=== PATIENT | male | born 1940 | race Caucasian/White ===

== ENCOUNTER 2023-06-08 16:50 | Inpatient (IN) | payer MEDICARE, BC, SELFPAY ==
[2023-06-08] VITALS (9 sets, daily range): BP systolic 134–164; BP diastolic 54–77; BMI 27.4; BMI 28.0
[2023-06-08 13:52] LABS: % Basophils 0.3 % (0-2); % Eosinophils 0.1 % (0-6); % Immature Granulocytes 0.4 % (0-0.5); % Lymphocytes 13.1 % (20.5-51.1); % Monocytes 10.7 % (1.7-9.3); % Neutrophils 75.4 % (42.2-75.2); Absolute Basophils 0.1 10^3/uL (0-0.2); Absolute Immature Granulocytes 0.1 10^3/uL (0-0.05); Absolute Lymphocytes 2.1 10^3/uL (1.2-3.4); Absolute Monocytes 1.7 10^3/uL (0.1-0.6); Absolute Neutrophils 11.8 10^3/uL (1.4-6.5); Hematocrit 35.1 % (39.0-52.0); Hemoglobin 12.1 g/dL (13.0-18.0); Mean Corp Hgb Conc. 34.5 g/dL (33.0-37.0); Mean Corpuscular Hgb 29.4 pg (27.0-31.0); Mean Corpuscular Volume 85.2 fL (80.0-94.0); Mean Platelet Volume 11.5 fL (7.4-10.4); Nucleated Red Blood Cells % 0 % (-); Platelet Count 219 10^3/uL (130-400); Red Blood Cell Count 4.12 10^6/uL (4.70-6.10); Red Cell Dist. Width 13.6 % (11.5-14.5); White Blood Cell Count 15.7 10^3/uL (4.8-10.8)
[2023-06-08 14:07] LABS: Blood Urea Nitrogen 30 mg/dl (9-20); Calcium 9.2 mg/dl (8.4-10.2); Carbon Dioxide 20 mmol/L (22-30); Chloride 102 mmol/L (98-107); Estimated Creatinine Clearance 55 ml/min; Glucose 110 mg/dl (70-99); Sodium 131 mmol/L (135-145); eGFR > 60.00
--- NOTE | 2023-06-08 14:11 | ED.GENMED ---
History of Present Illness
General
Chief Complaint: Change in Mental Status
Source: patient and ambulance crew
Exam Limitations: altered mental status
Time Seen by Provider: 06/08/23 13:56
Nursing documentation reviewed up to this point in time: agreed with
Travel History
Have you had any contact with someone who has COVID-19?: Unable to Answer
Do you have any symptoms of coronavirus? Fever > 100 degrees, chills, cough, shortness of breath, sore throat, loss of taste or smell, muscle aches, or headache?: Unable to Answer
History of Present Illness
History of Present Illness:
Patient presents to emergency department for evaluation secondary to confusion noted by family members today. Upon arrival, patient is alert and awake, but confused. Patient is unable to verbalize why he is in the hospital. However, denies any
pain. Per paramedics, it is unknown when patient was last seen normal at his baseline.
Past History
Past History
ED Past Medical History: CAD, GERD, HTN and Valvular disease
ED Past Surgical History: Cardiac (Valve repair. Cardiac bypass) and Other (Hiatal hernia)
Social History
Tobacco: Non-smoker
Employment: Retired
Review of Systems
Review of Systems
Allergies reviewed?: Yes
Unable to obtain full review of systems at this time due to: other (Mental status change)
All Other Systems: Not applicable
Phy Exam
Physical Exam
Physical Exam:
Physical Exam
General: no apparent distress, not acutely ill. afebrile
Head: nc/at. eomi
Neck: supple. no meningeal signs.
Heart: s1/s2 regular rate and rhythm, no murmur. equal radial pulses.
Lungs: no acute respiratory distress. clear bilaterally
Abdomen: normal bowel sounds. not tender.
Neuro: alert and oriented x 2. no focal neurological deficits. slowed speech noted. lack of comprehension noted intermittently.
Skin: no rash
Psychiatric: well kept. interactive and cooperative
Extremities: LE edema, nonpitting. no calf tenderness.
Course
Orders/Labs/Results
Orders:
Orders
06/08/23 13:25
Electrocardiogram (*1) Urgent
Reason for Study: Bradycardia / Tachycardia
EKG- Treatment ONCE
06/08/23 13:33
Basic Metabolic Panel Urgent
COVID-19 Antigen Urgent
Source: Nasal Swab
Complete Blood Count/With Diff Urgent
TSH Reflex To Free T4 Urgent
Comment: ADD ON
06/08/23 14:09
Add On- LAB Urgent
Tests Added?: magnesium, cpk, tsh to reflex free T4
06/08/23 14:10
CT Head W/o Iv Contrast Urgent
Comment:
Reason For Exam: mental status change
06/08/23 15:22
Comprehensive Metabolic Panel Urgent
Creatine Phosphokinase Urgent
Magnesium Urgent
Urinalysis Reflex To Culture Urgent
Date Specimen was Collected: 06/08/23
Time Specimen was Collected: 15:09
Urine Microscopic Reflex Cult Urgent
06/08/23 15:35
Aspirin 325 mg PO NOW STA
06/08/23 16:07
Admit/Transfer Patient As Directed
Co-Sign Provider:
Level of Care: Inpatient admission
Assign to:: Telemetry
Physician / Group: Dr Hull
Diagnosis: CVA
Reason for Telemetry: CVA/TIA
Date to Stop Telemetry: 06/11/23
Time to Stop Telemetry: 11:00
Reason for Hospitalization: pte p/w ams and weakness
Expected length of stay greater than two midnights?: Yes
ELOS- Estimated Length of Stay in days: 2
I certify the patient meets the requirements for IP care: Yes
06/08/23 16:08
Code Status As Directed
Resuscitation Status: Full Code
06/08/23 16:24
Code Status As Directed
Resuscitation Status: Do not resuscitate
Reached after discussion with pt or family/Healthcare POA: Yes
DNR Bracelet Application ONCE
06/08/23 16:31
NEUROLOGY CONSULT Routine
Consulting Provider: Faith Caceres
Was physician already notified: Yes
Reason for consult: cva
06/09/23 06:00
Echo 2D MMode Color/Doppler Routine
Reason for Study: stroke
Cardiology Consult: Michael Dinh
Comment: 151/64
06/11/23 11:00
DC Protocol for Telemetry ONCE
Abnormal Lab Results
06/08/23 06/08/23
13:33 15:22
WBC 15.7 H 10^3/uL
(4.8-10.8)
RBC 4.12 L 10^6/uL
(4.70-6.10)
Hgb 12.1 L g/dL
(13.0-18.0)
Hct 35.1 L %
(39.0-52.0)
MPV 11.5 H fL
(7.4-10.4)
Abs Immat Gran (auto) 0.1 H 10^3/uL
(0-0.05)
Absolute Neuts (auto) 11.8 H 10^3/uL
(1.4-6.5)
Absolute Monos (auto) 1.7 H 10^3/uL
(0.1-0.6)
Neutrophils % 75.4 H %
(42.2-75.2)
Lymphocytes % 13.1 L %
(20.5-51.1)
Monocytes % 10.7 H %
(1.7-9.3)
Sodium 131 L mmol/L 133 L mmol/L
(135-145) (135-145)
Carbon Dioxide 20 L mmol/L
(22-30)
BUN 30 H mg/dl 32 H mg/dl
(9-20) (9-20)
Glucose 110 H mg/dl 113 H mg/dl
(70-99) (70-99)
Total Bilirubin 1.5 H mg/dl
(0.2-1.3)
Creatine Kinase 845 H U/L
(55-170)
Urine Ketones 1+ A
(Negative)
Urine Bilirubin 1+ A
(Negative)
Leukocyte Esterase Rfl Trace A
(Negative)
06/08/23 13:33
06/08/23 15:22
Vital Signs
Initial and Last Documented VS:
Initial Vital Signs
Pulse Resp Pulse Ox
56 13 97
06/08/23 13:16 06/08/23 13:16 06/08/23 13:16
Last Documented Vital Signs
Temp Pulse Resp BP Pulse Ox
97.8 F 57 17 147/60 94
06/08/23 13:17 06/08/23 20:00 06/08/23 20:00 06/08/23 20:00 06/08/23 20:00
MDM/Problems Addressed
MDM/Problems Addressed:
CT head report reviewed and discussed with neurology (). Recommends aspirin only for now. Pt will be admitted for further evaluation and treatment.
Patient is not a candidate for tenecteplase, due to unknown time of onset of symptoms.
*EKG
Interpreted by ED Provider?: Yes
EKG Intrepretation Date: 06/08/23
Heart Rate: 61
Rate: normal
Rhythm: a-fib
[place]: normal axis
Ischemia: T-wave inversion
*Critical Care Note
Total Time (30-74mins, 75-104mins- exclusive of procedures): Not Applicable
ED Attending Note
-
Portions of this chart may have been created with voice recognition software.� Occasional wrong word or��sound alike� substitutions may have occurred due to the inherent limitations of voice recognition software.
Discharge Plan
Departure
Patient Disposition: Admit
Date of Disposition: 06/08/23
Time of Disposition: 15:44
Admit to: Telemetry
Presentation/result/management discussed w/ accepting MD/DO: Hospitalist
Discharge Problem:
Acute CVA (cerebrovascular accident)
Interventions
Interventions:
*Risk Screen - Suicide Last Done: 06/08/23 13:17
*General Assessment Last Done: 06/08/23 13:17
*Neglect/Abuse Screening Last Done: 06/08/23 13:17
ED- Fall Risk Assessment Last Done: 06/08/23 13:24
*ED COVID-19 Vaccine History Last Done: 06/08/23 13:17
*Nursing Disposition Last Done: 06/08/23 20:24
ED- Pulmonary Assessment Last Done: 06/08/23 13:24
ED- Neurological Assessment Last Done: 06/08/23 13:24
ED- Cardiac Assessment Last Done: 06/08/23 13:24
ED Swallowing Screen Last Done: 06/08/23 15:37
Discharge Date and Time
Discharge Date/Time: 06/08/23 20:24
[2023-06-08 14:13] LABS: COVID-19 Antigen Negative (Negative)
--- NOTE | 2023-06-08 14:35 | PHANOTE ---
06/08/2023, med rec tech, used pharmacy fill data and [facility] records from 05/04/2023 to obtain pt.'s med. history; pt. obtunded at time of interview and family do not know pt.'s meds.
[2023-06-08 15:11] LABS: TSH Reflex To Free T4 2.32 uIU/ml (0.47-4.68)
--- NOTE | 2023-06-08 15:38 | CON.NEURO ---
Consultation
Order
Date of Consultation: 06/08/23
Reason for Consult: Stroke
CC: none
HPI: This is an 83-year-old woman who presented to [facility] on June 08, 2023 with encephalopathy. According to patient's nephew Mr. Porter was found confused when his family picked him up for family today. Last time seen
normal�unknown. Reportedly his nephew could not find Eliquis among his medications
ER VS: 155/54, 56, afebrile
Labs: WBC�15.7, hemoglobin�12.1,
CT head�subacute left MCA territory infarct.
EKG:A-Fib.
PMH: A-Fib, CAD, HTN, CHF, DLP, GERD, BPH, polio?
PSH:CABG, MVR, bilateral cataract surgery
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
FH: Unknown
All: Cephalosporins, penicillins,
ROS: Limited due to aphasia
General: Well developed. In no acute distress.
Cardio: irregular rate and rhythm. Extremities are without cyanosis or edema.
Neuro:
Mental Status: Alert, oriented to name, age. Moderate to severe expressive and receptive aphasia. Follows simple requests intermittently. Perseverates.
Cranial Nerves: Pupils are equally round, surgical. Horizontal EOMs full. BTT L>R No ptosis. No nystagmus. Face symmetric. Normal hearing AU. No dysarthria.
Motor: No pronator or leg drift
Reflexes: Negative grasp and clonus bilateral
Sensory: Unable due to poor attention
Coordination: No tremors myoclonic movements
Gait: deferred
Assessment and Plan:
I. Acute L MCA territory stroke. Likely etiology-embolic. Not a candidate to IV thrombolysis due to the timing of symptoms onset.
II. A-fib
III. Vascular encephalopathy
-Continue Telemetry monitoring.
-Seizure precaution
-TTE with bubble studies, if unremarkable-please proceed with MIKE.
-Start ASA 81 mg QD
-With deferred systemic anticoagulation due to size of the stroke
-Lipitor 40 mg QHS.
-Please check HbA1C, LDL.
-Speech therapy
-Brain MRI without andrei
-PT.
-SW consult
-DVT prophylaxis.
I personally reviewed all radiology and labs along with past medical records pertinent to current medical problems. Total time spent in patient care is 60 minutes.
Thank you for allowing us to participate in the care of this patient. We will continue to follow. Please do not hesitate to contact us with any questions or concerns.
Subjective/Objective
Subjective Data
Date of Service: June 08, 2023
Objective Data
Vital Signs
Temp Pulse Resp BP Pulse Ox
36.6 C 63 17 154/77 94
06/08/23 13:17 06/08/23 15:30 06/08/23 15:30 06/08/23 15:03 06/08/23 15:04
Lab Results
06/08/23 13:33
Sodium 131 mmol/L (135-145) L 06/08/23 13:33
Potassium mmol/L (3.5-5.1) 06/08/23 13:33
BUN 30 mg/dl (9-20) H 06/08/23 13:33
Glucose 110 mg/dl (70-99) H 06/08/23 13:33
Calcium 9.2 mg/dl (8.4-10.2) 06/08/23 13:33
Patient Allergies
cefaclor Allergy (Verified 07/21/22 11:15)
Unknown
Cephalosporins Allergy (Verified 07/21/22 11:15)
Unknown
Penicillins Allergy (Verified 07/21/22 11:15)
Unknown
Medications
-
Home Medications
Medication Instructions Recorded
apixaban 5 mg tablet (Eliquis) 5 mg PO BID #60 tabs 07/21/22
furosemide 20 mg tablet (Lasix) 20 mg PO DAILY #30 tabs 07/21/22
atorvastatin 40 mg tablet 40 mg PO DAILY 06/08/23
finasteride 5 mg tablet 5 mg PO DAILY 06/08/23
lisinopril 20 mg tablet 20 mg PO DAILY 06/08/23
metoprolol succinate 100 mg 100 mg PO DAILY 06/08/23
tablet,extended release 24 hr
omeprazole 20 mg capsule,delayed 20 mg PO DAILY 06/08/23
release
Vital Signs and Labs
-
Vital Signs and Labs:
Vital Signs
Temp Pulse Resp BP Pulse Ox
36.6 C 63 17 154/77 94
06/08/23 13:17 06/08/23 15:30 06/08/23 15:30 06/08/23 15:03 06/08/23 15:04
Lab Results
06/08/23 13:33
06/08/23 15:22
Sodium 133 mmol/L (135-145) L 06/08/23 15:22
Potassium 4.1 mmol/L (3.5-5.1) 06/08/23 15:22
BUN 32 mg/dl (9-20) H 06/08/23 15:22
Glucose 113 mg/dl (70-99) H 06/08/23 15:22
Calcium 9.5 mg/dl (8.4-10.2) 06/08/23 15:22
Home Medications
-
Home Medications
apixaban 5 mg tablet (Eliquis) 5 mg PO BID #60 tabs 07/21/22
furosemide 20 mg tablet (Lasix) 20 mg PO DAILY #30 tabs 07/21/22
atorvastatin 40 mg tablet 40 mg PO DAILY 06/08/23
finasteride 5 mg tablet 5 mg PO DAILY 06/08/23
lisinopril 20 mg tablet 20 mg PO DAILY 06/08/23
metoprolol succinate 100 mg tablet,extended release 24 hr 100 mg PO DAILY 06/08/23
omeprazole 20 mg capsule,delayed release 20 mg PO DAILY 06/08/23
[2023-06-08] MEDS: ASPIRIN 325 MG PO (15:42)
[2023-06-08 15:52] LABS: Urine Albumin Trace (Neg - Trace); Urine Bilirubin 1+ (Negative); Urine Character Clear (Clear); Urine Color Yellow; Urine Glucose Negative (Negative); Urine Ketone 1+ (Negative); Urine Leukocyte Trace (Negative); Urine Nitrite Negative (Negative); Urine Occult Blood Negative (Negative); Urine Urobilinogen Negative (Neg - 1+)
--- NOTE | 2023-06-08 15:52 | HPS.HSE ---
Family Physician
-
Family Physician: NO INTERVIEW UNKNOWN
Chief Complaint
-
altered mental status
History of Present Illness
Patient 83 years old male with medical history of CAD, CHF, hypertension, hyperlipidemia, A-fib, presented to the hospital with mental status changes. Patient unable to provide meaningful information due to aphasia and mental status changes in the
ED and most information gathered from medical records and family at bedside. His nephew tells me he does not remember the last time he was seen well but today he was noticed to be confused when he was can be picked up for a family and he
was unable to express the ideas that he wanted to verbally. Family tells me last time they probably saw him last back in [facility] and they relate that he lives by himself independently. He denies chest pain or shortness of breath. He tells me
that he took Eliquis pills but he does not remember when and cannot elaborate further. Nephew could not find Eliquis among his medications when visited. No fevers or chills. In the ER, CT of the head with a large evolving left MCA territory
infarct. He was referred to hospitalist for further evaluation.
Medical History
Past Medical History
Past Medical History: Reports Other (Hypertension, hyperlipidemia, CAD, history of mitral valve repair, CHF, A-fib, GERD, BPH, polio.)
Past Surgical History: Reports Other (mitral valve repair, cardiac bypass surgery, bilateral cataract surgery.)
Social History
Tobacco: Non-smoker
Alcohol: None
Drug: None
Family History
Family History: Not pertinent
Allergies / Home Medications
Allergies reflects when Allergies were last updated in [facility].
Home Medications with original date entered in [facility]
Allergy/Medication List:
Allergies
Allergy/AdvReac Type Severity Reaction Status Date / Time
cefaclor Allergy Unknown Verified 07/21/22 11:15
Cephalosporins Allergy Unknown Verified 07/21/22 11:15
Penicillins Allergy Unknown Verified 07/21/22 11:15
Home Medications
apixaban 5 mg tablet (Eliquis) 5 mg PO BID #60 tabs 07/21/22
furosemide 20 mg tablet (Lasix) 20 mg PO DAILY #30 tabs 07/21/22
atorvastatin 40 mg tablet 40 mg PO DAILY 06/08/23
finasteride 5 mg tablet 5 mg PO DAILY 06/08/23
lisinopril 20 mg tablet 20 mg PO DAILY 06/08/23
metoprolol succinate 100 mg tablet,extended release 24 hr 100 mg PO DAILY 06/08/23
omeprazole 20 mg capsule,delayed release 20 mg PO DAILY 06/08/23
Review of Systems
-
Unable to obtain full review of systems at this time due to: Other (Altered mental status and aphasia.)
Physical Exam
Vital Signs
Vital Signs
Temp Pulse Resp BP Pulse Ox
97.8 F 63 17 154/77 94
06/08/23 13:17 06/08/23 15:30 06/08/23 15:30 06/08/23 15:03 06/08/23 15:04
Physical exam:
General: Acutely ill
HEENT: Normocephalic, Atraumatic and Moist Mucous Membranes
Respiratory: Clear to Auscultation; Negative Wheezes, Rales or Rhonchi
Cardiac: Irregular rate and rhythm and S1/S2
GI: Soft, Nontender and Nondistended
Musculoskeletal: No Clubbing, No Cyanosis and No Edema
Neuro: Awake, Alert and Disoriented, significant expressive and receptive aphasia, mild weakness on the right side. He perseverates in conversation.
Psych: Calm, limited judgment and insight.
Physical Exam
General: Other
Laboratory Results
-
06/08/23 13:33
Laboratory Results
Total Bilirubin Cancelled 06/08/23 13:33
AST Cancelled 06/08/23 13:33
ALT Cancelled 06/08/23 13:33
Alkaline Phosphatase Cancelled 06/08/23 13:33
Impression/Plan
-
IMPRESSION:
Patient 83 years old male with multiple comorbidities presented to the hospital with mental status changes and found to have acute CVA. Patient has a large evolving nonhemorrhagic infarct in the mid to posterior left MCA territory.
Impression:
Acute CVA
Toxic metabolic encephalopathy likely due to vascular injury
Leukocytosis, reactive versus infectious-likely reactive
Hypertension
A-fib
Anemia
Hyponatremia
Mild rhabdomyolysis
Mild hyperbilirubinemia
Conditions prior to presentation:
Hypertension
Hyperlipidemia
Atrial fibrillation
CAD
PLAN:
Not a candidate to thrombolysis due to due to out of time window from symptoms onset and unknown timeframe use of anticoagulants.
Continue aspirin, will do 81 mg p.o. daily
Hold off Eliquis until neurology clears him to restart in the setting of large stroke
Gentle hydration
Continue statin, will do atorvastatin 40 mg p.o. nightly
Check lipid profile a.m.
Plan for MRI of the brain
Plan for ultrasound of carotids
Plan for transthoracic echocardiogram
Permissive hypertension -->IV hydralazine only as needed for extreme levels of blood pressure
Check hemoglobin A1c in a.m.
UA unremarkable for infection
Obtain a chest x-ray
Follow-up WBC and temperature curve
Maintain euglycemia, normothermia
Follow-up NIH score
Neurology consult
PT OT eval
Speech therapy eval
SCDs and if stable Lovenox 40 mg SQ from tomorrow on
CODE STATUS DNR (reviewed living will with family at bedside today)
Total time spent on today's encounter was 75 minutes which included time spent in counseling the patient/family regarding diagnosis and treatment plan as listed above, goals of care, and symptom management. Case was discussed with nursing staff,
specialists. All labs and imaging personally reviewed by me. Remainder the time spent in detailed review of previous records, lab data, imaging, and other medical provider documentation.
[2023-06-08 16:15] LABS: Urine Red Blood Cell 0-2 /HPF (0-2)
[2023-06-08 16:17] LABS: ALT (SGPT) 24 U/L (0-50); AST (SGOT) 50 U/L (17-59); Albumin 4.2 g/dl (3.5-5.0); Alkaline Phosphatase 73 U/L (38-126); Blood Urea Nitrogen 32 mg/dl (9-20); Calcium 9.5 mg/dl (8.4-10.2); Carbon Dioxide 24 mmol/L (22-30); Chloride 98 mmol/L (98-107); Estimated Creatinine Clearance 61 ml/min; Glucose 113 mg/dl (70-99); Magnesium 1.9 mg/dl (1.6-2.3); Potassium 4.1 mmol/L (3.5-5.1); Sodium 133 mmol/L (135-145); Total Bilirubin 1.5 mg/dl (0.2-1.3); Total Protein 6.8 g/dl (6.3-8.2); eGFR > 60.00
[2023-06-08 16:23] LABS: Creatine Phosphokinase 845 U/L (55-170)
--- NOTE | 2023-06-08 20:30 | PTCARENOTE ---
Rn [employer] park worker supervisor-Call to family who confirmed that they spoke with the patient on Tuesday to arrange for the family to pick patient up today for a . Patient's niece -in-law confirmed that patient lives alone at [facility] and
confirmed primary care doctor.
[2023-06-08] MEDS: NSS 1000 IV (21:33)
[2023-06-08] MEDS: LIPITOR 40 MG PO (21:34)
[2023-06-09 03:27] VITALS: BP 131/63
--- NOTE | 2023-06-09 03:32 | PTCARENOTE ---
Pt afib on monitor, alarming several times with HR in 30s with pauses. Pt sleeping. ASSEMBLER BODY notified, cardiology consulted.
--- NOTE | 2023-06-09 03:45 | W.PN.UPDATE ---
Update Note
Progress Note Update
ER nurse notified this [employer] of patient's HR down to 30's and unable to capture in EKG. EKG shows Afib HR in 50's. Patient in no apparent distress. Patient is on 4th floor and still continuing to drop HR down to 30's and sustaining in 50's, BP
160's/60's, No hx of sleep apnea. Hx of Afib, unsure if patient took Metoprolol at home. Eliquis is on hold in the setting of large stroke. Cardiology consult in place.
[2023-06-09 04:10] VITALS: BMI 28.0
[2023-06-09 07:43] VITALS: BP 152/96
--- NOTE | 2023-06-09 08:11 | W.PN.HOSP.TC ---
Today's Communication/Plan
-
MRI of the brain, echocardiogram, ultrasound carotids. Cardiology neurology and rehab consults.
Assessment / Plan
Assessment / Plan
Physical exam:
General: Acutely ill
HEENT: Normocephalic, Atraumatic and Moist Mucous Membranes
Respiratory: Clear to Auscultation; Negative Wheezes, Rales or Rhonchi
Cardiac: Irregular rate and rhythm and S1/S2
GI: Soft, Nontender and Nondistended
Musculoskeletal: No Clubbing, No Cyanosis and No Edema
Neuro: Awake, Alert and Disoriented, significant expressive and receptive aphasia, mild weakness on the right side.� He perseverates in conversation.
Psych: Calm, limited judgment and insight.
A/P:
Impression:
Acute CVA
Toxic metabolic encephalopathy likely due to vascular injury
Bradycardia
Leukocytosis, reactive versus infectious-likely reactive
Hypertension
A-fib
Anemia
Hyponatremia
Mild rhabdomyolysis
Mild hyperbilirubinemia
Conditions prior to presentation:
Hypertension
Hyperlipidemia
Atrial fibrillation
CAD
PLAN:
Cardiology consulted
Not a candidate to thrombolysis due to due to out of time window from symptoms onset and unknown timeframe use of anticoagulants.
Continue aspirin, will do 81 mg p.o. daily
Hold off Eliquis until neurology clears him to restart in the setting of large stroke
Gentle hydration
Continue statin, will do atorvastatin 40 mg p.o. nightly
Check lipid profile and LDL 33
Plan for MRI of the brain-->
Plan for ultrasound of carotids-->
Rehab consult
Plan for transthoracic echocardiogram--> EF 54%, mitral valve repair with mean gradient 12 mmHg, mild aortic and mild to moderate tricuspid regurgitation, trace mitral regurgitation, and pulmonary artery pressure of 60 mmHg.
Permissive hypertension -->IV hydralazine only as needed for extreme levels of blood pressure
Check hemoglobin A1c in a.m.--> 5.8
UA unremarkable for infection
Obtain a chest x-ray and no signs of infection either
Obtain blood cultures
Follow-up WBC and temperature curve
Maintain euglycemia, normothermia
Follow-up NIH score
Neurology consult appreciated
PT OT eval
Speech therapy eval
SCDs and if stable Lovenox 40 mg SQ from today on
CODE STATUS DNR�
Anticipated Discharge: 24 - 48 hours
Subjective/Interval History
-
Date of Service: June 09, 2023
Patient seen and examined. Remains aphasic.
Objective Data
-
Vital Signs:
Vital Signs
Temp Pulse Resp BP Pulse Ox
98.4 F 61 22 131/63 93
06/09/23 03:27 06/09/23 03:27 06/09/23 03:27 06/09/23 03:27 06/09/23 03:27
I&O
06/08/23 06/09/23 06/10/23
06:59 06:59 06:59
Intake Total 825 / 825
Output Total 500 / 500
Balance 325 / 325
[2023-06-09 08:40] VITALS: BMI 28.0
[2023-06-09] MEDS: LOW STRENGTH ASPIRIN 81 MG PO (08:41)
[2023-06-09] MEDS: NSS 1000 IV (08:41)
[2023-06-09 09:37] LABS: Creatine Phosphokinase 440 U/L (55-170); HDL Cholesterol 28 mg/dl; LDL Cholesterol, Calculated 33 mg/dl; Total Cholesterol 86 mg/dl (50-199); Triglyceride 128 mg/dl (10-149); Very Low Density Lipoprotein 25 mg/dl (0-30)
--- NOTE | 2023-06-09 10:33 | CON.CAR ---
Addendum entered and electronically signed by Gino Sands MD 06/09/23 14:36:
I saw and examined the patient.
The Orthopedic Physical Therapist's note was reviewed and I agree with the note.
Comment:
GEN: No distress, awake
HEENT: supple, anicteric, mmm
LUNGS: CTA, no wheezes/rales
CV: irreg, S1/S2, 1/6 syst LSB, no gallop
ABD: soft, BS+, NT/ND
EXT: No edema
NEURO: Expressive aphasia
SKIN: No rash
plan:
83-year-old male with past medical history of chronic heart failure with preserved ejection fraction, CABG/mitral valve repair 2002, permanent atrial fibrillation presents with acute left MCA CVA and marked expressive aphasia. He was unclear
whether he was taking his Eliquis. We are asked to see him regarding bradycardia and pauses on telemetry.
We will review his records.
Check echocardiogram to reevaluate his valve and LVEF.
His A-fib is rate controlled off metoprolol for now. I suspect we will need to restart his dose but at likely 25 or 50 mg. We will follow him on telemetry for the next 24 hours.
Continue aspirin for now but resume Eliquis when okay with neurology.
Continue atorvastatin.
Would allow some permissive hypertension per neurology protocol.
Original Note:
Consultation
Consultation Request
Date/Time Consultation Performed: 06/09/23
Requesting Provider: Dr. Hull
Performing Provider: Jocelyn Pérez PA-C for Dr. Sands
Reason for Consultation: afib, angela, CVA
Medical History
-
Chief Complaint: change in mental status
History of Present Illness:
Patient is an 83 yo M with PMH of chronic HFpEF, prior CABG x1 and MV repair in 2002 at [facility], persistent atrial fibrillation on eliquis who presented to due to change in mental status. Family came to pick patient up for a family and
noted that he was confused. In ER, underwent head CT which showed large L MCA territory infarct. He was not considered candidate for TPA due to unknown last normal. He lives alone, independently. His nephew could not find eliquis among his home
medications when he looked. He is noted to have some bradycardia and pauses on tele resulting in cardiology consult. He is currently eating breakfast, but unable to use his fork and spoon, having coordination issues. Answers questions, but not
always appropriate responses. Most recent NIH 8 per nrusing.
PMH:
Persistent atrial fibrillation
Chronic eliquis OAC
Chronic HFpEF
History of mitral valve repair and CABGx1 WALKER to 2002 at [facility]
HTN
HLD
Past Medical History
Past Medical History: Other (in HPI)
Social History
Tobacco: Non-Smoker
Alcohol: Occasional
Living: Alone
Employment: Retired
Family History
Family History: Reviewed & Not Pertinent
Allergies / Home Medications
Allergy/AdvReac Type Severity Reaction Status Date / Time
cefaclor Allergy Unknown Verified 07/21/22 11:15
Cephalosporins Allergy Unknown Verified 07/21/22 11:15
Penicillins Allergy Unknown Verified 07/21/22 11:15
Medication Instructions Recorded Confirmed Type
apixaban 5 mg tablet (Eliquis) 5 mg PO BID #60 tabs 07/21/22 06/08/23 Rx
furosemide 20 mg tablet (Lasix) 20 mg PO DAILY #30 tabs 07/21/22 06/08/23 Rx
atorvastatin 40 mg tablet 40 mg PO DAILY 06/08/23 06/08/23 History
finasteride 5 mg tablet 5 mg PO DAILY 06/08/23 06/08/23 History
lisinopril 20 mg tablet 20 mg PO DAILY 06/08/23 06/08/23 History
metoprolol succinate 100 mg 100 mg PO DAILY 06/08/23 06/08/23 History
tablet,extended release 24 hr
omeprazole 20 mg capsule,delayed 20 mg PO DAILY 06/08/23 06/08/23 History
release
Review of Systems
-
History Source: Patient and Other (nursing)
All other systems: Negative unless noted
Physical Exam
Vital Signs
Temp Pulse Resp BP Pulse Ox
98.4 F 61 22 131/63 93
06/09/23 03:27 06/09/23 03:27 06/09/23 03:27 06/09/23 03:27 06/09/23 03:27
Lab Results
06/08/23 13:33
06/08/23 15:22
Physical Exam
General: No Apparent Distress and Comfortable
HEENT: Normocephalic, Anicteric and Moist Mucous Membranes
Respiratory: Clear and Non Labored Respirations
Cardiac: S1/S2 and Irregular Rhythm
GI: Soft, Non Tender, Non Distended and Normal Bowel Sounds
Musculoskeletal: No Clubbing, No Cyanosis and No Edema
Skin: Warm and Dry
Neuro: Awake, Alert and Oriented (to self. able to tell me he is not at home. cannot answer all questions appropriately. having trouble eating breakfast without help)
Impression / Plan
-
Primary Job Coach/Job Developer:Dr. Dinh
Assessment:
Presentation with change in mental status
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
Persistent atrial fibrillation, now with slow vent response, pauses <2.5 seconds
Chronic eliquis OAC, concern for recent noncompliance
Chronic HFpEF
History of mitral valve repair and CABGx1 WALKER to LAD 2002 at [facility]
HTN
HLD
ECHO 09/2022: EF 54%, mild cLVH, RV dilated, mod dilated LA, s/p MV repair with mean gradient 12mmHg, trace MR, mild AR, mild to mod TR, PAP 60mmHg
Plan:
-Patient presents with change in mental status and confusion. found to have large L CVA by head CT. suspected eliquis noncompliance as nephew unable to find eliquis at home
-brain MRI pending
-cardiology consulted due to afib with slow vent response as well as occasional pauses all <2.5 seconds. patient asymptomatic. OP toprol on hold at present
-check echo
-TSH WNL
-PT/OT/ST evals
-plan to restart eliquis when ok from neurology standpoint. currently on asa
-check CVE. continue statin
-DNR code status
Data Reviewed
-
EKG: Tracing Personally Visualized and interpreted
CT Scan: Report Reviewed by me
Medical Tests (Nuc Med, Echo etc): Report Reviewed by me
Labs: Labs Reviewed by me
Old Records: Reviewed
--- NOTE | 2023-06-09 11:19 | PTOTSP ---
ST Acute Care Evaluation
Pt presents with mild oral and esophageal dysphagia characterized by impulsivity in bite/sip size and intake rate as well as persistent belching s/p ingestion which could be related to fast intake rate vs esophageal dysfunction.
Pt presents with MODERATE receptive and expressive aphasia characterized by impaired automatic sequences, impaired repetition, anomia, slow processing, difficulty with complex tasks, impaired comprehension (very agreeable/inclined to say 'yes' more
than appropriate), impaired social domains, semantic paraphasias, phonemic paraphasias, and disfluencies with repetition and novel verbal output. Pt has some intact functional, automatic phrases for communication.
Recommendations:
- Continue with regular solids, thin liquids, and meds as tolerated.
- 1:1 assistance/supervision with ALL PO INTAKE to monitor rate of intake and bite/sip size.
- Continue with HARDBOARD SUPERVISOR services for dysphagia and cognitive linguistic tx.
- Acute rehab upon d/c for intensive, daily HARDBOARD SUPERVISOR services to target cognitive function, verbal communication, and dysphagia.
[2023-06-09 11:30] VITALS: BP 136/68; PULSE 78; O2SAT 96
[2023-06-09 11:30] LABS: Glycohemoglobin (HgbA1c) 5.8 % (4.0-5.6)
[2023-06-09 11:40] VITALS: BP 136/68; PULSE 78; O2SAT 96
--- NOTE | 2023-06-09 11:48 | W.PN.NEURO.1 ---
Today's Communication / Plan
-
.
Subjective/Objective
Subjective Data
Date of Service: June 09, 2023
Mr. Porter continues to have moderate to severe expressive and receptive aphasia. No reports of abnormal movements.
Brain MRI, TTE are pending
Hemoglobin A1c�5.8,
PMH: A-Fib, CAD, HTN, CHF, DLP, GERD, BPH, polio?
PSH:CABG, MVR, bilateral cataract surgery
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
FH: Unknown
All: Cephalosporins, penicillins,
ROS: Limited due to aphasia
�
�
General: Well developed. In no acute distress.
Cardio: irregular rate and rhythm. Extremities are without cyanosis or edema.
Neuro:
Mental Status: Alert, oriented to name, age.� Moderate to severe expressive and receptive aphasia.� Follows simple requests intermittently.� Perseverates.�
Cranial Nerves: Pupils are equally round, surgical.� Horizontal EOMs full.� BTT L>R� No ptosis.� No nystagmus. Face symmetric.� Normal hearing AU. � No dysarthria.
Motor:� � � No pronator or leg drift
Reflexes:� � � � � � Negative grasp and clonus bilateral
Sensory: � � Unable due to poor attention
Coordination: No tremors myoclonic movements
Gait: � � � � � deferred
Assessment and Plan:
�
I. Acute L MCA territory stroke. Likely etiology-embolic. Not a candidate to IV thrombolysis due to the timing of symptoms onset.
II.� A-fib
III.� Vascular encephalopathy, stable
-Continue Telemetry monitoring.
-Seizure precaution
-TTE
-ASA 81 mg QD
-Lipitor 40 mg QHS.
-Please check LDL.
-Speech therapy
-Brain MRI without andrei
-PT.
-SW consult
-DVT prophylaxis.
�
I personally reviewed all radiology and labs along with past medical records pertinent to current medical problems. Total time spent in patient care is 35 minutes.
�
Thank you for allowing us to participate in the care of this patient. We will continue to follow. Please do not hesitate to contact us with any questions or concern
Objective Data
Vital Signs
Temp Pulse Resp BP Pulse Ox
36.9 C 61 22 131/63 93
06/09/23 03:27 06/09/23 03:27 06/09/23 03:27 06/09/23 03:27 06/09/23 03:27
Lab Results
06/08/23 13:33
06/08/23 15:22
Sodium 133 mmol/L (135-145) L 06/08/23 15:22
Potassium 4.1 mmol/L (3.5-5.1) 06/08/23 15:22
BUN 32 mg/dl (9-20) H 06/08/23 15:22
Glucose 113 mg/dl (70-99) H 06/08/23 15:22
Calcium 9.5 mg/dl (8.4-10.2) 06/08/23 15:22
LDL Cholesterol, Calc 33 mg/dl 06/09/23 06:34
Patient Allergies
cefaclor Allergy (Verified 07/21/22 11:15)
Unknown
Cephalosporins Allergy (Verified 07/21/22 11:15)
Unknown
Penicillins Allergy (Verified 07/21/22 11:15)
Unknown
--- NOTE | 2023-06-09 13:49 | PTCARENOTE ---
06/08- Patient attempted to get out of bed by himself asking for his nephew. He is agitated, confused but redirectable. AAOX2, WITT but catches breath at rest. POX=97% on RA; SI=834 but resolved to Sinus Rhythm upon rest. He is strong and steady
on feet but impulsive and poor at following commands. Bed Alarm intact.
[2023-06-09] MEDS: LOVENOX 40 MG SC (16:05)
[2023-06-09] MEDS: LIPITOR 40 MG PO (16:05)
--- NOTE | 2023-06-09 16:57 | CM ---
digital marketing manager reviewed patient's chart and met with patient and patient lives alone in a one story home, with one step to enter, patient is independent with adl's and ambulation, no dme, patient drives, physical therapy are recommending acute rehab
placement and options reviewed with patient and patient has selected [facility], referral sent to [facility].
Pharmacy: [facility]
Plan; Acute rehab, referral sent to [facility] at [facility].
[2023-06-09 19:53] VITALS: BP 147/68
[2023-06-09 23:36] VITALS: BP 155/68
[2023-06-10] VITALS (8 sets, daily range): BP systolic 132–180; BP diastolic 60–88
[2023-06-10] MEDS: NSS IV (05:53)
[2023-06-10] MEDS: LOW STRENGTH ASPIRIN PO (08:16)
--- NOTE | 2023-06-10 08:29 | W.PN.NEURO.1 ---
Documented by User: Luz Gomez NP 06/10/23 12:26
Today's Communication / Plan
-
.
Neuro Assessment/Plan
Assessment
This is an 83-year-old woman who presented to on June 08, 2023 with encephalopathy.� According to patient's nephew Mr. Porter was found confused when his family picked him up for family today.� Last time seen normal�unknown. Reportedly
his nephew could not find Eliquis among his medications. He was not a candidate for TNK/IAT due to unknown LNW time, on Eliquis with unknown last dose, and initial CT head already demonstrating a large infarct.
-CT head 06/08/23: Findings most likely representing a large evolving nonhemorrhagic infarct in the mid to posterior left MCA territory.
-MRI brain 06/08/23: LARGE ACUTE TRANSCORTICAL INFARCT in the LEFT PARIETAL and TEMPORAL LOBES containing acute petechial hemorrhage. SMALL ACUTE TRANSCORTICAL INFARCT in the lateral LEFT FRONTAL LOBE containing a small amount of hemorrhage. 5 mm
chronic lacunar infarct in the left putamen. Mild white matter leukoaraiosis in both cerebral hemispheres. Mild to moderate diffuse cerebral and cerebellar volume loss. 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
-Carotid ultrasound 06/09/23: Negative for flow-limiting carotid stenosis. By velocity criteria, any internal carotid artery stenosis present is in the range of 0-49%.
-TTE 06/09/23: Normal left ventricular chamber size. Hyperdynamic left ventricular systolic function. Mild concentric left ventricular hypertrophy. Left ventricular ejection fraction is 65-70% by volumetric assessment. Mildly enlarged right
ventricular size. Normal right ventricular systolic function. Indexed LA volume is severely abnormal (> 48 mL/m2).�Moderately dilated right atrium.
I. Acute L MCA territory stroke. Likely etiology-embolic.
II.� A-fib
III.� Vascular encephalopathy
Plan
-Hold Eliquis for at least 7 days from symptom onset due to large size of stroke. Continue aspirin 81mg daily for now, once Eliquis is resumed discontinue aspirin.
-MRA COW noncontrast ordered/pending to complete stroke workup.
-Goal normotension.
-Continue Telemetry monitoring.
-Seizure precautions.
-LDL goal <70. LDL is at goal at 33. Continue home atorvastatin 40mg daily.
-Goal normoglycemia, hbA1c is 5.8.
-PT/OT/ST evaluations.
-SW consult as patient lives alone and is going to need daily assistance now.
-DVT prophylaxis.
-Please contact our Neurology service with any questions/concerns. Patient needs to follow-up with Neurology as an outpatient, may see the TIMBER POISONER or one of the physicians.
Subjective/Objective
Subjective Data
Date of Service: June 10, 2023
No acute events overnight. ROS somewhat limited due to aphasia but patient denies any headache, vision changes, swallowing difficulty, numbness, weakness, chest pain, palpitations, and shortness of breath.
Objective Data
Vital Signs
Temp Pulse Resp BP Pulse Ox
99.7 F 63 16 145/61 97
06/10/23 07:45 06/10/23 07:45 06/10/23 07:45 06/10/23 07:45 06/10/23 07:45
Sodium 133 mmol/L (135-145) L 06/08/23 15:22
Potassium 4.1 mmol/L (3.5-5.1) 06/08/23 15:22
BUN 32 mg/dl (9-20) H 06/08/23 15:22
Glucose 113 mg/dl (70-99) H 06/08/23 15:22
Calcium 9.5 mg/dl (8.4-10.2) 06/08/23 15:22
LDL Cholesterol, Calc 33 mg/dl 06/09/23 06:34
Patient Allergies
cefaclor Allergy (Verified 07/21/22 11:15)
Unknown
Cephalosporins Allergy (Verified 07/21/22 11:15)
Unknown
Penicillins Allergy (Verified 07/21/22 11:15)
Unknown
LDL Level: <70, continue statin
Review of Systems
-
Unable to obtain full review of systems at this time due to: Aphasia
History Source: Patient
EENT: Negative Decreased Vision or Swallowing Difficulty
Respiratory: Negative Trouble Breathing
Cardiac: Negative Chest Pain or Palpitations
Neuro: Speech Problem; Negative Headache, Weakness or Numbness
Physical Exam
-
General: No Apparent Distress
Eyes: No Ptosis; Negative PERRLA (R pupil 3 BR, L pupil 2 BR)
HEENT: Normocephalic
Neck: Full Range of Motion
Respiratory: No Dyspnea
GI: Non-distended
Extremities: No Clubbing, No Cyanosis and No Edema
Extended Neurological Exam
Mood & Affect: Mood Unremarkable and Affect Unremarkable
Attention Span & Concentration: Awake, Alert and Interactive
Memory: Reduced (Oriented to self, place and situation, forgetful to time.)
Tremor: Hand Tremor Absent and Head Tremor Absent
Involuntary Movement: None
Speech: Expressive Aphasia, Receptive Aphasia and Moderately Reduced Output
Cranial Nerve II: Left Eye: Pupillary Reactivity Unremarkable and Unable to Assess (appears to have reduced vision on the right but this may be neglect); Negative Pupillary Size Unremarkable (2 round)
Cranial Nerve II: Right Eye: Pupillary Reactivity Unremarkable and Unable to Assess (appears to have reduced vision the right but this may be due to neglect); Negative Pupillary Size Unremarkable (3 round)
Cranial Nerves III, IV, : Extraocular Movement: Extraocular Movement Full in all Directions
Cranial Nerve V: Facial Sensation: Unable to Assess
Cranial Nerve VII: Facial Symmetry: Normal Facial Symmetry
Cranial Nerve VIII: Hearing: Unremarkable Hearing to Normal Conversational Volume
Cranial Nerves IX, X: Palate Movement: Palate Elevation Symmetric
Cranial Nerve XI: Shoulder Shrug: Unable to Assess
Cranial Nerve XII: Tongue Protusion: Midline
Muscle Strength, Overall: Full Throughout (Right hemineglect, needs prompting to complete tasks on the right)
Pronator Drift: No Drift in Upper Extremities and No Drift in Lower Extremities
Deep Tendon Reflexes: Unremarkable Throughout
Cold Sensation: Unremarkable
Vibration Sensation: Unable to Assess
Touch Sensation: Unable to Assess
Coordination: Dynfpu-gunw-tyayfp Testing Unremarkable
Babinski Sign: Absent Bilaterally
Modified Aleena Score (MRS)
-
Modified [place] Scale (mRS): Moderate disability. Requires some help, able to walk unassisted.
Score: 3
Data Reviewed
-
CT Head: Report Reviewed and Image Reviewed
MRI Head: Report Reviewed and Image Reviewed
Carotid Ultrasound: Report Reviewed
Labs: Report Reviewed
Lipid Profile: Report Reviewed
HgbA1C: Report Reviewed
Reviewed with: Physician and Patient
NIH Stroke Score
Subsequent NIH Scale
Date of Subsequent NIH Scale: 06/10/23
Time of Subsequent NIH Scale: 10:00
NIH Stroke Score
Level of Consciousness: 0 - Alert
LOC Questions: 1-Answers one correctly
LOC Commands: 0-Performs both correctly
Best Horizontal Gaze: 0-Normal
Visual Love: 1=Partial hemianopia (challenging to assess, appears to have R decreased vision but this may be neglect.)
Facial Palsy: 0=Normal, symmetrical
Motor - Right Arm: 0=No drift 10 seconds
Motor - Left Arm: 0=No drift 10 seconds
Motor - Right Le-No drift 5 seconds
Motor - Left Le-No drift 5 seconds
Limb Ataxia: 0-Absent
Sensation: 0-Normal
Best Language: 2-Severe aphasia
Dysarthria: 0-Normal
Extinction and Inattention: 1-Sensory inattention
Total Score:: 5
Modified [place] (mRS) Score
Modified [place] Scale (mRS): Moderate disability. Requires some help, able to walk unassisted.
Score: 3
Medications
-
Active Medications
Generic Name Dose Route Start Last Admin
Trade Name Freq PRN Reason Stop Dose Admin
Acetaminophen 650 mg 06/08/23 20:49
Acetaminophen 650 Mg Rectal Suppository RECTAL 07/06/23 20:48
Q4HPRN PRN
CARDOSO, mild pain, or temp >100.4F
Acetaminophen 650 mg 06/08/23 20:49
Acetaminophen 325 Mg Tablet PO 07/06/23 20:48
Q4HPRN PRN
CARDOSO, mild pain, or temp >100.4F
Aspirin 81 mg 06/10/23 09:00
Aspirin 81 Mg Chewable Tablet PO 07/08/23 08:59
DAILY ALEX
Atorvastatin Calcium 40 mg 06/08/23 20:49 06/09/23 16:05
Atorvastatin (Lipitor) 40 Mg Tablet PO 07/06/23 20:48 40 mg
QPM ALEX Administration
Enoxaparin Sodium 40 mg 06/10/23 18:00
Enoxaparin Sodium 40 Mg/0.4 Ml Syringe SC 07/08/23 17:59
QPM ALEX
Hydralazine HCl 5 mg 06/08/23 20:49
Hydralazine 20 Mg/Ml Vial IV 07/06/23 20:48
Q6HPRN PRN
SBP>180 or DBP>120
Sodium Chloride 0 flush 06/08/23 21:00
Sodium Chloride 0.9% (Flush) Syringe IV 07/06/23 20:59
PER PROTOCOL ALEX
Home Medications
Medication Instructions Recorded
apixaban 5 mg tablet (Eliquis) 5 mg PO BID #60 tabs 07/21/22
furosemide 20 mg tablet (Lasix) 20 mg PO DAILY #30 tabs 07/21/22
atorvastatin 40 mg tablet 40 mg PO DAILY 06/08/23
finasteride 5 mg tablet 5 mg PO DAILY 06/08/23
lisinopril 20 mg tablet 20 mg PO DAILY 06/08/23
metoprolol succinate 100 mg 100 mg PO DAILY 06/08/23
tablet,extended release 24 hr
omeprazole 20 mg capsule,delayed 20 mg PO DAILY 06/08/23
release

Documented by User: Faith Caceres MD 06/10/23 12:41
Neuro Assessment/Plan
Assessment
This is an 83-year-old woman who presented to on June 08, 2023 with encephalopathy.� According to patient's nephew Mr. Porter was found confused when his family picked him up for family today.� Last time seen normal�unknown. Reportedly
his nephew could not find Eliquis among his medications. He was not a candidate for TNK/IAT due to unknown LNW time, on Eliquis with unknown last dose, and initial CT head already demonstrating a large infarct.
-CT head 06/08/23: Findings most likely representing a large evolving nonhemorrhagic infarct in the mid to posterior left MCA territory.
-MRI brain 06/08/23: LARGE ACUTE TRANSCORTICAL INFARCT in the LEFT PARIETAL and TEMPORAL LOBES containing acute petechial hemorrhage. SMALL ACUTE TRANSCORTICAL INFARCT in the lateral LEFT FRONTAL LOBE containing a small amount of hemorrhage. 5 mm
chronic lacunar infarct in the left putamen. Mild white matter leukoaraiosis in both cerebral hemispheres. Mild to moderate diffuse cerebral and cerebellar volume loss. 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
-Carotid ultrasound 06/09/23: No evidence of hemodynamically significant stenosis
-TTE 06/09/23: LA volume > 48 mL/m2.
I. Acute L MCA territory stroke. Likely etiology-embolic. Limited data regarding medication compliance prior the stroke at this time.
II.� A-fib
III.� Vascular encephalopathy
Plan
-Repeat CT head without contrast in 7 days prior to restarting Eliquis
-Continue aspirin 81 mg once a day
-BP goal normotension.
-Reduce Lipitor to 20mg QHS
-Continue speech therapy
-Please contact our Neurology service with any questions/concerns. Patient needs to follow-up with Neurology as an outpatient, may see the TIMBER POISONER or one of the physicians.
Modified Aleena Score (MRS)
-
Score: 3
NIH Stroke Score
NIH Stroke Score
Total Score:: 5
Modified [place] (mRS) Score
Score: 3
--- NOTE | 2023-06-10 08:51 | W.PN.HOSP.TC ---
Today's Communication/Plan
-
Aspirin and statin. Rehab evaluation.
Assessment / Plan
Assessment / Plan
Physical exam:
General: Acutely ill
HEENT: Normocephalic, Atraumatic and Moist Mucous Membranes
Respiratory: Clear to Auscultation; Negative Wheezes, Rales or Rhonchi
Cardiac: Irregular rate and rhythm and S1/S2
GI: Soft, Nontender and Nondistended
Musculoskeletal: No Clubbing, No Cyanosis and No Edema
Neuro: Awake, Alert and Disoriented, significant expressive and receptive aphasia, mild weakness on the right side.� He perseverates in conversation.
Psych: Calm, limited judgment and insight.
A/P:
Impression:
Acute CVA
Toxic metabolic encephalopathy likely due to vascular injury
Bradycardia
Leukocytosis, reactive versus infectious-likely reactive
Hypertension
A-fib
Anemia
Hyponatremia
Mild rhabdomyolysis
Mild hyperbilirubinemia
Conditions prior to presentation:
Hypertension
Hyperlipidemia
Atrial fibrillation
CAD
MRI of the brain:
IMPRESSION:
1. � LARGE ACUTE TRANSCORTICAL INFARCT in the LEFT PARIETAL and TEMPORAL LOBES containing acute petechial hemorrhage.
2. � SMALL ACUTE TRANSCORTICAL INFARCT in the lateral LEFT FRONTAL LOBE containing a small amount of hemorrhage.
3. � 5 mm chronic lacunar infarct in the left putamen.
4. � Mild white matter leukoaraiosis in both cerebral hemispheres.
5. � Mild to moderate diffuse cerebral and cerebellar volume loss.
6. 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
PLAN:
Cardiology consulted--> continue off beta-blockers and planning to restart in the next 24 to 48 hours. Will need outpatient cardiac follow-up for mitral valve.
He needs tighter blood pressure control now so we will continue to monitor and adjust medications accordingly.
Not a candidate to thrombolysis due to due to out of time window from symptoms onset and unknown timeframe use of anticoagulants.
Continue aspirin, will do 81 mg p.o. daily
Hold off Eliquis until neurology clears him to restart in the setting of large stroke--> possible restart within 7 days.
Stop IV fluids
Continue statin, atorvastatin 40 mg p.o. nightly
Check lipid profile and LDL 33
MRI of the brain--> large stroke as described above
Ultrasound of carotids--> no significant stenosis
Rehab consulted on 06/08
Transthoracic echocardiogram--> EF 54%, mitral valve repair with mean gradient 12 mmHg, mild aortic and mild to moderate tricuspid regurgitation, trace mitral regurgitation, and pulmonary artery pressure of 60 mmHg.
Permissive hypertension -->IV hydralazine only as needed for extreme levels of blood pressure
Check hemoglobin A1c in a.m.--> 5.8
UA unremarkable for infection
Obtained a chest x-ray and no signs of infection either
Obtained blood cultures and no growth
Follow-up WBC and temperature curve--> WBC trending down and afebrile
Maintain euglycemia, normothermia
Follow-up NIH score
Neurology consult appreciated
PT OT eval
Speech therapy eval
SCDs and Lovenox 40 mg SQ
CODE STATUS DNR�
Anticipated Discharge: 24 - 48 hours
Subjective/Interval History
-
Date of Service: June 10, 2023
Patient still aphasic, he tells me he was able to participate with physical therapy today and I did corroborated history with RN. No chest pain or shortness of breath.
Objective Data
-
Labs:
Laboratory Results
06/10/23
06:35
WBC Pending
Hgb Pending
Hct Pending
Plt Count Pending
Sodium Pending
Potassium Pending
Chloride Pending
Carbon Dioxide Pending
BUN Pending
Creatinine Pending
Glucose Pending
Calcium Pending
Vital Signs:
Vital Signs
Temp Pulse Resp BP Pulse Ox
99.7 F 63 16 145/61 97
06/10/23 07:45 06/10/23 07:45 06/10/23 07:45 06/10/23 07:45 06/10/23 07:45
I&O
06/09/23 06/10/23 06/11/23
06:59 06:59 06:59
Intake Total 825 / 825 1350 / 1350
Output Total 500 / 500
Balance 325 / 325 1350 / 1350
Review of Systems
-
All other systems: Reviewed and negative
[2023-06-10] MEDS: LOW STRENGTH ASPIRIN 81 MG PO (09:25)
[2023-06-10 09:42] LABS: % Basophils 0.5 % (0-2); % Eosinophils 1.1 % (0-6); % Immature Granulocytes 0.3 % (0-0.5); % Lymphocytes 11.8 % (20.5-51.1); % Monocytes 11.4 % (1.7-9.3); % Neutrophils 74.9 % (42.2-75.2); Absolute Basophils 0.1 10^3/uL (0-0.2); Absolute Eosinophils 0.1 10^3/uL (0-0.7); Absolute Lymphocytes 1.4 10^3/uL (1.2-3.4); Absolute Monocytes 1.3 10^3/uL (0.1-0.6); Absolute Neutrophils 8.8 10^3/uL (1.4-6.5); Hematocrit 32.8 % (39.0-52.0); Hemoglobin 10.9 g/dL (13.0-18.0); Mean Corp Hgb Conc. 33.2 g/dL (33.0-37.0); Mean Corpuscular Hgb 29.2 pg (27.0-31.0); Mean Corpuscular Volume 87.9 fL (80.0-94.0); Mean Platelet Volume 12.3 fL (7.4-10.4); Nucleated Red Blood Cells % 0 % (-); Platelet Count 173 10^3/uL (130-400); Red Blood Cell Count 3.73 10^6/uL (4.70-6.10); Red Cell Dist. Width 13.4 % (11.5-14.5); White Blood Cell Count 11.8 10^3/uL (4.8-10.8)
[2023-06-10 10:13] LABS: Blood Urea Nitrogen 18 mg/dl (9-20); Calcium 8.3 mg/dl (8.4-10.2); Carbon Dioxide 22 mmol/L (22-30); Chloride 101 mmol/L (98-107); Estimated Creatinine Clearance 76 ml/min; Glucose 97 mg/dl (70-99); Potassium 3.6 mmol/L (3.5-5.1); Sodium 133 mmol/L (135-145); eGFR > 60.00
--- NOTE | 2023-06-10 11:14 | W.PN.CARDCBS ---
Addendum entered and electronically signed by Ankit Pan DO 06/10/23 17:18:
I saw and examined the patient.
The Senior Specialist's note was reviewed and I agree with the note.
Comment:
Reporting improvement in speech and strength; no cp, sob, palpitations, or syncope
GEN: No distress, awake, alert, oriented to self
HEENT: supple, anicteric, mmm, eomi
LUNGS: CTA B/L, no wheezes/rales
CV: Irreg, S1/S2, 2/6 murmur
ABD: soft, BS+, NT/ND
EXT: No cyanosis, clubbing, edema
NEURO: Gross non-focal
SKIN: Warm, pink, dry. No rash
A/P as below
Monitor of metoprolol; rate controlled AF
On ASA; resume Eliquis when OK by neurology
PT/OT/ST
As mentioned, OP eval of mitral valve
Original Note:
Today's Communication / Plan
-
Heart rate trends improving. Remains off outpatient Toprol. Hopeful to resume in next 24 to 48 hours
Continue aspirin. Holding on Eliquis for now with evidence of some hemorrhagic conversion by brain MRI. Resume Eliquis when okay per neurology
Continue PT/OT/ST
Will need outpatient follow-up of mitral valve
Impression / Plan
-
Primary Mds Manager:Dr. Dinh
Assessment:
Presentation with change in mental status
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
Persistent atrial fibrillation, now with slow vent response, pauses <2.5 seconds
Chronic eliquis OAC, concern for recent noncompliance
Chronic HFpEF
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
HTN
HLD
ECHO 09/2022: EF 54%, mild cLVH, RV dilated, mod dilated LA, s/p MV repair with mean gradient 12mmHg, trace MR, mild AR, mild to mod TR, PAP 60mmHg
ECHO 06/09/2023: EF 65 to 70%, mildly enlarged RV size, moderately dilated RA, status post MV repair with peak/mean gradients 37/18 mmHg, at least moderate MS, trace MR, mild AR, moderate TR, PAP 67 mmHg
Plan:
-Patient presents with change in mental status and confusion. found to have large L CVA by head CT. suspected eliquis noncompliance as nephew unable to find eliquis at home
-Brain MRI confirms large acute left parietal and temporal lobe strokes with acute petechial hemorrhage and small acute lateral left frontal lobe infarct with small amount of hemorrhage
-Patient appears much clearer today. 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
-Resume Eliquis 5 mg twice daily when okay per neurology. For now is on aspirin
-Heart rates appear to be improving overnight. His outpatient Toprol remains on hold at present, pending heart rate trends with plan to resume perhaps at lower dose in next 24 to 48 hours
-Echo with results as above. EF remains preserved with worsened mitral stenosis compared to prior. Discussed with patient at bedside 06/09
-continue PT/OT/ST
-LDL 33. continue statin
-DNR code status
Progress Note - Mds Manager
Subjective
Date of Service: June 10, 2023
Appears much improved from mental status standpoint today. Answering questions appropriately. No chest pain, shortness of breath, palpitations
Objective
Labs:
06/10/23 06:35
06/10/23 06:35
Labs
Hgb 10.9 g/dL (13.0-18.0) L 06/10/23 06:35
Hct 32.8 % (39.0-52.0) L 06/10/23 06:35
Plt Count 173 10^3/uL (130-400) D 06/10/23 06:35
Sodium 133 mmol/L (135-145) L 06/10/23 06:35
Potassium 3.6 mmol/L (3.5-5.1) 06/10/23 06:35
BUN 18 mg/dl (9-20) 06/10/23 06:35
Creatinine 0.7 mg/dL (0.7-1.3) 06/10/23 06:35
Glucose 97 mg/dl (70-99) 06/10/23 06:35
Vital Signs and I&O:
Vital Signs
Temp Pulse Resp BP Pulse Ox
99.7 F 63 16 145/61 97
06/10/23 07:45 06/10/23 07:45 06/10/23 07:45 06/10/23 07:45 06/10/23 07:45
Vital Signs
Temp Pulse Resp BP Pulse Ox
99.7 F 63 16 145/61 97
06/10/23 07:45 06/10/23 07:45 06/10/23 07:45 06/10/23 07:45 06/10/23 07:45
Intake & Output
06/08/23 06/09/23 06/10/23 06/11/23
07:59 07:59 07:59 07:59
Intake Total 825 / 825 1350 / 1350
Output Total 500 / 500
Balance 325 / 325 1350 / 1350
Physical Exam
Physical Exam
GEN: No distress, awake, alert, oriented to self
HEENT: supple, anicteric, mmm, eomi
LUNGS: CTA B/L, no wheezes/rales
CV: Irreg, S1/S2, 2/6 murmur
ABD: soft, BS+, NT/ND
EXT: No cyanosis, clubbing, edema
NEURO: Gross non-focal
SKIN: Warm, pink, dry. No rash
--- NOTE | 2023-06-10 14:38 | CM ---
Patient has been accepted at [facility], and bed is available on Tuesday, physician is aware.
Plan; [facility] acute rehab on Tuesday.
[2023-06-10] MEDS: LIPITOR 40 MG PO (17:32)
[2023-06-10] MEDS: LOVENOX 40 MG SC (17:32)
[2023-06-11 03:57] VITALS: BP 171/77
[2023-06-11 06:00] VITALS: BMI 27.9
[2023-06-11 07:00] VITALS: BP 183/80
[2023-06-11 07:08] LABS: % Basophils 0.6 % (0-2); % Immature Granulocytes 0.4 % (0-0.5); % Lymphocytes 10.4 % (20.5-51.1); % Neutrophils 75.6 % (42.2-75.2); Absolute Basophils 0.1 10^3/uL (0-0.2); Absolute Eosinophils 0.2 10^3/uL (0-0.7); Absolute Lymphocytes 1.1 10^3/uL (1.2-3.4); Absolute Monocytes 1.2 10^3/uL (0.1-0.6); Absolute Neutrophils 8.1 10^3/uL (1.4-6.5); Hematocrit 34.1 % (39.0-52.0); Hemoglobin 11.4 g/dL (13.0-18.0); Mean Corp Hgb Conc. 33.4 g/dL (33.0-37.0); Mean Corpuscular Volume 86.8 fL (80.0-94.0); Mean Platelet Volume 12.3 fL (7.4-10.4); Nucleated Red Blood Cells % 0 % (-); Platelet Count 163 10^3/uL (130-400); Red Blood Cell Count 3.93 10^6/uL (4.70-6.10); Red Cell Dist. Width 13.2 % (11.5-14.5); White Blood Cell Count 10.7 10^3/uL (4.8-10.8)
[2023-06-11 07:28] LABS: Blood Urea Nitrogen 16 mg/dl (9-20); Calcium 8.4 mg/dl (8.4-10.2); Carbon Dioxide 24 mmol/L (22-30); Chloride 99 mmol/L (98-107); Estimated Creatinine Clearance 76 ml/min; Glucose 105 mg/dl (70-99); Potassium 3.6 mmol/L (3.5-5.1); Sodium 132 mmol/L (135-145); eGFR > 60.00
[2023-06-11] MEDS: LOW STRENGTH ASPIRIN 81 MG PO (09:00)
[2023-06-11] MEDS: APRESOLINE 5 MG IV (09:00)
--- NOTE | 2023-06-11 11:13 | W.PN.HOSP.TC ---
Today's Communication/Plan
-
Awaiting acute rehab disposition
Cardiology following and Mace restart beta-blockade based on rate as BP trending up and needs tighter control
Apixaban can be resumed on or after 14 June per neurology
Mild hyponatremia will continue to be monitored not enough to titrate
Assessment / Plan
Assessment / Plan
Physical exam:
General: Acutely ill
HEENT: Normocephalic, Atraumatic and Moist Mucous Membranes
Respiratory: Clear to Auscultation; Negative Wheezes, Rales or Rhonchi
Cardiac: Irregular rate and rhythm and S1/S2
GI: Soft, Nontender and Nondistended
Musculoskeletal: No Clubbing, No Cyanosis and No Edema
Neuro: Awake, Alert and Disoriented, significant expressive and receptive aphasia, mild weakness on the right side.� He perseverates in conversation.
Psych: Calm, limited judgment and insight.
A/P:
Impression:
Acute CVA?MCA
Toxic metabolic encephalopathy likely due to vascular injury
Bradycardia
Leukocytosis, reactive versus infectious-likely reactive
Hypertension
A-fib
Anemia
Hyponatremia
Mild rhabdomyolysis
Mild hyperbilirubinemia
Conditions prior to presentation:
Hypertension
Hyperlipidemia
Atrial fibrillation
CAD
MRI of the brain:
IMPRESSION:
1. � LARGE ACUTE TRANSCORTICAL INFARCT in the LEFT PARIETAL and TEMPORAL LOBES containing acute petechial hemorrhage.
2. � SMALL ACUTE TRANSCORTICAL INFARCT in the lateral LEFT FRONTAL LOBE containing a small amount of hemorrhage.
3. � 5 mm chronic lacunar infarct in the left putamen.
4. � Mild white matter leukoaraiosis in both cerebral hemispheres.
5. � Mild to moderate diffuse cerebral and cerebellar volume loss.
6. 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
PLAN:
Cardiology consulted--> continue off beta-blockers and planning to restart in the next 24 to 48 hours. Will need outpatient cardiac follow-up for mitral valve.
He needs tighter blood pressure control now so we will continue to monitor and adjust medications accordingly. Hopefully beta-blockade will be added in the next 24 hours but defer to cardiology based on rate
Not a candidate to thrombolysis due to due to out of time window from symptoms onset and unknown timeframe use of anticoagulants.
Continue aspirin, will do 81 mg p.o. daily
Hold off Eliquis until neurology clears him to restart in the setting of large stroke--> possible restart 7 days from June 07 onset of symptom.
Stop IV fluids
Continue statin, atorvastatin 40 mg p.o. nightly
Check lipid profile and LDL 33
MRI of the brain--> large stroke as described above
Ultrasound of carotids--> no significant stenosis
Rehab consulted on 06/08
Transthoracic echocardiogram--> EF 54%, mitral valve repair with mean gradient 12 mmHg, mild aortic and mild to moderate tricuspid regurgitation, trace mitral regurgitation, and pulmonary artery pressure of 60 mmHg.
Permissive hypertension -->IV hydralazine only as needed for extreme levels of blood pressure
Check hemoglobin A1c in a.m.--> 5.8
UA unremarkable for infection
Obtained a chest x-ray and no signs of infection either
Obtained blood cultures and no growth
Follow-up WBC and temperature curve--> WBC trending down and afebrile
Maintain euglycemia, normothermia
Follow-up NIH score
Neurology consult appreciated
PT OT eval
Speech therapy eval
SCDs and Lovenox 40 mg SQ
CODE STATUS DNR�
Anticipated Discharge: Within 24 hours
Subjective/Interval History
-
Date of Service: June 11, 2023
Underlying expressive aphasia report repeatedly saying okay to all questions
Objective Data
-
Labs:
Laboratory Results
06/11/23
06:25
WBC 10.7
Hgb 11.4 L
Hct 34.1 L
Plt Count 163
Sodium 132 L
Potassium 3.6
Chloride 99
Carbon Dioxide 24
BUN 16
Creatinine 0.7
Glucose 105 H
Calcium 8.4
Vital Signs:
Vital Signs
Temp Pulse Resp BP Pulse Ox
98.3 F 58 20 183/80 95
06/11/23 07:00 06/11/23 07:00 06/11/23 07:00 06/11/23 09:00 06/11/23 07:00
I&O
06/10/23 06/11/23 06/12/23
06:59 06:59 06:59
Intake Total 1350 / 1350 480 / 480
Output Total 200 / 200
Balance 1350 / 1350 280 / 280
Review of Systems
-
Unable to obtain full review of systems at this time due to: Patient Non-verbal (Expressive aphasia and repetitively saying okay)
History Source: Patient
Respiratory: Reports No Symptoms
Cardiac: Reports No Symptoms
Abdomen/GI: Reports No Symptoms
Neuro: Reports Weakness and Ataxia
Physical Exam
-
General: No Apparent Distress
HEENT: Normocephalic
Respiratory: Clear to Auscultation
Cardiac: Irregular Rhythm
GI: Soft
Musculoskeletal: Other (Mild weakness to right side)
Neuro: Awake and Other (Expressive aphasia and receptive); Negative Oriented
Psych: Calm
Data Reviewed
-
Total Time Spent with Patient (in minutes): 56
Labs: Labs Reviewed by me
--- NOTE | 2023-06-11 13:33 | W.PN.CARDCBS ---
Today's Communication / Plan
-
Monitor off metoprolol, remains rate controlled AF
Resume ACEi if OK with neurology for normotensive goal
Resume Eliquis when OK from neuorology stand-point
PT/OT/ST
OP eval of mitral valve
Impression / Plan
-
Primary Otr Refrigerated Cdl Truck Driver:Dr. Dinh
Assessment:
Presentation with change in mental status
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
Persistent atrial fibrillation, now with slow vent response, pauses <2.5 seconds
Chronic eliquis OAC, concern for recent noncompliance
Chronic HFpEF
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
HTN
HLD
ECHO 09/2022: EF 54%, mild cLVH, RV dilated, mod dilated LA, s/p MV repair with mean gradient 12mmHg, trace MR, mild AR, mild to mod TR, PAP 60mmHg
ECHO 06/09/2023: EF 65 to 70%, mildly enlarged RV size, moderately dilated RA, status post MV repair with peak/mean gradients 37/18 mmHg, at least moderate MS, trace MR, mild AR, moderate TR, PAP 67 mmHg
Plan:
-Patient presents with change in mental status and confusion. found to have large L CVA by head CT. suspected eliquis noncompliance as nephew unable to find eliquis at home
-Brain MRI confirms large acute left parietal and temporal lobe strokes with acute petechial hemorrhage and small acute lateral left frontal lobe infarct with small amount of hemorrhage
-Patient appears much clearer today. 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
-Resume Eliquis 5 mg twice daily when okay per neurology. For now is on aspirin
-Heart rates appear to be improving overnight. His outpatient Toprol remains on hold at present, pending heart rate trends with plan to resume perhaps at lower dose in next 24 to 48 hours; HR remains on lower side; continue to hold for now. Please
resume home ACEi for BP control
-Echo with results as above. EF remains preserved with worsened mitral stenosis compared to prior. Discussed with patient at bedside 06/09
-continue PT/OT/ST
-LDL 33. continue statin
-DNR code status
Progress Note - Otr Refrigerated Cdl Truck Driver
Subjective
Date of Service: June 11, 2023
Patient seen and examined this morning. No acute events overnight. Patient resting comfortably in chair no complaints. AOx3. No cp, sob, palpitations, or weakness. Expressive aphasia continued; unchanged.
Objective
Labs:
06/11/23 06:25
06/11/23 06:25
Labs
Hgb 11.4 g/dL (13.0-18.0) L 06/11/23 06:25
Hct 34.1 % (39.0-52.0) L 06/11/23 06:25
Plt Count 163 10^3/uL (130-400) 06/11/23 06:25
Sodium 132 mmol/L (135-145) L 06/11/23 06:25
Potassium 3.6 mmol/L (3.5-5.1) 06/11/23 06:25
BUN 16 mg/dl (9-20) 06/11/23 06:25
Creatinine 0.7 mg/dL (0.7-1.3) 06/11/23 06:25
Glucose 105 mg/dl (70-99) H 06/11/23 06:25
Vital Signs and I&O:
Vital Signs
Temp Pulse Resp BP Pulse Ox
98.3 F 58 20 183/80 95
06/11/23 07:00 06/11/23 07:00 06/11/23 07:00 06/11/23 09:00 06/11/23 07:00
Vital Signs
Temp Pulse Resp BP Pulse Ox
98.3 F 58 20 183/80 95
06/11/23 07:00 06/11/23 07:00 06/11/23 07:00 06/11/23 09:00 06/11/23 07:00
Intake & Output
06/09/23 06/10/23 06/11/23 06/12/23
06:59 06:59 06:59 06:59
Intake Total 825 / 825 1350 / 1350 480 / 480
Output Total 500 / 500 200 / 200
Balance 325 / 325 1350 / 1350 280 / 280
Physical Exam
Physical Exam
GEN: No distress, awake, alert, oriented to self
HEENT: supple, anicteric, mmm, eomi
LUNGS: CTA B/L, no wheezes/rales
CV: Irreg, S1/S2, 2/6 murmur
ABD: soft, BS+, NT/ND
EXT: No cyanosis, clubbing, edema
NEURO: Gross non-focal
SKIN: Warm, pink, dry. No rash
[2023-06-11 15:00] VITALS: BP 182/71
[2023-06-11 15:24] VITALS: BP 184/79; BP 189/83
[2023-06-11] MEDS: LOVENOX 40 MG SC (17:37)
[2023-06-11] MEDS: LIPITOR 40 MG PO (17:37)
[2023-06-11 19:45] VITALS: BP 170/73
[2023-06-11 22:47] VITALS: BP 160/62
[2023-06-12] VITALS (7 sets, daily range): BP systolic 144–166; BP diastolic 62–83; PULSE 79; BMI 27.6
[2023-06-12 08:40] LABS: Blood Urea Nitrogen 14 mg/dl (9-20); Calcium 8.3 mg/dl (8.4-10.2); Carbon Dioxide 23 mmol/L (22-30); Chloride 101 mmol/L (98-107); Estimated Creatinine Clearance 76 ml/min; Glucose 100 mg/dl (70-99); Potassium 3.6 mmol/L (3.5-5.1); Sodium 131 mmol/L (135-145); eGFR > 60.00
[2023-06-12] MEDS: LOW STRENGTH ASPIRIN 81 MG PO (08:40)
--- NOTE | 2023-06-12 09:34 | W.PN.HOSP.TC ---
Today's Communication/Plan
-
Will add dose of lisinopril 10 mg had been on 20 mg prior
Addition of beta blockade as per cardiology
To resume Eliquis on 14 June per neurology
Assessment / Plan
Assessment / Plan
Physical exam:
General:
HEENT: Normocephalic, Atraumatic and Moist Mucous Membranes
Respiratory: Clear to Auscultation; Negative Wheezes, Rales or Rhonchi
Cardiac: Irregular rate and rhythm and S1/S2
GI: Soft, Nontender and Nondistended
Musculoskeletal: No Clubbing, No Cyanosis and No Edema
Neuro: Awake, Alert and Disoriented, significant expressive and receptive aphasia, mild weakness on the right side.� He perseverates in conversation.
Psych: Calm, limited judgment and insight.
A/P:
Impression:
Acute CVA?MCA
Toxic metabolic encephalopathy likely due to vascular injury
Bradycardia
Leukocytosis, reactive versus infectious-likely reactive
Hypertension
A-fib
Anemia
Hyponatremia
Mild rhabdomyolysis
Mild hyperbilirubinemia
Conditions prior to presentation:
Hypertension
Hyperlipidemia
Atrial fibrillation
CAD
MRI of the brain:
IMPRESSION:
1. � LARGE ACUTE TRANSCORTICAL INFARCT in the LEFT PARIETAL and TEMPORAL LOBES containing acute petechial hemorrhage.
2. � SMALL ACUTE TRANSCORTICAL INFARCT in the lateral LEFT FRONTAL LOBE containing a small amount of hemorrhage.
3. � 5 mm chronic lacunar infarct in the left putamen.
4. � Mild white matter leukoaraiosis in both cerebral hemispheres.
5. � Mild to moderate diffuse cerebral and cerebellar volume loss.
6. 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
PLAN:
Cardiology consulted--> continue off beta-blockers and planning to restart in the next 24 to 48 hours. Will need outpatient cardiac follow-up for mitral valve.
He needs tighter blood pressure control now so we will continue to monitor and adjust medications accordingly. Hopefully beta-blockade will be added in the next 24 hours but defer to cardiology based on rate
Not a candidate to thrombolysis due to due to out of time window from symptoms onset and unknown timeframe use of anticoagulants.
Continue aspirin, will do 81 mg p.o. daily
Hold off Eliquis until neurology clears him to restart in the setting of large stroke--> possible restart 7 days from June 07 onset of symptom.
Stop IV fluids
Continue statin, atorvastatin 40 mg p.o. nightly
Check lipid profile and LDL 33
MRI of the brain--> large stroke as described above
Ultrasound of carotids--> no significant stenosis
Rehab consulted on 06/08
Transthoracic echocardiogram--> EF 54%, mitral valve repair with mean gradient 12 mmHg, mild aortic and mild to moderate tricuspid regurgitation, trace mitral regurgitation, and pulmonary artery pressure of 60 mmHg.
Permissive hypertension -->IV hydralazine only as needed for extreme levels of blood pressure
Check hemoglobin A1c in a.m.--> 5.8
UA unremarkable for infection
Obtained a chest x-ray and no signs of infection either
Obtained blood cultures and no growth
Follow-up WBC and temperature curve--> WBC trending down and afebrile
Maintain euglycemia, normothermia
Follow-up NIH score
Neurology consult appreciated
PT OT eval
Speech therapy eval
SCDs and Lovenox 40 mg SQ
CODE STATUS DNR�
Anticipated Discharge: Within 24 hours
Subjective/Interval History
-
Date of Service: June 12, 2023
No new complaints sitting in chair woke him from sleep ongoing expressive aphasia
Objective Data
-
Labs:
Laboratory Results
06/12/23
06:15
Sodium 131 L
Potassium 3.6
Chloride 101
Carbon Dioxide 23
BUN 14
Creatinine 0.7
Glucose 100 H
Calcium 8.3 L
Vital Signs:
Vital Signs
Temp Pulse Resp BP Pulse Ox
99.1 F 62 20 166/74 95
06/12/23 08:12 06/12/23 08:12 06/12/23 08:12 06/12/23 08:12 06/12/23 08:12
I&O
06/11/23 06/12/23 06/13/23
06:59 06:59 06:59
Intake Total 480 / 480 960 / 960
Output Total 200 / 200 250 / 250
Balance 280 / 280 710 / 710
Review of Systems
-
Unable to obtain full review of systems at this time due to: Patient Non-verbal and Other (Expressive and receptive aphasia)
History Source: Patient
Respiratory: Reports No Symptoms
Cardiac: Reports No Symptoms
Physical Exam
-
General: Appears Chronically Ill
HEENT: Normocephalic
Respiratory: Clear to Auscultation
Cardiac: Regular Rhythm
GI: Soft and Nontender
Neuro: Awake and Nonfocal/Grossly Intact (Right side weak); Negative Oriented or No Motor Deficits
Psych: Calm
Data Reviewed
-
Total Time Spent with Patient (in minutes): 56
Labs: Labs Reviewed by me (Sodium 131)
[2023-06-12] MEDS: ZESTRIL 10 MG PO (11:55)
--- NOTE | 2023-06-12 13:13 | W.PN.CARDCBS ---
Today's Communication / Plan
-
Increase ACEi as tolerated for normotension
Resume eliquis when able per neuro
Hold BB; given relative bradycardia with AF CVR; would discontinue
Stable from CV standpoint
Impression / Plan
-
Primary Leaf Sucker Operator:Dr. Dinh
Assessment:
Presentation with change in mental status
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
Persistent atrial fibrillation, now with slow vent response, pauses <2.5 seconds
Chronic eliquis OAC, concern for recent noncompliance
Chronic HFpEF
History of mitral valve repair and CABGx1 WALKER to LAD 2002 at [facility]
HTN
HLD
ECHO 09/2022: EF 54%, mild cLVH, RV dilated, mod dilated LA, s/p MV repair with mean gradient 12mmHg, trace MR, mild AR, mild to mod TR, PAP 60mmHg
ECHO 06/09/2023: EF 65 to 70%, mildly enlarged RV size, moderately dilated RA, status post MV repair with peak/mean gradients 37/18 mmHg, at least moderate MS, trace MR, mild AR, moderate TR, PAP 67 mmHg
Plan:
-Patient presents with change in mental status and confusion. found to have large L CVA by head CT. suspected eliquis noncompliance as nephew unable to find eliquis at home
-Brain MRI confirms large acute left parietal and temporal lobe strokes with acute petechial hemorrhage and small acute lateral left frontal lobe infarct with small amount of hemorrhage
-Patient appears much clearer today. 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
-Resume Eliquis 5 mg twice daily when okay per neurology. For now is on aspirin
-Heart rates appear to be improving overnight. His outpatient Toprol remains on hold at present, pending heart rate trends with plan to resume perhaps at lower dose in next 24 to 48 hours; HR remains on lower side; continue to hold for now. Please
resume home ACEi for BP control; DC beta-nikolay given continued AF CVR and relative bradycardia
-Echo with results as above. EF remains preserved with worsened mitral stenosis compared to prior. Discussed with patient at bedside 06/09
-continue PT/OT/ST
-LDL 33. continue statin
-DNR code status
-Stable from CV standpoint, no further recommendations, will sign off. Please call with questions.
Progress Note - Leaf Sucker Operator
Subjective
Date of Service: June 12, 2023
Patient seen and examined. No acute events overnight. Patient resting comfortably in chair. No complaints. Tele AF, rate controlled.
Objective
Labs:
06/11/23 06:25
06/12/23 06:15
Labs
Hgb 11.4 g/dL (13.0-18.0) L 06/11/23 06:25
Hct 34.1 % (39.0-52.0) L 06/11/23 06:25
Plt Count 163 10^3/uL (130-400) 06/11/23 06:25
Sodium 131 mmol/L (135-145) L 06/12/23 06:15
Potassium 3.6 mmol/L (3.5-5.1) 06/12/23 06:15
BUN 14 mg/dl (9-20) 06/12/23 06:15
Creatinine 0.7 mg/dL (0.7-1.3) 06/12/23 06:15
Glucose 100 mg/dl (70-99) H 06/12/23 06:15
Vital Signs and I&O:
Vital Signs
Temp Pulse Resp BP Pulse Ox
98.1 F 66 16 147/62 96
06/12/23 12:06 06/12/23 12:06 06/12/23 12:06 06/12/23 12:06 06/12/23 12:06
Vital Signs
Temp Pulse Resp BP Pulse Ox
98.1 F 66 16 147/62 96
06/12/23 12:06 06/12/23 12:06 06/12/23 12:06 06/12/23 12:06 06/12/23 12:06
Intake & Output
06/10/23 06/11/23 06/12/23 06/13/23
06:59 06:59 06:59 06:59
Intake Total 1350 / 1350 480 / 480 960 / 960
Output Total 200 / 200 250 / 250
Balance 1350 / 1350 280 / 280 710 / 710
Physical Exam
Physical Exam
GEN: No distress, awake, alert oriented x3
HEENT: supple, anicteric, mmm, eomi
LUNGS: CTA B/L, no wheezes/rales
CV: Irreg, S1/S2, 2/6 murmur
ABD: soft, BS+, NT/ND
EXT: No cyanosis, clubbing, edema
NEURO: Gross non-focal; expressive aphasia still present
SKIN: Warm, pink, dry. No rash
--- NOTE | 2023-06-12 15:48 | CM ---
Plan: [facility] Tuesday
[2023-06-12] MEDS: LOVENOX 40 MG SC (16:48)
[2023-06-12] MEDS: LIPITOR 40 MG PO (16:49)
[2023-06-13] VITALS (7 sets, daily range): BP systolic 106–165; BP diastolic 58–88; BMI 27.4
--- NOTE | 2023-06-13 08:00 | W.PN.HOSP.TC ---
Today's Communication/Plan
-
Continue current management. Discharge planning in progress.
Assessment / Plan
Assessment / Plan
Physical exam:
General:
HEENT: Normocephalic, Atraumatic and Moist Mucous Membranes
Respiratory: Clear to Auscultation; Negative Wheezes, Rales or Rhonchi
Cardiac: Irregular rate and rhythm and S1/S2
GI: Soft, Nontender and Nondistended
Musculoskeletal: No Clubbing, No Cyanosis and No Edema
Neuro: Awake, Alert and Disoriented, significant expressive and receptive aphasia, mild weakness on the right side.� He perseverates in conversation.
Psych: Calm, limited judgment and insight.
A/P:
Impression:
Acute CVA?MCA
Toxic metabolic encephalopathy likely due to vascular injury
Bradycardia
Leukocytosis, reactive versus infectious-likely reactive
Hypertension
A-fib
Anemia
Hyponatremia
Mild rhabdomyolysis
Mild hyperbilirubinemia
Conditions prior to presentation:
Hypertension
Hyperlipidemia
Atrial fibrillation
CAD
MRI of the brain:
IMPRESSION:
1. � LARGE ACUTE TRANSCORTICAL INFARCT in the LEFT PARIETAL and TEMPORAL LOBES containing acute petechial hemorrhage.
2. � SMALL ACUTE TRANSCORTICAL INFARCT in the lateral LEFT FRONTAL LOBE containing a small amount of hemorrhage.
3. � 5 mm chronic lacunar infarct in the left putamen.
4. � Mild white matter leukoaraiosis in both cerebral hemispheres.
5. � Mild to moderate diffuse cerebral and cerebellar volume loss.
6. 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
PLAN:
On lisinopril 10 mg p.o. daily
On aspirin and statin
Cardiology consult appreciated
Not a candidate to thrombolysis due to due to out of time window from symptoms onset and unknown timeframe use of anticoagulants.
Hold off Eliquis until neurology clears him to restart in the setting of large stroke--> possible restart 7 days from June 07 onset of symptom.
MRI of the brain--> large stroke as described above
Ultrasound of carotids--> no significant stenosis
Rehab consulted on 06/08
Transthoracic echocardiogram--> EF 54%, mitral valve repair with mean gradient 12 mmHg, mild aortic and mild to moderate tricuspid regurgitation, trace mitral regurgitation, and pulmonary artery pressure of 60 mmHg.
Permissive hypertension -->IV hydralazine only as needed for extreme levels of blood pressure
Check hemoglobin A1c in a.m.--> 5.8
UA unremarkable for infection
Obtained a chest x-ray and no signs of infection either
Obtained blood cultures and no growth
Follow-up WBC and temperature curve--> WBC trending down and afebrile
Maintain euglycemia, normothermia
Follow-up NIH score
Neurology consult appreciated
PT OT eval
Speech therapy eval
SCDs and Lovenox 40 mg SQ
CODE STATUS DNR�
Anticipated Discharge: Within 24 hours
Subjective/Interval History
-
Date of Service: June 13, 2023
Patient remains with aphasia. Mild right hand pain due to IV site, now improved. No chest pain or shortness of breath
Objective Data
-
Vital Signs:
Vital Signs
Temp Pulse Resp BP Pulse Ox
98.0 F 59 16 165/78 96
06/13/23 07:46 06/13/23 07:46 06/13/23 07:46 06/13/23 07:46 06/13/23 07:46
I&O
06/12/23 06/13/23 06/14/23
06:59 06:59 06:59
Intake Total 960 / 960 600 / 600
Output Total 250 / 250
Balance 710 / 710 600 / 600
Review of Systems
-
All other systems: Reviewed and negative
[2023-06-13] MEDS: ZESTRIL 10 MG PO (08:44)
[2023-06-13] MEDS: LOW STRENGTH ASPIRIN 81 MG PO (08:44)
--- NOTE | 2023-06-13 09:04 | CON.MD ---
Documented by User: Tiffanie Lopez PA-C 06/13/23 17:18
Consultation - Medical
-
Referring Provider: [place]
Chief Complaint: CVA
History of Present Illness: This is a 83 year old male with PMH of (Chronic HFpEF, History of mitral valve repair and CABGx1 to 2002 at [facility]) who presented to [facility] on June 08, 2023 with change in mental status and
confusion. found to have large L CVA by head CT. suspected Eliquis noncompliance as nephew unable to find eliquis at home-Brain MRI confirms large acute left parietal and temporal lobe strokes with acute petechial hemorrhage and small acute lateral
left frontal lobe infarct with small amount of hemorrhage. He was not a candidate for TNK/IAT due to unknown LNW time, on Eliquis with unknown last dosePatient with Moderate to severe expressive and receptive aphasia. deferred systemic
anticoagulation due to size of the stroke
ECHO 09/2022: EF 54%, mild cLVH, RV dilated, mod dilated LA, s/p MV repair with mean gradient 12mmHg, trace MR, mild AR, mild to mod TR, PAP 60mmHg
ECHO 06/09/2023: EF 65 to 70%, mildly enlarged RV size, moderately dilated RA, status post MV repair with peak/mean gradients 37/18 mmHg, at least moderate MS, trace MR, mild AR, moderate TR, PAP 67 mmHg
-TTE 06/09/23: Normal left ventricular chamber size. Hyperdynamic left ventricular systolic function. Mild concentric left ventricular hypertrophy. Left ventricular ejection fraction is 65-70% by volumetric assessment. Mildly enlarged right
ventricular size. Normal right ventricular systolic function. Indexed LA volume is severely abnormal (> 48 mL/m2).�Moderately dilated right atrium.
Past Medical History: HTN,(Chronic HFpEF, History of mitral valve repair and CABGx1 to 2002 at [facility], A-Fib, CAD, HTN, CHF, DLP, GERD, BPH, polio?
Procedure History: CABG, MVR, bilateral cataract surgery
Family History: �Unknown
Social History:
Functional Level Premorbidly: Independent with all activities
Functional Level Currently: Transfers- min Assist, ambulated 40 feet x 2 with min Assist for balance, right sided neglect, lateral lean. Moderately impaired receptive language skills, moderate-severe expressive word finding
Tobacco: Denies
Alcohol: Denies
Drug use: Denies
Lives with: Alone in [facility]
24-hour assistance available:
Number of floors: 1 story
# steps to enter:
# steps to second floor:
Potential First floor set up:yes
Driving: yes
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
�
Allergies:
Allergy/AdvReac Type Severity Reaction Status Date / Time
cefaclor Allergy Unknown Verified 07/21/22 11:15
Cephalosporins Allergy Unknown Verified 07/21/22 11:15
Penicillins Allergy Unknown Verified 07/21/22 11:15
Review of Systems:
Constitutional: (x) Normal _
Eye: (x) Normal _
Ear/Nose/Throat: (x) Normal _
Respiratory: (x) Normal _
Cardiovascular: (x) bradycardia, htn
Gastrointestinal: (x) Normal _
Genitourinary: (x) Normal _
Musculoskeletal: (x) Normal _
Integumentary: (x) Normal _
Neurologic: (x) CVA, aphasia-expressive, receptive
Psychiatric: (x) Normal _
Endocrine: (x) Normal _
Hematologic/Lymphatic: (x) Normal _
Allergic/Immunologic: (x) Normal _
Medications:
Active Current Visit Medication List
Category Date Time Status
Acetaminophen [Tylenol/Feverall] Med 06/08/23 20:49 Active
650 mg RECTAL Q4HPRN PRN
Acetaminophen [Tylenol] Med 06/08/23 20:49 Active
650 mg PO Q4HPRN PRN
Aspirin Chewable [Low Strength Aspirin] Med 06/10/23 09:00 Active
81 mg PO DAILY
Atorvastatin [Lipitor] Med 06/08/23 20:49 Active
40 mg PO QPM
Enoxaparin Sodium [Lovenox] Med 06/10/23 18:00 Active
40 mg SC QPM
Flush (0.9% Sodium Chloride) [Flush (Nss)] Med 06/08/23 21:00 Active
See Dose Instructions IV PER PROTOCOL
HydrALAZINE [Apresoline] Med 06/08/23 20:49 Active
5 mg IV Q6HPRN PRN
Lisinopril [Zestril] Med 06/12/23 10:00 Active
10 mg PO DAILY
Vitals:
Temp Pulse Resp BP Pulse Ox
98.0 F 54 16 144/64 96
06/13/23 11:11 06/13/23 11:11 06/13/23 11:11 06/13/23 11:11 06/13/23 11:11
Height 5 ft 8 in
Actual Weight 81.76 kg
Body Mass Index (BMI) 27.4
Physical Exam:
General Appearance/Observation: Well-developed, well-nourished individual in no apparent distress.
Pain/Comfort Assessment: Denies
Mood/Affect: disoriented
Integumentary/Operative Site:
�� Pressure Ulcer Evaluation: absent over heels.
�
�� Other Type of Wound: absent, excoriations on legs
Eyes: Conjunctiva/Lids: normal ��� Pupils: pupils equal round and reactive to light and Accommodation
Ears/Nose/Throat: oral mucosa moist,� throat clear.������������ Lips/Teeth/Gums: normal
Neck: No muscle spasm or tenderness
Cardiovascular: Heart: regular, murmur
Pulses: dorsalis pedis 2+ bilaterally
Respiratory: Respiratory Effort/Chest Expansion: normal ������ Auscultation: Clear to auscultation bilaterally
Gastrointestinal: abdomen not tender, no distension, normal abdominal bowel sounds
Genitourinary: No Fleming
Extremities: Edema: None Cyanosis: None Trophic changes: None
Neurology Exam:
Orientation: Alert, Oriented to self, Place. Not time
Memory: Impaired for immediate medical concerns
Higher cortical function
Repetition:impaired, due to moderate receptive and expressive aphasia
Comprehension: Impaired. Needs repetition
Two step command: impaired, inattention, needs repeating
Naming: impaired
Cranial Nerves:
�� CNII: Pupillary light reflex: Intact��� Visual Field:
�� CN III, IV, : Extraocular muscles: grossly Intact.Patient with difficulty not moving head with eyes
�� CN V: Facial Sensation at Forehead: Intact, Maxilla: Intact, Mandible: Intact
�� CN VII: Facial movement: Symmetric
�� CN VIII: Hearing: Normal
�� CN IX/X: Speech & swallow: expressive and receptive aphasia Position of Uvula: Midline
�� CN XI: Shoulder shrug: Symmetric
�� CN XII: Tongue protrusion: Midline
Sensory:
�� Light touch: Intact in bilateral upper and lower extremities
��
Reflexes:
�� Biceps: 1+ bilaterally
�� Brachioradialis: 1+ bilaterally
�� Triceps: 1+ bilaterally
�� Patellar: 1+ bilaterally
�� Achilles:absent bilaterally
�� Babinski: Down going bilaterally
�� Clonus: None
�� Josue: Negative bilaterally
Cerebellar: Dysmetria/Ataxia: patient not able to follow command and do
Musculoskeletal:
Motor: (Manual muscle scale 0-5)
Muscle SA EF WE EE FF FA HF KE DF EHL PF
Right� - 4 - 4 - - 4 4 4 4 4
Left - - - 5 5 5 4 4 5 5 5
Intermittently follows instructions and commands for motor assessment. Requested at times multiple times without follow through.
Tone: Normal in all extremities
Range of Motion: Passively within normal limits in all extremities
Lab Results
Labs
WBC 10.7 10^3/uL (4.8-10.8) 06/11/23 06:25
RBC 3.93 10^6/uL (4.70-6.10) L 06/11/23:25
Hgb 11.4 g/dL (13.0-18.0) L 06/11/23:25
Hct 34.1 % (39.0-52.0) L 06/11/23:25
MCV 86.8 fL (80.0-94.0) 06/11/23:
MCH 29.0 pg (27.0-31.0) 06/11/23:25
MCHC 33.4 g/dL (33.0-37.0) 06/11/23 06:25
RDW 13.2 % (11.5-14.5) 06/11/23:25
Plt Count 163 10^3/uL (130-400) 06/11/23:25
MPV 12.3 fL (7.4-10.4) H 06/11/23:25
Abs Immat Gran (auto) 0.0 10^3/uL (0-0.05) 06/11/23:
Absolute Neuts (auto) 8.1 10^3/uL (1.4-6.5) H 06/11/23:25
Absolute Lymphs (auto) 1.1 10^3/uL (1.2-3.4) L 06/11/23:25
Absolute Monos (auto) 1.2 10^3/uL (0.1-0.6) H 06/11/23:25
Absolute Eos (auto) 0.2 10^3/uL (0-0.7) 06/11/23:25
Absolute Basos (auto) 0.1 10^3/uL (0-0.2) 06/11/23:25
Immature Gran % 0.4 % (0-0.5) 06/11/23:25
Neutrophils % 75.6 % (42.2-75.2) H 06/11/23:25
Lymphocytes % 10.4 % (20.5-51.1) L 03/23/24 06:25
Monocytes % 11.0 % (1.7-9.3) H 06/11/23 06:25
Eosinophils % 2.0 % (0-6) 06/11/23 06:25
Basophils % 0.6 % (0-2) 06/11/23 06:25
Nucleated RBC % 0 % (-) 06/11/23 06:25
Sodium 131 mmol/L (135-145) L 06/12/23 06:15
Potassium 3.6 mmol/L (3.5-5.1) 06/12/23 06:15
Chloride 101 mmol/L (98-107) 06/12/23 06:15
Carbon Dioxide 23 mmol/L (22-30) 06/12/23 06:15
BUN 14 mg/dl (9-20) 06/12/23 06:15
Creatinine 0.7 mg/dL (0.7-1.3) 06/12/23 06:15
Estimated Creat Clear 76 ml/min 06/12/23 06:15
eGFR > 60.00 06/12/23 06:15
Glucose 100 mg/dl (70-99) H 06/12/23 06:15
Hemoglobin A1c 5.8 % (4.0-5.6) H 06/09/23 06:34
Calcium 8.3 mg/dl (8.4-10.2) L 06/12/23 06:15
Magnesium 1.9 mg/dl (1.6-2.3) 06/08/23 15:22
Total Bilirubin 1.5 mg/dl (0.2-1.3) H 06/08/23 15:22
AST 50 U/L (17-59) 06/08/23 15:22
ALT 24 U/L (0-50) 06/08/23 15:22
Alkaline Phosphatase 73 U/L (38-126) 06/08/23 15:22
Creatine Kinase 440 U/L (55-170) H D 06/09/23 06:34
Total Protein 6.8 g/dl (6.3-8.2) 06/08/23 15:22
Albumin 4.2 g/dl (3.5-5.0) 06/08/23 15:22
Triglycerides 128 mg/dl (10-149) 06/09/23 06:34
Total Cholesterol 86 mg/dl (50-199) 06/09/23 06:34
LDL Cholesterol, Calc 33 mg/dl 06/09/23 06:34
VLDL Cholesterol, Calc 25 mg/dl (0-30) 06/09/23 06:34
HDL Cholesterol 28 mg/dl 06/09/23 06:34
TSH (Reflex) 2.32 uIU/ml (0.47-4.68) 06/08/23 13:33
Urine Color Yellow 06/08/23 15:22
Urine Clarity Clear (Clear) 06/08/23 15:22
Urine pH 5.0 (5.0-9.0) 06/08/23 15:22
Ur Specific [place] 1.020 (<1.030) 06/08/23 15:22
Urine Ketones 1+ (Negative) A 06/08/23 15:22
Ur Occult Blood Reflex Negative (Negative) 06/08/23 15:22
Urine Nitrite (Reflex) Negative (Negative) 06/08/23 15:22
Urine Bilirubin 1+ (Negative) A 06/08/23 15:22
Urine Urobilinogen Negative (Neg - 1+) 06/08/23 15:22
Leukocyte Esterase Rfl Trace (Negative) A 06/08/23 15:22
Urine RBC 0-2 /HPF (0-2) 06/08/23 15:22
Urine WBC (Reflex) 3-5 /HPF (0-5) 06/08/23 15:22
Urine Glucose Negative (Negative) 06/08/23 15:22
Urine Albumin (Reflex) Trace (Neg - Trace) 06/08/23 15:22
SARS-CoV-2 Antigen Negative (Negative) 06/08/23 13:33
�
Diagnostic Results: as per HPI
Assessment This is a 83 year old male with PMH of (Chronic HFpEF, History of mitral valve repair and CABGx1 WALKER to LAD 2002 at [facility]) who presented to [facility] on June 08, 2023 with change in mental status and confusion.
found to have large L CVA by head CT. suspected Eliquis noncompliance as nephew unable to find eliquis at home-Brain MRI confirms large acute left parietal and temporal lobe strokes with acute petechial hemorrhage and small acute lateral left
frontal lobe infarct with small amount of hemorrhage. He was not a candidate for TNK/IAT due to unknown LNW time, on Eliquis with unknown last dosePatient with Moderate to severe expressive and receptive aphasia. deferred systemic anticoagulation
due to size of the stroke
Plan
PT/OT to increase independence with ADLs, improve balance, coordination, endurance, strength, mobility, community reintegration, decreased burden of care on others and family education.
CVA: Secondary prophylaxis with aspirin 81mg, statin, and blood pressure control (SBP less than 180 and diastolic less than 100 to participate with therapy for ischemic stroke). Hold Eliquis for at least 7 days from symptom onset due to large size
of stroke. Continue aspirin 81mg daily for now, once Eliquis is resumed discontinue aspirin.
right nondominant hemiparesis: High risk for falls and sliding out of chair/bed. Safety reinforced.
- Avoid using affected arm to help lift or pull patient as this will cause trauma to the shoulder.
Right Neglect: makes patient at increased risk for falls.� Will need therapy to work on scanning of environment for safe navigation.
Bradycardia:Hold BB; given relative bradycardia with AF CVR
Dysphagia: speech evaluation, oral care protocol, c aspiration precautions.� Advance diet as tolerated.
Aphasia: speech evaluation. Expressive and receptive impairment . Cont speech therapy
CAD: h/o CABG
HTN: Lisinopril 10mg qd. Beta nikolay on hold due to bradycardia. May resume at lower dose when appropriate. Hydralazine IV 5mg q 6 prn
HLD:Atorvastatin 40mg
Atrial fibrillation:� On asa, Eliquis on hold. May resume when able by neurology. Beta nikolay on hold.�������������������������������������
Anemia: Likely multifactorial.� Continue to monitor. Hgb 11.4
Skin: Prevention of heels pressure injury- recommend multi podus boots while in bed
Psych: Psychology consult.� Monitor mood, adjust medications as needed.
Skin: monitor for pressure sores/rashes/lesions.
Pain: acetaminophen as needed.
Bowel: Colace and Senna, PRN bisacodyl.
Bladder: Time void, PVRs, PRN straight cath.
GI Prophylaxis: Pantoprazole
DVT Prophylaxis: mechanical and lovenox SC
Pulmonary: Incentive spirometry
Safety: Continue to reinforce assistance with all transfers.
Code Status:�DNR
Dispo (date/plan/equipment needs): Home with family care.� Social history reviewed.
Functional and Medical Goals: Modified Independent with ADL�s, ambulation, transfers
Summary of recommendations:
- Discharge Destination: Patient would benefit from Acute Inpatient Rehabilitation for PT/OT to increase independence with ADLs, improve balance, coordination, endurance, strength, mobility,based on his current function of bed mobility of
supervision, transfer-min Assist, ambulates 60 feet with rolling walker and minimal assistance with right sided neglect, visual perception-impaired, grooming, lower extremity care- min Assist, toilet transfer- min Assist.
CVA: Secondary prophylaxis with aspirin 81mg, statin, and blood pressure control (SBP less than 180 and diastolic less than 100 to participate with therapy for ischemic stroke). Hold Eliquis for at least 7 days from symptom onset due to large size
of stroke. Continue aspirin 81mg daily for now, once Eliquis is resumed discontinue aspirin.
right nondominant hemiparesis: High risk for falls and sliding out of chair/bed. Safety reinforced.
- Avoid using affected arm to help lift or pull patient as this will cause trauma to the shoulder.
Right Neglect: makes patient at increased risk for falls.� Will need therapy to work on scanning of environment for safe navigation.
Skin: Prevention of heel pressure injury- recommend multi podus boots while in bed. Patient with dry skin at bottom of feet that are starting to crack.
Bradycardia:Hold BB; given relative bradycardia with AF CVR
Atrial fibrillation:� On asa, Eliquis on hold. May resume when able by neurology. Beta nikolay on hold.�����
Dysphagia: speech evaluation, oral care protocol, c aspiration precautions.� Advance diet as tolerated.
Aphasia: speech evaluation. Expressive and receptive impairment . Cont speech therapy
HTN: Lisinopril 10mg qd. Beta nikolay on hold due to bradycardia. May resume at lower dose when appropriate. Hydralazine IV 5mg q 6 prn
Bowel: Colace and Senna, PRN bisacodyl.
Bladder: Time void, PVRs, PRN straight cath.
DVT Prophylaxis: mechanical and lovenox SC
Pulmonary: Incentive spirometry
Safety: Continue to reinforce assistance with all transfers.
Thank you for allowing me to care for your patient. Please contact

Documented by User: Ascencion Donald MD 06/13/23 20:20
Consultation - Medical
-
Referring Provider: [place]
Chief Complaint: CVA
History of Present Illness: This is a 83 year old male with PMH of (Chronic HFpEF, History of mitral valve repair and CABGx1 WALKER to LAD 2002 at [facility]) who presented to [facility] on June 08, 2023 with change in mental status and
confusion. found to have large L CVA by head CT. suspected Eliquis noncompliance as nephew unable to find eliquis at home-Brain MRI confirms large acute left parietal and temporal lobe strokes with acute petechial hemorrhage and small acute lateral
left frontal lobe infarct with small amount of hemorrhage. He was not a candidate for TNK/IAT due to unknown LNW time, on Eliquis with unknown last dosePatient with Moderate to severe expressive and receptive aphasia. deferred systemic
anticoagulation due to size of the stroke
ECHO 09/2022: EF 54%, mild cLVH, RV dilated, mod dilated LA, s/p MV repair with mean gradient 12mmHg, trace MR, mild AR, mild to mod TR, PAP 60mmHg
ECHO 06/09/2023: EF 65 to 70%, mildly enlarged RV size, moderately dilated RA, status post MV repair with peak/mean gradients 37/18 mmHg, at least moderate MS, trace MR, mild AR, moderate TR, PAP 67 mmHg
-TTE 06/09/23: Normal left ventricular chamber size. Hyperdynamic left ventricular systolic function. Mild concentric left ventricular hypertrophy. Left ventricular ejection fraction is 65-70% by volumetric assessment. Mildly enlarged right
ventricular size. Normal right ventricular systolic function. Indexed LA volume is severely abnormal (> 48 mL/m2).�Moderately dilated right atrium.
Past Medical History: HTN,(Chronic HFpEF, History of mitral valve repair and CABGx1 WALKER to LAD 2002 at [facility], A-Fib, CAD, HTN, CHF, DLP, GERD, BPH, polio?
Procedure History: CABG, MVR, bilateral cataract surgery
Family History: �Unknown
Social History:
Functional Level Premorbidly: Independent with all activities
Functional Level Currently: Transfers- min Assist, ambulated 40 feet x 2 with min Assist for balance, right sided neglect, lateral lean. Moderately impaired receptive language skills, moderate-severe expressive word finding
Tobacco: Denies
Alcohol: Denies
Drug use: Denies
Lives with: Alone in [facility]
24-hour assistance available:
Number of floors: 1 story
# steps to enter:
# steps to second floor:
Potential First floor set up:yes
Driving: yes
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
�
Allergies:
Allergy/AdvReac Type Severity Reaction Status Date / Time
cefaclor Allergy Unknown Verified 07/21/22 11:15
Cephalosporins Allergy Unknown Verified 07/21/22 11:15
Penicillins Allergy Unknown Verified 07/21/22 11:15
Review of Systems:
Constitutional: (x) Normal _
Eye: (x) Normal _
Ear/Nose/Throat: (x) Normal _
Respiratory: (x) Normal _
Cardiovascular: (x) bradycardia, htn
Gastrointestinal: (x) Normal _
Genitourinary: (x) Normal _
Musculoskeletal: (x) Normal _
Integumentary: (x) Normal _
Neurologic: (x) CVA, aphasia-expressive, receptive
Psychiatric: (x) Normal _
Endocrine: (x) Normal _
Hematologic/Lymphatic: (x) Normal _
Allergic/Immunologic: (x) Normal _
Medications:
Active Current Visit Medication List
Category Date Time Status
Acetaminophen [Tylenol/Feverall] Med 06/08/23 20:49 Active
650 mg RECTAL Q4HPRN PRN
Acetaminophen [Tylenol] Med 06/08/23 20:49 Active
650 mg PO Q4HPRN PRN
Aspirin Chewable [Low Strength Aspirin] Med 06/10/23 09:00 Active
81 mg PO DAILY
Atorvastatin [Lipitor] Med 06/08/23 20:49 Active
40 mg PO QPM
Enoxaparin Sodium [Lovenox] Med 06/10/23 18:00 Active
40 mg SC QPM
Flush (0.9% Sodium Chloride) [Flush (Nss)] Med 06/08/23 21:00 Active
See Dose Instructions IV PER PROTOCOL
HydrALAZINE [Apresoline] Med 06/08/23 20:49 Active
5 mg IV Q6HPRN PRN
Lisinopril [Zestril] Med 06/12/23 10:00 Active
10 mg PO DAILY
Vitals:
Temp Pulse Resp BP Pulse Ox
98.0 F 54 16 144/64 96
06/13/23 11:11 06/13/23 11:11 06/13/23 11:11 06/13/23 11:11 06/13/23 11:11
Height 5 ft 8 in
Actual Weight 81.76 kg
Body Mass Index (BMI) 27.4
Physical Exam:
General Appearance/Observation: Well-developed, well-nourished individual in no apparent distress.
Pain/Comfort Assessment: Denies
Mood/Affect: disoriented
Integumentary/Operative Site:
�� Pressure Ulcer Evaluation: absent over heels.
�
�� Other Type of Wound: absent, excoriations on legs
Eyes: Conjunctiva/Lids: normal ��� Pupils: pupils equal round and reactive to light and Accommodation
Ears/Nose/Throat: oral mucosa moist,� throat clear.������������ Lips/Teeth/Gums: normal
Neck: No muscle spasm or tenderness
Cardiovascular: Heart: regular, murmur
Pulses: dorsalis pedis 2+ bilaterally
Respiratory: Respiratory Effort/Chest Expansion: normal ������ Auscultation: Clear to auscultation bilaterally
Gastrointestinal: abdomen not tender, no distension, normal abdominal bowel sounds
Genitourinary: No Fleming
Extremities: Edema: None Cyanosis: None Trophic changes: None
Neurology Exam:
Orientation: Alert, Oriented to self, Place. Not time
Memory: Impaired for immediate medical concerns
Higher cortical function
Repetition:impaired, due to moderate receptive and expressive aphasia
Comprehension: Impaired. Needs repetition
Two step command: impaired, inattention, needs repeating
Naming: impaired
Cranial Nerves:
�� CNII: Pupillary light reflex: Intact��� Visual Field:
�� CN III, IV, : Extraocular muscles: grossly Intact.Patient with difficulty not moving head with eyes
�� CN V: Facial Sensation at Forehead: Intact, Maxilla: Intact, Mandible: Intact
�� CN VII: Facial movement: Symmetric
�� CN VIII: Hearing: Normal
�� CN IX/X: Speech & swallow: expressive and receptive aphasia Position of Uvula: Midline
�� CN XI: Shoulder shrug: Symmetric
�� CN XII: Tongue protrusion: Midline
Sensory:
�� Light touch: Intact in bilateral upper and lower extremities
��
Reflexes:
�� Biceps: 1+ bilaterally
�� Brachioradialis: 1+ bilaterally
�� Triceps: 1+ bilaterally
�� Patellar: 1+ bilaterally
�� Achilles:absent bilaterally
�� Babinski: Down going bilaterally
�� Clonus: None
�� Josue: Negative bilaterally
Cerebellar: Dysmetria/Ataxia: patient with some difficulty following commands
Musculoskeletal:
Motor: (Manual muscle scale 0-5)
Muscle SA EF WE EE FF FA HF KE DF EHL PF
Right� - 4 - 4 - - 4 4 4 4 4
Left - - - 5 5 5 4 4 5 5 5
Intermittently follows instructions and commands for motor assessment. Requested at times multiple times without follow through.
Tone: Normal in all extremities
Range of Motion: Passively within normal limits in all extremities
Lab Results
Labs
WBC 10.7 10^3/uL (4.8-10.8) 06/11/23 06:25
RBC 3.93 10^6/uL (4.70-6.10) L 06/11/23 06:25
Hgb 11.4 g/dL (13.0-18.0) L 06/11/23 06:25
Hct 34.1 % (39.0-52.0) L 06/11/23 06:25
MCV 86.8 fL (80.0-94.0) 06/11/23 06:25
MCH 29.0 pg (27.0-31.0) 06/11/23 06:25
MCHC 33.4 g/dL (33.0-37.0) 06/11/23 06:25
RDW 13.2 % (11.5-14.5) 06/11/23 06:25
Plt Count 163 10^3/uL (130-400) 06/11/23 06:25
MPV 12.3 fL (7.4-10.4) H 06/11/23 06:25
Abs Immat Gran (auto) 0.0 10^3/uL (0-0.05) 06/11/23 06:25
Absolute Neuts (auto) 8.1 10^3/uL (1.4-6.5) H 06/11/23 06:25
Absolute Lymphs (auto) 1.1 10^3/uL (1.2-3.4) L 06/11/23 06:25
Absolute Monos (auto) 1.2 10^3/uL (0.1-0.6) H 06/11/23 06:25
Absolute Eos (auto) 0.2 10^3/uL (0-0.7) 06/11/23 06:25
Absolute Basos (auto) 0.1 10^3/uL (0-0.2) 06/11/23 06:25
Immature Gran % 0.4 % (0-0.5) 06/11/23 06:25
Neutrophils % 75.6 % (42.2-75.2) H 06/11/23 06:25
Lymphocytes % 10.4 % (20.5-51.1) L 06/11/23 06:25
Monocytes % 11.0 % (1.7-9.3) H 06/11/23 06:25
Eosinophils % 2.0 % (0-6) 06/11/23 06:25
Basophils % 0.6 % (0-2) 06/11/23 06:25
Nucleated RBC % 0 % (-) 06/11/23 06:25
Sodium 131 mmol/L (135-145) L 06/12/23 06:15
Potassium 3.6 mmol/L (3.5-5.1) 06/12/23 06:15
Chloride 101 mmol/L (98-107) 06/12/23 06:15
Carbon Dioxide 23 mmol/L (22-30) 06/12/23 06:15
BUN 14 mg/dl (9-20) 06/12/23 06:15
Creatinine 0.7 mg/dL (0.7-1.3) 06/12/23 06:15
Estimated Creat Clear 76 ml/min 06/12/23 06:15
eGFR > 60.00 06/12/23 06:15
Glucose 100 mg/dl (70-99) H 06/12/23 06:15
Hemoglobin A1c 5.8 % (4.0-5.6) H 06/09/23 06:34
Calcium 8.3 mg/dl (8.4-10.2) L 06/12/23 06:15
Magnesium 1.9 mg/dl (1.6-2.3) 06/08/23 15:22
Total Bilirubin 1.5 mg/dl (0.2-1.3) H 06/08/23 15:22
AST 50 U/L (17-59) 06/08/23 15:22
ALT 24 U/L (0-50) 06/08/23 15:22
Alkaline Phosphatase 73 U/L (38-126) 06/08/23 15:22
Creatine Kinase 440 U/L (55-170) H D 06/09/23 06:34
Total Protein 6.8 g/dl (6.3-8.2) 06/08/23 15:22
Albumin 4.2 g/dl (3.5-5.0) 06/08/23 15:22
Triglycerides 128 mg/dl (10-149) 06/09/23 06:34
Total Cholesterol 86 mg/dl (50-199) 06/09/23 06:34
LDL Cholesterol, Calc 33 mg/dl 06/09/23 06:34
VLDL Cholesterol, Calc 25 mg/dl (0-30) 06/09/23 06:34
HDL Cholesterol 28 mg/dl 06/09/23 06:34
TSH (Reflex) 2.32 uIU/ml (0.47-4.68) 06/08/23 13:33
Urine Color Yellow 06/08/23 15:22
Urine Clarity Clear (Clear) 06/08/23 15:22
Urine pH 5.0 (5.0-9.0) 06/08/23 15:22
Ur Specific [place] 1.020 (<1.030) 06/08/23 15:22
Urine Ketones 1+ (Negative) A 06/08/23 15:22
Ur Occult Blood Reflex Negative (Negative) 06/08/23 15:22
Urine Nitrite (Reflex) Negative (Negative) 06/08/23 15:
Urine Bilirubin 1+ (Negative) A 06/08/23 15:22
Urine Urobilinogen Negative (Neg - 1+) 06/08/23 15:22
Leukocyte Esterase Rfl Trace (Negative) A 06/08/23 15:
Urine RBC 0-2 /HPF (0-2) 06/08/23 15:22
Urine WBC (Reflex) 3-5 /HPF (0-5) 06/08/23 15:22
Urine Glucose Negative (Negative) 06/08/23 15:
Urine Albumin (Reflex) Trace (Neg - Trace) 06/08/23 15:22
SARS-CoV-2 Antigen Negative (Negative) 06/08/23 13:33
�
Diagnostic Results: as per HPI
Assessment This is a 83 year old male with PMH of (Chronic HFpEF, History of mitral valve repair and CABGx1 WALKER to LAD 2002 at [facility]) who presented to [facility] on June 08, 2023 with change in mental status and confusion.
found to have large L CVA by head CT. suspected Eliquis noncompliance as nephew unable to find eliquis at home-Brain MRI confirms large acute left parietal and temporal lobe strokes with acute petechial hemorrhage and small acute lateral left
frontal lobe infarct with small amount of hemorrhage. He was not a candidate for TNK/IAT due to unknown LNW time, on Eliquis with unknown last dosePatient with Moderate to severe expressive and receptive aphasia. deferred systemic anticoagulation
due to size of the stroke
Plan
PT/OT to increase independence with ADLs, improve balance, coordination, endurance, strength, mobility, community reintegration, decreased burden of care on others and family education.
CVA: Secondary prophylaxis with aspirin 81mg, statin, and blood pressure control (SBP less than 180 and diastolic less than 100 to participate with therapy for ischemic stroke). Hold Eliquis for at least 7 days from symptom onset due to large size
of stroke. Continue aspirin 81mg daily for now, once Eliquis is resumed discontinue aspirin.
right nondominant hemiparesis: High risk for falls and sliding out of chair/bed. Safety reinforced.
- Avoid using affected arm to help lift or pull patient as this will cause trauma to the shoulder.
Right Neglect: Could be mild right inattention - makes patient at increased risk for falls.� Will need therapy to work on scanning of environment for safe navigation.
Bradycardia:Hold BB; given relative bradycardia with AF CVR
Dysphagia: speech evaluation, oral care protocol, c aspiration precautions.� Advance diet as tolerated.
Aphasia: speech evaluation. Expressive and receptive impairment . Cont speech therapy
CAD: h/o CABG
HTN: Lisinopril 10mg qd. Beta nikolay on hold due to bradycardia. May resume at lower dose when appropriate. Hydralazine IV 5mg q 6 prn
HLD:Atorvastatin 40mg
Atrial fibrillation:� On asa, Eliquis on hold. May resume when able by neurology. Beta nikolay on hold.�������������������������������������
Anemia: Likely multifactorial.� Continue to monitor. Hgb 11.4
Skin: Prevention of heels pressure injury- recommend multi podus boots while in bed
Psych: Psychology consult.� Monitor mood, adjust medications as needed.
Skin: monitor for pressure sores/rashes/lesions.
Pain: acetaminophen as needed.
Bowel: Colace and Senna, PRN bisacodyl.
Bladder: Time void, PVRs, PRN straight cath.
GI Prophylaxis: Pantoprazole
DVT Prophylaxis: mechanical and lovenox SC
Pulmonary: Incentive spirometry
Safety: Continue to reinforce assistance with all transfers.
Code Status:�DNR
Dispo (date/plan/equipment needs):Acute rehab before discharge home with family care.� Social history reviewed.
Functional and Medical Goals: Modified Independent with ADL�s, ambulation, transfers
Summary of recommendations:
- Discharge Destination: Patient would benefit from Acute Inpatient Rehabilitation for PT/OT/Speech therapy to increase independence with ADLs, improve balance, coordination, endurance, strength, mobility,based on his current function of bed
mobility of supervision, transfer-min Assist, ambulates 60 feet with rolling walker and minimal assistance with right sided neglect, visual perception-impaired, grooming, lower extremity care- min Assist, toilet transfer- min Assist.
CVA: Secondary prophylaxis with aspirin 81mg, statin, and blood pressure control (SBP less than 180 and diastolic less than 100 to participate with therapy for ischemic stroke). Hold Eliquis for at least 7 days from symptom onset due to large size
of stroke. Continue aspirin 81mg daily for now, once Eliquis is resumed discontinue aspirin.
right nondominant hemiparesis: High risk for falls and sliding out of chair/bed. Safety reinforced.
- Avoid using affected arm to help lift or pull patient as this will cause trauma to the shoulder.
Right Neglect: makes patient at increased risk for falls.� Will need therapy to work on scanning of environment for safe navigation.
Skin: Prevention of heel pressure injury- recommend multi podus boots while in bed. Patient with dry skin at bottom of feet that are starting to crack.
Bradycardia:Hold BB; given relative bradycardia with AF CVR
Atrial fibrillation:� On asa, Eliquis on hold. May resume when able by neurology. Beta nikolay on hold.�����
Dysphagia: speech evaluation, oral care protocol, c aspiration precautions.� Advance diet as tolerated.
Aphasia: speech evaluation. Expressive and receptive impairment . Cont speech therapy
HTN: Lisinopril 10mg qd. Beta nikolay on hold due to bradycardia. May resume at lower dose when appropriate. Hydralazine IV 5mg q 6 prn
Bowel: Colace and Senna, PRN bisacodyl.
Bladder: Time void, PVRs, PRN straight cath.
DVT Prophylaxis: mechanical and lovenox SC
Pulmonary: Incentive spirometry
Safety: Continue to reinforce assistance with all transfers.
Thank you for allowing me to care for your patient. Please contact with further questions or concerns.
Patient was seen and examined by me this afternoon. Discussed with Tiffanie Lopez PA-C and agree with above note, exam and plan as outlined. Patient with some global aphasia, and possibly with some concomitant mild confusion/encephalopathy, but
some participation limitations today seems more due to aphasia. Needs intensive inpatient rehabilitation with multiple therapy specialties with PT, OT, Speech therapy to allow for optimal improvement of current impairments. Needs close
cardiovascular monitoring with some bradycardia, HTN, and may need to resume Eliquis when appropriate.
[2023-06-13] MEDS: TYLENOL 650 MG PO (12:41)
--- NOTE | 2023-06-13 12:56 | PTCARENOTE ---
Addendum entered by Dejah Chandler RN 06/13/23 13:36:
Pt states relief from the Tylenol given and IV site change. Will continue to monitor.
Original Note:
Pt began yelling out, 'my hand, my hand, ouch, it hurts, help me, someone help me!' Pt assessed and nothing noted to be on pt's hand. Pt has some aphasia but was able to say the pain was not radiating up his RT arm and that it looked to be where his
IV site was. IV flushed and IVT notified that site should be changed. Tylenol 650mg po given for pain and Dr. Hull made aware and will assess pt. Pt has (+) CMS to RT fingers and moving arm without difficulty. Ice pack applied as well.
--- NOTE | 2023-06-13 14:54 | CM ---
Addendum entered by Katia Roy 06/13/23 16:48:
PCP: [facility].
Original Note:
PM&R to evaluate patient today and plan is for acute rehab at [place] at [facility].
Plan; [place] rehab at [facility] pending evaluation from PM&R.
[2023-06-13] MEDS: LOVENOX 40 MG SC (17:11)
[2023-06-13] MEDS: LIPITOR 40 MG PO (17:11)
[2023-06-14 03:26] VITALS: BP 146/64
[2023-06-14 06:00] VITALS: BMI 27.9
[2023-06-14 07:05] VITALS: BP 159/60
[2023-06-14] MEDS: ZESTRIL 10 MG PO ×2 (08:24→10:40)
[2023-06-14] MEDS: LOW STRENGTH ASPIRIN 81 MG PO (08:24)
[2023-06-14 08:59] LABS: Hematocrit 36.7 % (39.0-52.0); Hemoglobin 12.3 g/dL (13.0-18.0); Mean Corp Hgb Conc. 33.5 g/dL (33.0-37.0); Mean Corpuscular Hgb 28.6 pg (27.0-31.0); Mean Corpuscular Volume 85.3 fL (80.0-94.0); Mean Platelet Volume 11.9 fL (7.4-10.4); Platelet Count 214 10^3/uL (130-400); Red Cell Dist. Width 13.2 % (11.5-14.5)
[2023-06-14 09:19] LABS: Blood Urea Nitrogen 14 mg/dl (9-20); Calcium 8.7 mg/dl (8.4-10.2); Carbon Dioxide 22 mmol/L (22-30); Chloride 102 mmol/L (98-107); Estimated Creatinine Clearance 89 ml/min; Glucose 115 mg/dl (70-99); Potassium 3.8 mmol/L (3.5-5.1); Sodium 132 mmol/L (135-145); eGFR > 60.00
--- NOTE | 2023-06-14 09:36 | W.PN.HOSP.TC ---
Today's Communication/Plan
-
Discharge planning today.
Assessment / Plan
Assessment / Plan
Physical exam:
General:
HEENT: Normocephalic, Atraumatic and Moist Mucous Membranes
Respiratory: Clear to Auscultation; Negative Wheezes, Rales or Rhonchi
Cardiac: Irregular rate and rhythm and S1/S2
GI: Soft, Nontender and Nondistended
Musculoskeletal: No Clubbing, No Cyanosis and No Edema
Neuro: Awake, Alert and Disoriented, significant expressive and receptive aphasia, mild weakness on the right side.� He perseverates in conversation.
Psych: Calm, limited judgment and insight.
A/P:
Impression:
Acute CVA?MCA
Toxic metabolic encephalopathy likely due to vascular injury
Bradycardia
Leukocytosis, reactive versus infectious-likely reactive
Hypertension
A-fib
Anemia
Hyponatremia
Mild rhabdomyolysis
Mild hyperbilirubinemia
Conditions prior to presentation:
Hypertension
Hyperlipidemia
Atrial fibrillation
CAD
MRI of the brain:
IMPRESSION:
1. � LARGE ACUTE TRANSCORTICAL INFARCT in the LEFT PARIETAL and TEMPORAL LOBES containing acute petechial hemorrhage.
2. � SMALL ACUTE TRANSCORTICAL INFARCT in the lateral LEFT FRONTAL LOBE containing a small amount of hemorrhage.
3. � 5 mm chronic lacunar infarct in the left putamen.
4. � Mild white matter leukoaraiosis in both cerebral hemispheres.
5. � Mild to moderate diffuse cerebral and cerebellar volume loss.
6. 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
PLAN:
On lisinopril 10 mg p.o. daily--> increase to 10 mg daily
On aspirin and statin--> plan to continue aspirin for 3 more days and then exchange for Eliquis
Cardiology consult appreciated
Not a candidate to thrombolysis due to due to out of time window from symptoms onset and unknown timeframe use of anticoagulants.
Hold off Eliquis until neurology clears him to restart in the setting of large stroke--> possible restart 7 days from June 07 onset of symptom.
MRI of the brain--> large stroke as described above
Ultrasound of carotids--> no significant stenosis
Rehab consulted on 06/08
Transthoracic echocardiogram--> EF 54%, mitral valve repair with mean gradient 12 mmHg, mild aortic and mild to moderate tricuspid regurgitation, trace mitral regurgitation, and pulmonary artery pressure of 60 mmHg.
Permissive hypertension -->IV hydralazine only as needed for extreme levels of blood pressure
Check hemoglobin A1c in a.m.--> 5.8
UA unremarkable for infection
Obtained a chest x-ray and no signs of infection either
Obtained blood cultures and no growth
Follow-up WBC and temperature curve--> WBC trending down and afebrile
Maintain euglycemia, normothermia
Follow-up NIH score
Neurology consult appreciated
PT OT eval
Speech therapy eval
SCDs and Lovenox 40 mg SQ
CODE STATUS DNR�
Anticipated Discharge: Today
Subjective/Interval History
-
Date of Service: June 14, 2023
Patient seen and examined. No new complaints
Objective Data
-
Labs:
Laboratory Results
06/14/23 06/14/23
06:52 08:36
WBC Cancelled 10.0
Hgb Cancelled 12.3 L
Hct Cancelled 36.7 L
Plt Count Cancelled 214 D
Sodium Cancelled 132 L
Potassium Cancelled 3.8
Chloride Cancelled 102
Carbon Dioxide Cancelled 22
BUN Cancelled 14
Creatinine Cancelled 0.6 L
Glucose Cancelled 115 H
Calcium Cancelled 8.7
Vital Signs:
Vital Signs
Temp Pulse Resp BP Pulse Ox
98.2 F 52 16 159/60 95
06/14/23 07:05 06/14/23 07:05 06/14/23 07:05 06/14/23 08:24 06/14/23 07:05
I&O
06/13/23 06/14/23 06/15/23
06:59 06:59 06:59
Intake Total 600 / 600 1500 / 1500
Balance 600 / 600 1500 / 1500
--- NOTE | 2023-06-14 10:17 | CM ---
Addendum entered by Katia Roy 06/14/23 12:12:
Letter of Medical Certification completed and placed on chart, copy provided to nephew ELDON Jean-Baptiste paperwork placed on patient's chart.
Original Note:
Patient has been accepted at [facility] today, patient's nephew Jose and his Kina are aware, they are requesting a Medical Certification letter in order for patient's nephew to proceed with POA for patient, Kina patient's nephew's spouse
to provide document for review.
Plan; Patient to transfer to [facility] today.
Report [facility] [id number]
[2023-06-14 11:55] VITALS: BP 155/81
--- NOTE | 2023-06-14 12:22 | W.DCSUMMARY ---
Discharge Summary
Discharge Data
Date of Admission: 06/08/23
Date of Discharge: 06/14/23
-
Pending Results: No
Hospital Course
Patient 83 years old male with history of CHF, mitral valve repair CAD, presented to the hospital attention mental status and aphasia. Patient was found to have large left CVA. Neurology consulted. He was on Eliquis prior to presentation and this
was on hold as per neurology recommendations. Eliquis can be restarted within the next few days (7 days from presentation) and aspirin at the time can be discontinued. Patient also was noted to be bradycardic and his beta-nikolay had to be
discontinued. Cardiology consulted. He was placed on MERISSA inhibitor and this has been uptitrated for blood pressure control. Transthoracic echocardiogram unremarkable except for chronic findings. Patient participated with PT OT and speech therapy
and recommended acute rehab. He has been accepted to acute rehab and further rehabilitation will take place. No other events were noticed. He will be discharged with stable condition today.
Discharge duration: 35 minutes
Discharge Plan
-
Patient Disposition: Acute Rehab Facility
Discharge Diagnosis/Procedures: Acute stroke. Toxic metabolic encephalopathy. Bradycardia. Atrial fibrillation. Anemia. Hyponatremia. Rhabdomyolysis. Hypertension.
Diet: Low Cholesterol
Activity: As tolerated
Blood Work: Please PCP to order CBC, BMP within 1 week
Other Services: PT and OT
Referrals:
Primary care, provider [Other] (See less than 1 week)
Keke Reed PA-C [Specified Professional Personl] - 07/18/23 12:40 pm (You have a cardiology follow-up appointment at the [facility] office with Dr. Dinh's physician executive assistant to general counsel, Keke. Please call with questions)
Faith Caceres MD [Active] - in two to four weeks
Prescriptions:
New
aspirin [Children's Aspirin] 81 mg Tablet,Chewable
81 mg PO DAILY 3 Days Qty: 3 0RF
Rx Instructions:
For 3 days
Continued
furosemide [Lasix] 20 mg tablet
20 mg PO DAILY Qty: 30 0RF
atorvastatin 40 mg Tablet
40 mg PO DAILY
lisinopril 20 mg Tablet
20 mg PO DAILY
metoprolol succinate 100 mg Tablet Extended Release 24 Hr
100 mg PO DAILY
omeprazole 20 mg Capsule,Delayed Release(Dr/Ec)
20 mg PO DAILY
finasteride 5 mg Tablet
5 mg PO DAILY
Held
Eliquis 5 mg tablet
5 mg PO BID Qty: 60 0RF
Hold Instructions: Resume on 06/16/23.
Rx Instructions:
Resume on 06/16/2023
Discharge Orders:
Discharge Patient (As Directed); Ordered 06/14/23
Ordered By: Alo Hull
Discharge Date and Time
Discharge Date/Time: 06/14/23 14:15
Print Language: PERSIAN
== END 2023-06-14 14:15 | DRG 64 ==
LOC: 4 WEST ACU 16:50
PROVIDERS: Emergency Medicine; Internal Medicine; ADMITTING PHYSICIAN Hospitalist; CONSULT PHYSICIAN Internal Medicine Cardiovascular Disease; CONSULT PHYSICIAN Psychiatry & Neurology Neurology; EMERGENCY PHYSICIAN Emergency Medicine; OTHER PHYSICIAN Physical Medicine & Rehabilitation
DX: I63.9 Cerebral infarction, unspecified (principal); G92.8 Other toxic encephalopathy; I50.32 Chronic diastolic (congestive) heart failure; I48.21 Permanent atrial fibrillation; E87.1 Hypo-osmolality and hyponatremia; M62.82 Rhabdomyolysis; R47.01 Aphasia; I11.0 Hypertensive heart disease with heart failure; I25.10 Atherosclerotic heart disease of native coronary artery without angina pectoris; K21.9 Gastro-esophageal reflux disease without esophagitis; I07.1 Rheumatic tricuspid insufficiency; K44.9 Diaphragmatic hernia without obstruction or gangrene; E80.6 Other disorders of bilirubin metabolism; Z66 Do not resuscitate; N40.0 Benign prostatic hyperplasia without lower urinary tract symptoms; E78.5 Hyperlipidemia, unspecified; D72.829 Elevated white blood cell count, unspecified; D64.9 Anemia, unspecified; Z95.1 Presence of aortocoronary bypass graft; Z88.1 Allergy status to other antibiotic agents; Z88.0 Allergy status to penicillin; Z79.01 Long term (current) use of anticoagulants; Z11.52 Encounter for screening for COVID-19; Z91.199 Patient's noncompliance with other medical treatment and regimen due to unspecified reason
CPT/HCPCS: 70450; 70544; 70551; 71045; 80048; 80053; 80061; 81003; 81015; 82550; 83036; 83735; 84443; 85025; 85027; 87040; 87811; 92507; 92523; 92526; 92610; 93005; 93306; 93880; 97110; 97116; 97163; 97167; 97530; 97535; 99285

== ENCOUNTER 2023-06-23 19:23 | Inpatient (IN) | payer MEDICARE, BC, SELFPAY ==
[2023-06-23] VITALS (12 sets, daily range): BP systolic 94–140; BP diastolic 40–74; BMI 28.8
[2023-06-23 11:56] LABS: % Basophils 0.8 % (0-2); % Eosinophils 1.7 % (0-6); % Immature Granulocytes 1.2 % (0-0.5); % Lymphocytes 6.5 % (20.5-51.1); % Monocytes 8.2 % (1.7-9.3); % Neutrophils 81.6 % (42.2-75.2); Absolute Basophils 0.2 10^3/uL (0-0.2); Absolute Eosinophils 0.3 10^3/uL (0-0.7); Absolute Immature Granulocytes 0.2 10^3/uL (0-0.05); Absolute Lymphocytes 1.3 10^3/uL (1.2-3.4); Absolute Monocytes 1.6 10^3/uL (0.1-0.6); Absolute Neutrophils 15.7 10^3/uL (1.4-6.5); Hematocrit 34.6 % (39.0-52.0); Hemoglobin 11.4 g/dL (13.0-18.0); Mean Corp Hgb Conc. 32.9 g/dL (33.0-37.0); Mean Corpuscular Hgb 28.1 pg (27.0-31.0); Mean Corpuscular Volume 85.4 fL (80.0-94.0); Nucleated Red Blood Cells % 0 % (-); Platelet Count 445 10^3/uL (130-400); Red Blood Cell Count 4.05 10^6/uL (4.70-6.10); Red Cell Dist. Width 13.7 % (11.5-14.5); White Blood Cell Count 19.2 10^3/uL (4.8-10.8)
[2023-06-23 12:05] LABS: ALT (SGPT) 55 U/L (0-50); AST (SGOT) 48 U/L (17-59); Albumin 3.3 g/dl (3.5-5.0); Alkaline Phosphatase 99 U/L (38-126); Blood Urea Nitrogen 25 mg/dl (9-20); Carbon Dioxide 28 mmol/L (22-30); Chloride 93 mmol/L (98-107); Glucose 136 mg/dl (70-99); Lipase 91 U/L (23-300); Potassium 3.9 mmol/L (3.5-5.1); Sodium 128 mmol/L (135-145); Total Bilirubin 0.8 mg/dl (0.2-1.3); Total Protein 6.6 g/dl (6.3-8.2); eGFR > 60.00
[2023-06-23 12:16] LABS: Troponin I < 0.012 ng/ml
[2023-06-23] MEDS: ZOFRAN 4 MG IV (14:26)
--- NOTE | 2023-06-23 17:37 | ED.GENMED ---
History of Present Illness
<Roshan Javed Jr., PA-C - Last Filed: 06/23/23 18:31>
General
Chief Complaint: Abdominal Symptoms
Source: patient and physician
Exam Limitations: none
Time Seen by Provider: 06/23/23 12:47
Nursing documentation reviewed up to this point in time: agreed with
Travel History
Have you had any contact with someone who has COVID-19?: No
Do you have any symptoms of coronavirus? Fever > 100 degrees, chills, cough, shortness of breath, sore throat, loss of taste or smell, muscle aches, or headache?: No
History of Present Illness
History of Present Illness:
83-year-old male with past medical history of A-fib on Eliquis, CAD hypertension hyperlipidemia recent stroke [facility] to [facility] emergency department today with concerns of ongoing burping and GI distress. He is unable to
give significant additional history and does have aphasia secondary to his recent stroke.
Past History
<Roshan Javed Jr., PA-C - Last Filed: 06/23/23 18:31>
Past History
ED Past Medical History: CAD, GERD, HTN and Valvular disease
ED Past Surgical History: Cardiac (Valve repair. Cardiac bypass) and Other (Hiatal hernia)
Social History
Tobacco: Non-smoker
Employment: Retired
Review of Systems
<Roshan Javed Jr., PA-C - Last Filed: 06/23/23 18:31>
Review of Systems
Allergies reviewed?: Yes
All Other Systems: ROS reviewed and negative except as documented in HPI and ROS
Phy Exam
<Roshan Javed Jr., PA-C - Last Filed: 06/23/23 18:31>
Physical Exam
Physical Exam:
GENERAL: Alert , in no apparent distress
EYE: pupils equal and reactive
NECK: Supple, no significant adenopathy.
ENT: o/p clr, mmm.
CARDIAC: Regular rate and rhythm .
LUNGS: Clear breath sounds bilaterally, no acute respiratory distress, no wheezes/rales/rhonchi
ABDOMEN: Soft, without focal tenderness, no r/g, no cvat
NEUROLOGICAL: Moving extremities
SKIN: Warm and dry, skin intact.
MUSCULOSKELETAL: No edema, well perfused.
PSYCH: Normal and appropriate interaction.
Course
<Roshan Javed Jr., PA-C - Last Filed: 06/23/23 18:31>
Orders/Labs/Results
Orders:
Orders
06/23/23 11:35
Electrocardiogram (*1) Urgent
Reason for Study: Abdominal Pain
EKG- Treatment ONCE
06/23/23 11:39
Complete Blood Count/With Diff Urgent
Comprehensive Metabolic Panel Urgent
Lipase Urgent
Troponin I Urgent
06/23/23 14:19
CT Abd/Pel (IV only)-DH only Urgent
Comment:
Reason For Exam: abd pain diffuse
Ondansetron Injectable [Zofran] 4 mg IV NOW STA
06/23/23 16:14
Chest [CR Chest - 2 Views ] Urgent
Comment:
Reason For Exam: cough
06/23/23 18:16
Urinalysis Reflex To Culture Urgent
Date Specimen was Collected: 06/23/23
Time Specimen was Collected: 18:04
Urine Microscopic Reflex Cult Urgent
Legionella Urinary Antigen Routine
JERMAINE Source: Urine
Specimen Description:
Strep pneumoniae Antigen Routine
JERMAINE Source: Urine
Specimen Description:
06/23/23 18:22
Cefepime HCl [Maxipime] 1,000 mg IV NOW STA
06/23/23 18:39
Sterile Water [Sterile Water For Injection] 10 ml .ROUTE .[facility] ONE
06/23/23 18:40
Blood Culture Q30M
JERMAINE Source: Blood/Venous
Specimen Description:
06/23/23 18:46
Admit/Transfer Patient As Directed
Co-Sign Provider:
Level of Care: Inpatient admission
Assign to:: Telemetry
Physician / Group: loly
Diagnosis: pneumonia, dysphagia
Reason for Telemetry: Arrhythmia
Date to Stop Telemetry: 06/26/23
Time to Stop Telemetry: 11:00
Reason for Hospitalization: pneumonia, dysphagia
Expected length of stay greater than two midnights?: Yes
ELOS- Estimated Length of Stay in days: 2
I certify the patient meets the requirements for IP care: Yes
06/23/23 18:47
Code Status As Directed
Resuscitation Status: Do not resuscitate
Reached after discussion with pt or family/Healthcare POA: Yes
Blood Culture Q30M
JERMAINE Source: Blood/Venous
Specimen Description:
DNR Bracelet Application ONCE
06/23/23 18:49
Vancomycin [Vancocin] 1,250 mg 0.9% Sodium Chloride 250 ml [Nss] 250 ml IV NOW
06/23/23 18:55
MRSA Screen Routine
JERMAINE Source: Nose
Specimen Description:
06/26/23 11:00
DC Protocol for Telemetry ONCE
Abnormal Lab Results
06/23/23 06/23/23
11:39 18:16
WBC 19.2 H 10^3/uL
(4.8-10.8)
RBC 4.05 L 10^6/uL
(4.70-6.10)
Hgb 11.4 L g/dL
(13.0-18.0)
Hct 34.6 L %
(39.0-52.0)
MCHC 32.9 L g/dL
(33.0-37.0)
Plt Count 445 H D 10^3/uL
(130-400)
MPV 11.0 H fL
(7.4-10.4)
Abs Immat Gran (auto) 0.2 H 10^3/uL
(0-0.05)
Absolute Neuts (auto) 15.7 H 10^3/uL
(1.4-6.5)
Absolute Monos (auto) 1.6 H 10^3/uL
(0.1-0.6)
Immature Gran % 1.2 H %
(0-0.5)
Neutrophils % 81.6 H %
(42.2-75.2)
Lymphocytes % 6.5 L %
(20.5-51.1)
Sodium 128 L mmol/L
(135-145)
Chloride 93 L mmol/L
(98-107)
BUN 25 H mg/dl
(9-20)
Glucose 136 H mg/dl
(70-99)
ALT 55 H U/L
(0-50)
Albumin 3.3 L g/dl
(3.5-5.0)
Ur Occult Blood Reflex 2+ A
(Negative)
Urine RBC 21-25 A /HPF
(0-2)
06/23/23 11:39
06/23/23 11:39
Vital Signs
Initial and Last Documented VS:
Initial Vital Signs
Temp Pulse Resp BP Pulse Ox
99.2 F 63 18 121/56 95
06/23/23 11:30 06/23/23 11:30 06/23/23 11:30 06/23/23 11:30 06/23/23 11:30
Last Documented Vital Signs
Temp Pulse Resp BP Pulse Ox
100.1 F 84 20 94/74 94
06/23/23 18:12 06/23/23 18:03 06/23/23 18:03 06/23/23 18:03 06/23/23 11:30
<Jones Bacon MD - Last Filed: 06/23/23 19:40>
Orders/Labs/Results
Orders:
Orders
06/23/23 11:35
Electrocardiogram (*1) Urgent
Reason for Study: Abdominal Pain
EKG- Treatment ONCE
06/23/23 11:39
Complete Blood Count/With Diff Urgent
Comprehensive Metabolic Panel Urgent
Lipase Urgent
Troponin I Urgent
06/23/23 14:19
CT Abd/Pel (IV only)-DH only Urgent
Comment:
Reason For Exam: abd pain diffuse
Ondansetron Injectable [Zofran] 4 mg IV NOW STA
06/23/23 16:14
Chest [CR Chest - 2 Views ] Urgent
Comment:
Reason For Exam: cough
06/23/23 18:16
Urinalysis Reflex To Culture Urgent
Date Specimen was Collected: 06/23/23
Time Specimen was Collected: 18:04
Urine Microscopic Reflex Cult Urgent
Legionella Urinary Antigen Routine
JERMAINE Source: Urine
Specimen Description:
Strep pneumoniae Antigen Routine
JERMAINE Source: Urine
Specimen Description:
06/23/23 18:22
Cefepime HCl [Maxipime] 1,000 mg IV NOW STA
06/23/23 18:39
Sterile Water [Sterile Water For Injection] 10 ml .ROUTE .[facility] ONE
06/23/23 18:40
Blood Culture Q30M
JERMAINE Source: Blood/Venous
Specimen Description:
06/23/23 18:46
Admit/Transfer Patient As Directed
Co-Sign Provider:
Level of Care: Inpatient admission
Assign to:: Telemetry
Physician / Group: loly
Diagnosis: pneumonia, dysphagia
Reason for Telemetry: Arrhythmia
Date to Stop Telemetry: 06/26/23
Time to Stop Telemetry: 11:00
Reason for Hospitalization: pneumonia, dysphagia
Expected length of stay greater than two midnights?: Yes
ELOS- Estimated Length of Stay in days: 2
I certify the patient meets the requirements for IP care: Yes
06/23/23 18:47
Code Status As Directed
Resuscitation Status: Do not resuscitate
Reached after discussion with pt or family/Healthcare POA: Yes
Blood Culture Q30M
JERMAINE Source: Blood/Venous
Specimen Description:
DNR Bracelet Application ONCE
06/23/23 18:49
Vancomycin [Vancocin] 1,250 mg 0.9% Sodium Chloride 250 ml [Nss] 250 ml IV NOW
06/23/23 18:55
MRSA Screen Routine
JERMAINE Source: Nose
Specimen Description:
06/26/23 11:00
DC Protocol for Telemetry ONCE
Abnormal Lab Results
06/23/23 06/23/23
11:39 18:16
WBC 19.2 H 10^3/uL
(4.8-10.8)
RBC 4.05 L 10^6/uL
(4.70-6.10)
Hgb 11.4 L g/dL
(13.0-18.0)
Hct 34.6 L %
(39.0-52.0)
MCHC 32.9 L g/dL
(33.0-37.0)
Plt Count 445 H D 10^3/uL
(130-400)
MPV 11.0 H fL
(7.4-10.4)
Abs Immat Gran (auto) 0.2 H 10^3/uL
(0-0.05)
Absolute Neuts (auto) 15.7 H 10^3/uL
(1.4-6.5)
Absolute Monos (auto) 1.6 H 10^3/uL
(0.1-0.6)
Immature Gran % 1.2 H %
(0-0.5)
Neutrophils % 81.6 H %
(42.2-75.2)
Lymphocytes % 6.5 L %
(20.5-51.1)
Sodium 128 L mmol/L
(135-145)
Chloride 93 L mmol/L
(98-107)
BUN 25 H mg/dl
(9-20)
Glucose 136 H mg/dl
(70-99)
ALT 55 H U/L
(0-50)
Albumin 3.3 L g/dl
(3.5-5.0)
Ur Occult Blood Reflex 2+ A
(Negative)
Urine RBC 21-25 A /HPF
(0-2)
06/23/23 11:39
06/23/23 11:39
Vital Signs
Initial and Last Documented VS:
Initial Vital Signs
Temp Pulse Resp BP Pulse Ox
99.2 F 63 18 121/56 95
06/23/23 11:30 06/23/23 11:30 06/23/23 11:30 06/23/23 11:30 06/23/23 11:30
Last Documented Vital Signs
Temp Pulse Resp BP Pulse Ox
100.1 F 84 20 94/74 94
06/23/23 18:12 06/23/23 18:03 06/23/23 18:03 06/23/23 18:03 06/23/23 11:30
<Roshan Javed Jr., PA-C - Last Filed: 06/23/23 18:31>
MDM/Problems Addressed
MDM/Problems Addressed:
83-year-old male presenting to the emergency department today with concerns of ongoing GI distress while at acute rehab with [facility]. Upon arrival patient is not able to give a significant additional history but is burping during exam. No
specific focality to his abdomen vital signs show temperature of 99.2 otherwise vital signs are normal. White count is 19.2 and has been elevated over the past few days slightly increased today than previously unclear specific source sodium is low
but has been near this level in the past of 128 chest x-ray without emergent findings potentially slightly increased opacity consistent with pneumonitis otherwise CT scan obtained without emergent findings as well. Unclear origin of pain could be
neurologic case was discussed with the PM&R doctor they have had significant issues with his ongoing symptoms worsening white count with plan to admit for further treatment. Of note the patient was on Levaquin for short period time for possible
pneumonia but was taken off of this for monitoring via infectious disease as it was unclear whether this was a true pneumonia. On reassessment his pulse ox dropped to the high 80s was placed on nasal cannula with rapid improvement. Considering
this and continually elevated white count and low-grade temperature patient started on IV antibiotics for possible recurrent patient admitted.
<Roshan Javed Jr., PA-C - Last Filed: 06/23/23 18:31>
*Critical Care Note
Total Time (30-74mins, 75-104mins- exclusive of procedures): Not Applicable
ED Attending Note
<Roshan Javed Jr., PA-C - Last Filed: 06/23/23 18:31>
-
Portions of this chart may have been created with voice recognition software.� Occasional wrong word or��sound alike� substitutions may have occurred due to the inherent limitations of voice recognition software.
<Jones Bacon MD - Last Filed: 06/23/23 19:40>
ED Attending Note
Patient seen and examined by attending physician: Yes
I performed the substantive portion of visit, reviewed & personally made and approve the management plan that is documented in note by myself or NAHID.: Yes
ED Attending Note:
83-year-old male sent from [facility] for excessive belching burping and difficulty eating progressive over the last 3 to 4 days. Recent CVA. Patient denies other complaints. Denies other infectious symptoms.
Interesting because infectious disease saw him over the chest x-ray although yesterday's note from infectious suspect reactive but questionable source observe off antibiotics at this follow-up follow WBC right right chest but on and off
GENERAL: Alert and oriented. Difficulty with speech. Sequelae of CVA
EYE: Orbits normal.
NECK: Supple, no significant adenopathy.
ENT: Pharynx without erythema
CARDIAC: Regular rate and rhythm without any obvious murmurs.
LUNGS: Clear breath sounds,normal
ABDOMEN: Soft, without focal tenderness or distention
NEUROLOGICAL: Alert and oriented , grossly non-focal
SKIN: Warm and dry, no rash or lesion, no discoloration, skin intact.
MUSCULOSKELETAL: No edema,no deformity.Good color
PSYCH: Normal and appropriate interaction.
Patient with some mild hypoxia progressive leukocytosis, recurrent upper GI symptoms of unknown etiology. Warrants inpatient management
Discharge Plan
Departure
Patient Disposition: Admit
Date of Disposition: 06/23/23
Time of Disposition: 18:31
Admit to: IMU
Admit to doctor: Rony
Presentation/result/management discussed w/ accepting MD/DO: Hospitalist
Patient with high blood pressure during this ER visit?: No
Condition: Good
Covid-19: Not Applicable
Discharge Problem:
Fever, Pneumonia
Interventions
Interventions:
*Risk Screen - Suicide Last Done: 06/23/23 11:30
*General Assessment Last Done: 06/23/23 11:30
*Neglect/Abuse Screening Last Done: 06/23/23 11:30
ED- Fall Risk Assessment Last Done: 06/23/23 11:30
*ED COVID-19 Vaccine History Last Done: 06/23/23 11:30
AF-Qkgsix-Nkckkozaxm Assessment Last Done: 06/23/23 11:30
[2023-06-23 18:24] LABS: Urine Albumin Trace (Neg - Trace); Urine Bilirubin Negative (Negative); Urine Character Clear (Clear); Urine Color Yellow; Urine Glucose Negative (Negative); Urine Ketone Negative (Negative); Urine Leukocyte Negative (Negative); Urine Nitrite Negative (Negative); Urine Occult Blood 2+ (Negative); Urine Urobilinogen Negative (Neg - 1+)
[2023-06-23 18:31] LABS: Urine Red Blood Cell 21-25 /HPF (0-2); Urine Squamous Cell 0-2 /LPF (Few); Urine White Cell None Seen /HPF (0-5)
[2023-06-23] MEDS: MAXIPIME 1000 MG IV (18:47)
--- NOTE | 2023-06-23 18:57 | HPS.HSE ---
Family Physician
-
Family Physician: Camacho Martinez PA-C
Chief Complaint
-
burping, swallowing difficulty
History of Present Illness
83-year-old male past medical history of atrial fibrillation on Eliquis, mitral valve repair, CAD status post CABG, hypertension, hyperlipidemia, recent CVA, peripheral edema, anemia, hyponatremia, GERD, BPH, polio, right renal mass,
anxiety/depression/insomnia, presenting for [facility] with ongoing GI issues, elevated white blood cell count and fever.
Patient was recently admitted from 06/07 to 06/13 for change in mental status and aphasia and was found to have large left CVA. Eliquis was held for. Time before being restarted. Patient was also noted to be bradycardic and beta-nikolay was
discontinued. Patient eventually went to acute rehab.
While in rehab patient was seen by ID due to leukocytosis which was trending up. Patient had chest x-ray, urine culture and C. difficile which were negative. He was observed off of antibiotics. He was found to have right renal mass concerning for
malignancy.
He was sent in from rehab today due to ongoing burping and difficulty swallowing. He is a poor historian. He states that he is not interested in eating due to lack of appetite difficulty swallowing. He denies any sensation of food sticking in his
throat or esophageal pain or pain with swallowing. He had diarrhea recently but this is resolved. Denies any urinary symptoms.
He denies any cough or shortness of breath or chest pain. Denies any chills.
Denies smoking or alcohol use.
Medical History
Past Medical History
Past Medical History: Reports Other (atrial fibrillation on Eliquis, mitral valve repair, CAD status post CABG, hypertension, hyperlipidemia, recent CVA, peripheral edema, anemia, hyponatremia, GERD, BPH, polio, right renal mass,
anxiety/depression/insomnia, )
Past Surgical History: Reports Other (mitral valve repair, cardiac bypass surgery, bilateral cataract surgery.))
Social History
Tobacco: Non-smoker
Alcohol: None
Drug: None
Family History
Family History: Not pertinent
Allergies / Home Medications
Allergies reflects when Allergies were last updated in [facility].
Home Medications with original date entered in [facility]
Allergy/Medication List:
Allergies
Allergy/AdvReac Type Severity Reaction Status Date / Time
cefaclor Allergy Unknown Verified 07/21/22 11:15
Cephalosporins Allergy Unknown Verified 07/21/22 11:15
Penicillins Allergy Unknown Verified 07/21/22 11:15
Home Medications
apixaban 5 mg tablet (Eliquis) 5 mg PO BID #60 tabs 07/21/22
furosemide 20 mg tablet (Lasix) 20 mg PO DAILY #30 tabs 07/21/22
atorvastatin 40 mg tablet 40 mg PO DAILY 06/08/23
finasteride 5 mg tablet 5 mg PO DAILY 06/08/23
lisinopril 20 mg tablet 20 mg PO DAILY 06/08/23
omeprazole 20 mg capsule,delayed release 20 mg PO DAILY 06/08/23
Lactobac no.2-Bifidobac no.1-S. thermo 112.5 billion cell capsule (Visbiome) 1 cap PO DAILY 06/23/23
acetaminophen 325 mg tablet 650 mg PO Q6HPRN PRN fever 06/23/23
acetaminophen 500 mg tablet 1,000 mg PO Q8HPRN PRN mild pain 06/23/23
aluminum-mag hydroxide-simethicone 200 mg-200 mg-20 mg/5 mL oral susp 30 ml PO QIDPRN PRN indigestion 06/23/23
amlodipine 5 mg tablet 5 mg PO QPM 06/23/23
bisacodyl 10 mg rectal suppository (Dulcolax (bisacodyl)) 10 mg VA HSPRN PRN if no bm with oral bisacodyl 06/23/23
bisacodyl 5 mg tablet,delayed release (Dulcolax (bisacodyl)) 10 mg PO DAILYPRN PRN constipation 06/23/23
melatonin 10 mg tablet 10 mg PO HS 06/23/23
mupirocin 2 % topical ointment 1 applic topical TID 06/23/23
nystatin 100,000 unit/mL oral suspension 5 ml PO QID 06/23/23
prochlorperazine maleate 5 mg tablet (Compazine) 5 mg PO Q6HPRN PRN nausea 06/23/23
therapeutic multivitamin 1 tab PO DAILY 06/23/23
trazodone 50 mg tablet 12.5 mg PO HS 06/23/23
Review of Systems
-
History Source: Patient
A 12 point ROS was completed and negative except as noted: Yes
Constitutional: Reports No Symptoms
EENT: Reports No Symptoms
Respiratory: Reports No Symptoms
Cardiac: Reports See HPI
Abdomen/GI: Reports See HPI
: Reports No Symptoms
Musculoskeletal: Reports No Symptoms
Skin: Reports No Symptoms
Neurological: Reports No Symptoms
Endocrine: Reports No Symptoms
Hematologic/Lymphatic: Reports No Symptoms
Psych: Reports No Symptoms
Physical Exam
Vital Signs
Vital Signs
Temp Pulse Resp BP Pulse Ox
100.1 F 84 20 94/74 94
06/23/23 18:12 06/23/23 18:03 06/23/23 18:03 06/23/23 18:03 06/23/23 11:30
Physical Exam
General: Well Developed, Well Nourished and No Apparent Distress
HEENT: NormoCephalic, Moist mucous membranes and Atraumatic
Respiratory: Clear
Cardiac: S1/S2 and Regular Rhythm; No Murmur or Rub
GI: Soft, Non Tender, Non Distended and Normal Bowel Sounds; No Organomegaly
Rectal: Deferred by Provider
Musculoskeletal: No Clubbing, No Cyanosis and No Edema
Skin: No Rash
Neuro: Nonfocal/grossly intact
Laboratory Results
-
06/23/23 11:39
06/23/23 11:39
Laboratory Results
Total Bilirubin 0.8 mg/dl (0.2-1.3) 06/23/23 11:39
AST 48 U/L (17-59) 06/23/23 11:39
ALT 55 U/L (0-50) H 06/23/23 11:39
Alkaline Phosphatase 99 U/L (38-126) 06/23/23 11:39
Troponin I < 0.012 ng/ml 06/23/23 11:39
Lipase 91 U/L (23-300) 06/23/23 11:39
Data Reviewed
-
Lab Data: Labs Reviewed by me
Old Records: Reviewed
Impression/Plan
-
IMPRESSION:
PLAN:
# Sepsis (fever, leukocytosis,) secondary to hospital-acquired pneumonia versus aspiration pneumonia
-Chest x-ray shows increased interval parenchymal test involving the posterior inferior lower lungs suggesting superimposed acute pneumonitis on chronic parenchymal changes
-CT abdomen pelvis shows mild bronchial wall thickening lower lungs posteriorly, reactive lymph nodes in lower chest
-Urinalysis unremarkable
-Check COVID and influenza
-Check blood cultures
-Check Legionella, MRSA swab, strep antigen
-IV fluids
-Vancomycin/cefepime/Flagyl
-Hold blood pressure medications due to systolic blood pressure 90s
#Thrombocytosis secondary to infection
-Continue to monitor
#Dysphagia likely related to recent CVA/possible esophagitis
#History of GERD/hiatal hernia
-Dysphagia likely related to CVA however given increased burping
-He is being treated for presumed esophagitis with nystatin swish and swallow
-Increase PPI to Protonix 40 twice daily
-GI consulted, may require esophagram
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
-Cleared to have regular diet with thin liquids during last admission
Large right lower kidney pole mass likely renal cell carcinoma
-Outpatient follow-up with urology
Paroxysmal atrial fibrillation
-Continue Eliquis
CAD status post CABG
History of mitral valve repair
Moderate tricuspid regurgitation
Essential hypertension
-Hold amlodipine, lisinopril
Hyperlipidemia
-Continue statin
Peripheral edema
-Hold Lasix
Normocytic anemia
-Hemoglobin has been relatively stable
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
-Fluid restriction
BPH
-Continue finasteride
Anxiety/depression/insomnia
-Continue trazodone
History of polio
DNR/DNI
DVT prophylaxis�Eliquis
Regular diet
[2023-06-23] MEDS: VANCOCIN 275 MG IV (19:01)
--- NOTE | 2023-06-23 21:00 | PTCARENOTE ---
Received patient from ED via stretcher. Patient stood and pivoted from stretcher to bed with assistance. Patient AAOx2, aphasia and trouble word finding noted. Patient with recent CVA. No current complaints of pain. Oriented patient to room and
placed call ralph within reach.
[2023-06-23] MEDS: NSS 1000 IV (21:47)
[2023-06-23] MEDS: FLAGYL 500 MG 100 IV (21:50)
[2023-06-23] MEDS: DESYREL 12.5 MG PO (21:52)
[2023-06-23] MEDS: MELATONIN 10 MG PO (21:52)
[2023-06-23] MEDS: PROTONIX 40 MG PO (21:53)
[2023-06-23] MEDS: MYCOSTATIN ORAL SUSPENSION 5 ML PO (21:54)
[2023-06-23] MEDS: BACTROBAN 2% OINTMENT TOPICAL (21:56)
[2023-06-24] VITALS (7 sets, daily range): BP systolic 123–154; BP diastolic 50–59
[2023-06-24] MEDS: TYLENOL 650 MG PO (02:59)
[2023-06-24] MEDS: MAXIPIME 1000 MG IV ×2 (05:24→17:06)
[2023-06-24] MEDS: STERILE WATER FOR INJECTION 10 ML IV ×2 (05:24→17:05)
[2023-06-24] MEDS: FLAGYL 500 MG 100 IV ×3 (05:26→21:05)
[2023-06-24] MEDS: ELIQUIS 5 MG PO ×2 (08:29→20:16)
[2023-06-24] MEDS: PROTONIX 40 MG PO ×2 (08:30→20:16)
[2023-06-24] MEDS: VISBIOME 1 CAP PO (08:30)
[2023-06-24] MEDS: PROSCAR 5 MG PO (08:30)
--- NOTE | 2023-06-24 08:31 | CON.GI ---
Addendum entered and electronically signed by Michael Menard MD 06/24/23 12:44:
Patient seen and examined, agree with nurse practitioner note. Admitted with recent stroke, though in rehab was having intermittent fevers and leukocytosis. We are consulted for dysphagia. He does have some mild oropharyngeal symptoms as well as
some mild esophageal symptoms, with occasional dysphagia and odynophagia and belching since his CVA. He had really no symptoms prior to this. His video swallow evaluation showed mild pharyngeal residue, penetration with thin liquids though
otherwise was okay. There was some retained barium during the esophageal sweep, and patient did have some belching. He had been treated empirically for thrush though still having significant symptoms. He does have mild oropharyngeal dysphagia
post CVA, though unclear about his esophageal symptoms. He likely has some component of aerophagia given his new oropharyngeal dysphagia adding to his belching. He could have some component of esophagitis, whether pill or infectious adding to some
of his symptoms though this seems less likely. At this point we will check barium esophagram, would hold on sedation and endoscopy unless needed given his recent CVA.
Original Note:
Consultation
-
Date/Time Consultation Requested: 06/23/23 @ 22:38
Date/Time Consultation Performed: 06/24/23 @ 08:30
Requesting Provider: Dr. Tavarez
Performing Provider: LAVERN Coffey; Dr. Menard
Reason for Consultation: esophagitis
Medical History
Chief Complaint / HPI
Chief Complaint: burping, difficulty swallowing
History of Present Illness:
The pt is an 83 yo male with a past medical history significant for atrial fibrillation on Eliquis, recent significant CVA, mitral valve repair, CAD with history of CABG, hypertension, hyperlipidemia, GERD, BPH, polio, right renal mass (recently
found on imaging), anxiety, who presented to the emergency room with complaints of difficulty swallowing and burping. We are being asked to evaluate for the presenting symptoms with concern for esophagitis. Upon review of prior records, the
patient had been recently admitted at the end of May with altered mental status and aphasia found to have a large evolving nonhemorrhagic infarct in the mid to posterior left MCA on CT imaging. MRI imaging did show a large acute transcortical
infarct in the left parietal and temporal lobes containing acute petechial hemorrhage along with a small acute transcortical infarct in the left frontal lobe containing a small amount of hemorrhage along with a chronic appearing lacunar infarct in
the left putamen. He was evaluated by neurology and stroke work-up was completed during admission. He was transferred to [facility] for acute rehab s/p stroke with expressive aphasia and ambulatory dysfunction with right hemiparesis. He was advised
on aspirin therapy until deemed safe to switch back to Eliquis as per neurology recommendations. During his rehab stay he had fevers. He underwent a CXR which showed concern for pneumonia and he was subsequently started on Levaquin. He was seen by
infectious disease who recommended to monitor off antibiotics as they thought his leukocytosis was likely reactive. He completed 5-day course of Levaquin. He had also been started on nystatin swish and swallow for treatment of esophagitis.
Patient is somewhat of a poor historian, likely in part secondary to his stroke and expressive aphasia but he reports prior to his stroke he did not have any difficulties with his swallowing. He notes he has had progressive difficulty swallowing
with food feeling as though it gets stuck at times. He also admits to some odynophagia when swallowing. He is unable to specify whether this happens with only solids or with liquids as well. He denies any overt nausea, vomiting, or forced
regurgitation. He appears to be tolerating his secretions. He does have history of chronic heartburn and is on PPI outpatient. He denies any overt heartburn symptoms at this time. He otherwise denies any abdominal pain, chest pain, shortness of
breath, generalized pain, cough, or congestion. He notes that on occasion he will have some coughing while eating. He does not recall when his last endoscopy was but does think he had 1 in the past. He is unsure of his last colonoscopy. He was
evaluated by speech therapy on 06/12 who recommended regular food consistencies and thin liquids. Routine labs on admission showed WBC 19.2, hemoglobin 11.4, platelets 445,000, sodium 128, potassium 3.9, chloride 93, BUN 25, creatinine 0.9, glucose
136, total bilirubin 0.8, AST 48, ALT 55, alk phos 99, troponin negative x 1, albumin 3.3, lipase 91. He underwent chest x-ray which did show slight interval increase in parenchymal opacities involving the posterior and inferior lower lungs
suggesting possible acute pneumonitis. A CT of the abdomen and pelvis was also done which again showed findings of a large right renal mass with no acute findings otherwise. He was admitted for further evaluation by GI and speech therapy. He was
placed on IV cefepime and Flagyl for concern of sepsis (?pulmonary source). His PPI was also increased to twice daily. His was continued on nystatin swish and swallow 4 times daily. He is pending VSE this morning. BC pending. Legionella negative.
UA without sign of infection.
Past Medical History
Past Medical History: Arrhythmias (atrial fibrillation), CAD, CHF, CVA (recent large left CVA), GERD, HTN, Hypercholesterolemia, Valvular Disease (mitral valve disease with repair), Psychiatric (anxiety, depression) and Other (pulmonary HTN, BPH,
recent pneumonia, hx polio, right renal mass, chronic anemia, depression/anxiety)
Past Surgical History: Cardiac (CABG, mitral valve repair) and Other (bilateral cataract)
Social History
Tobacco: Non-Smoker
Alcohol: None
Drug: None
Family History
Family History: Reviewed & Not Pertinent
Allergies / Home Medications
Allergy/AdvReac Type Severity Reaction Status Date / Time
cefaclor Allergy Unknown Verified 07/21/22 11:15
Cephalosporins Allergy Unknown Verified 07/21/22 11:15
Penicillins Allergy Unknown Verified 07/21/22 11:15
�Medication �Instructions �Recorded
apixaban 5 mg tablet (Eliquis) 5 mg PO BID #60 tabs 07/21/22
furosemide 20 mg tablet (Lasix) 20 mg PO DAILY #30 tabs 07/21/22
atorvastatin 40 mg tablet 40 mg PO DAILY 06/08/23
finasteride 5 mg tablet 5 mg PO DAILY 06/08/23
lisinopril 20 mg tablet 20 mg PO DAILY 06/08/23
omeprazole 20 mg capsule,delayed 20 mg PO DAILY 06/08/23
release
Lactobac no.2-Bifidobac no.1-S. 1 cap PO DAILY 06/23/23
thermo 112.5 billion cell capsule
(Visbiome)
acetaminophen 325 mg tablet 650 mg PO Q6HPRN PRN fever 06/23/23
acetaminophen 500 mg tablet 1,000 mg PO Q8HPRN PRN mild pain 06/23/23
aluminum-mag hydroxide-simethicone 30 ml PO QIDPRN PRN indigestion 06/23/23
200 mg-200 mg-20 mg/5 mL oral susp
amlodipine 5 mg tablet 5 mg PO QPM 06/23/23
bisacodyl 10 mg rectal suppository 10 mg RI HSPRN PRN if no bm with 06/23/23
(Dulcolax (bisacodyl)) oral bisacodyl
bisacodyl 5 mg tablet,delayed 10 mg PO DAILYPRN PRN constipation 06/23/23
release (Dulcolax (bisacodyl))
melatonin 10 mg tablet 10 mg PO HS 06/23/23
mupirocin 2 % topical ointment 1 applic topical TID 06/23/23
nystatin 100,000 unit/mL oral 5 ml PO QID 06/23/23
suspension
prochlorperazine maleate 5 mg 5 mg PO Q6HPRN PRN nausea 06/23/23
tablet (Compazine)
therapeutic multivitamin 1 tab PO DAILY 06/23/23
trazodone 50 mg tablet 12.5 mg PO HS 06/23/23
Review of Systems
-
Unable to obtain full review of systems at this time due to: Acuity and Other (difficult historian 2/2 stroke (see HPI))
Vital Signs
Temp Pulse Resp BP Pulse Ox
98 F 73 20 123/57 96
06/24/23 03:06 06/24/23 03:06 06/24/23 03:06 06/24/23 03:06 06/24/23 03:06
Physical Exam
Exam
General: Well Developed, Well Nourished and Other (elderly appearing male in NAD)
HEENT: Normocephalic, Anicteric and Atraumatic
Respiratory: Clear (overall diminished but clear)
Cardiac: S1/S2 and Irregular Rhythm
Breast: N/A
GI: Soft, Non Tender, Non Distended, Normal Bowel Sounds and Other (round, obese abdomen, soft)
Musculoskeletal: No Edema
Skin: Warm and Dry
Neuro: Awake and Alert
Psych: Calm
Results
WBC 19.2 10^3/uL (4.8-10.8) H 06/23/23 11:39
Hgb 11.4 g/dL (13.0-18.0) L 06/23/23 11:39
Hct 34.6 % (39.0-52.0) L 06/23/23 11:39
MCV 85.4 fL (80.0-94.0) 06/23/23 11:39
Plt Count 445 10^3/uL (130-400) H D 06/23/23 11:39
Absolute Neuts (auto) 15.7 10^3/uL (1.4-6.5) H 06/23/23 11:39
Sodium 128 mmol/L (135-145) L 06/23/23 11:39
Potassium 3.9 mmol/L (3.5-5.1) 06/23/23 11:39
Chloride 93 mmol/L (98-107) L 06/23/23 11:39
Carbon Dioxide 28 mmol/L (22-30) 06/23/23 11:39
BUN 25 mg/dl (9-20) H 06/23/23 11:39
Creatinine 0.9 mg/dL (0.7-1.3) 06/23/23 11:39
Calcium 9.0 mg/dl (8.4-10.2) 06/23/23 11:39
Total Bilirubin 0.8 mg/dl (0.2-1.3) 06/23/23 11:39
AST 48 U/L (17-59) 06/23/23 11:39
ALT 55 U/L (0-50) H 06/23/23 11:39
Alkaline Phosphatase 99 U/L (38-126) 06/23/23 11:39
Lipase 91 U/L (23-300) 06/23/23 11:39
Diagnostic Image Results:
06/22/2023 US abdomen: IMPRESSION: 'Solid-appearing right renal mass concerning for malignancy until proven otherwise. Nonvisualization of pancreas, proximal IVC and abdominal aorta.'
06/23/2023 CT A/P iv contrast only: IMPRESSION: 'In the visualized lower lungs posteriorly, mild bronchial wall thickening. Areas of nodular and slightly more confluent parenchymal opacity, similar to examination of August 06, 2022, and probably
representing chronic parenchymal disease, perhaps associated with chronic bronchitis. Slightly enlarged lymph nodes are present in the visualized lower chest, likely reactive. There is a large mass arising from the lower pole of the right kidney,
which corresponds to mass seen on recent ultrasound. On recent ultrasound, findings suggestive that this is a solid mass most likely renal cell carcinoma. However, this mass should be evaluated with imaging prior to and following intravenous
contrast administration, with CT scan or MRI. Trabeculated bladder with multiple diverticula. 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
Prior GI Procedures:
EGD: pt unsure when last EGD was
Colonoscopy: pt unsure when last colonoscopy was
Assessment / Plan
-
The pt is an 83 yo male with a past medical history significant for atrial fibrillation on Eliquis, recent significant CVA, mitral valve repair, CAD with history of CABG, hypertension, hyperlipidemia, GERD, BPH, polio, right renal mass (recently
found on imaging), anxiety, who presented to the emergency room with complaints of difficulty swallowing and burping. We are being asked to evaluate for the presenting symptoms with concern for esophagitis. Recent hospital course, with acute CVA.
Now with concern for ongoing infectious etiology with fevers and leukocytosis although seen by infectious disease who thought was possibly reactive. Started on IV antibiotics for potential pneumonia versus pneumonitis. He has had ongoing
difficulty with swallowing since being at rehab. Previously seen by speech therapy who had advised on regular solids with thin liquids. No prior dysphagia prior to his stroke. He is on chronic PPI for reflux management. Unclear when his last
endoscopy was (he believe he had one in the past). He is on Eliquis for A-fib and history of recent CVA.
Problem list:
-Dysphagia, odynophagia
-Recent acute CVA with right sided weakness and expressive aphasia
-Chronic anticoagulation with Eliquis for A-fib/recent stroke
-Chronic GERD on PPI
-Persistent leukocytosis
-Acute on chronic normocytic anemia
-Hyponatremia
-Right renal mass
Other pertinent medical history:
-History of polio
-BPH
-CAD status post CABG
-Mitral valve repair
-Hypertension
-Hyperlipidemia
-Anxiety/depression
Recommendations:
-Etiology of ongoing dysphagia likely secondary to effects from recent recent stroke versus pill esophagitis versus Kelsey esophagitis with recent antibiotics versus Schatzki ring/esophageal narrowing versus other.
-Given his significant recent stroke, would not pursue endoscopic evaluation at this time unless deemed urgent.
-Would await speech evaluation and VSE which is being done today
-Consider esophagram pending above if thought to be more esophageal in nature
-Continue twice daily PPI
-Consider initiation of Carafate if significant odynophagia (he does not elaborate much on this)
-Continue nystatin swish and swallow for now, but i'm unsure that this will be helpful without obvious signs of Kelsey infection (he had no oral thrush)
-Diet as per speech therapy
-Will follow
Data Reviewed
-
Old Records: Reviewed
-
-
Thank you for consultation and allowing me to participate in the patient's care. Please call the manager communication GI physician during the after hours with any questions or concerns.
[2023-06-24] MEDS: MYCOSTATIN ORAL SUSPENSION 5 ML PO ×4 (08:32→21:05)
[2023-06-24] MEDS: LIPITOR 40 MG PO (08:32)
[2023-06-24] MEDS: THERAGRAN 1 TABLET PO (08:32)
[2023-06-24] MEDS: BACTROBAN 2% OINTMENT 1 APPLIC TOPICAL ×3 (08:35→21:07)
--- NOTE | 2023-06-24 09:49 | PTOTSP ---
SPEECH THERAPY SWALLOW EVALUATION:
Patient exhibits grossly functional oral swallow phase, suspect pharyngeal dysphagia given currently admitted with pneumonia, possibly aspiration-related. Patient at risk for aspiration and related complications given recent CVA and related
cognitive communication impairments. Recommend Videofluoroscopic Swallowing Study to further assess patient's swallow function. Recommend continue Regular texture diet, thin liquids until VSE. Medications whole with liquid as tolerated. Aspiration
precautions including: Discontinue oral diet if worsening respiratory/mental status or signs of aspiration; Upright positioning as tolerated; 100% supervision with meals; Small bites/sips; Slow rate of intake. Speech therapy to follow and provide
further recommendations pending VSE results.
RECOMMEND:
1) Videofluoroscopic Swallowing Study
2) Regular texture diet, thin liquids
3) Meds whole with liquid as tolerated
4) Aspiration precautions: Discontinue oral diet if worsening respiratory/mental status or signs of aspiration; Upright positioning as tolerated; 100% supervision with meals; Small bites/sips; Slow rate of intake
5) Speech therapy to follow and provide further recommendations pending VSE results
[2023-06-24 10:30] LABS: % Basophils 0.7 % (0-2); % Eosinophils 1.5 % (0-6); % Immature Granulocytes 1.3 % (0-0.5); % Lymphocytes 6.8 % (20.5-51.1); % Monocytes 11.2 % (1.7-9.3); % Neutrophils 78.5 % (42.2-75.2); Absolute Basophils 0.1 10^3/uL (0-0.2); Absolute Eosinophils 0.2 10^3/uL (0-0.7); Absolute Immature Granulocytes 0.2 10^3/uL (0-0.05); Absolute Monocytes 1.6 10^3/uL (0.1-0.6); Absolute Neutrophils 11.1 10^3/uL (1.4-6.5); Hematocrit 28.4 % (39.0-52.0); Hemoglobin 9.4 g/dL (13.0-18.0); Mean Corp Hgb Conc. 33.1 g/dL (33.0-37.0); Mean Corpuscular Hgb 28.1 pg (27.0-31.0); Mean Corpuscular Volume 84.8 fL (80.0-94.0); Mean Platelet Volume 10.9 fL (7.4-10.4); Nucleated Red Blood Cells % 0 % (-); Platelet Count 372 10^3/uL (130-400); Red Blood Cell Count 3.35 10^6/uL (4.70-6.10); White Blood Cell Count 14.2 10^3/uL (4.8-10.8)
[2023-06-24 10:58] LABS: ALT (SGPT) 45 U/L (0-50); AST (SGOT) 37 U/L (17-59); Albumin 2.6 g/dl (3.5-5.0); Alkaline Phosphatase 81 U/L (38-126); Blood Urea Nitrogen 21 mg/dl (9-20); Calcium 8.4 mg/dl (8.4-10.2); Carbon Dioxide 30 mmol/L (22-30); Chloride 93 mmol/L (98-107); Estimated Creatinine Clearance 51 ml/min; Glucose 121 mg/dl (70-99); Potassium 4.2 mmol/L (3.5-5.1); Sodium 129 mmol/L (135-145); Total Bilirubin 0.9 mg/dl (0.2-1.3); Total Protein 5.4 g/dl (6.3-8.2); eGFR > 60.00
--- NOTE | 2023-06-24 12:19 | W.PN.HOSP.TC ---
Today's Communication/Plan
-
await GI input re: next steps
Assessment / Plan
Assessment / Plan
pt is an 83 year old male
Sepsis (fever, leukocytosis,) secondary to hospital-acquired pneumonia versus aspiration pneumonia (more likely)--urine legionella and strep negative-Vancomycin/cefepime/Flagyl-Hold blood pressure medications due to systolic blood pressure 90s--VSE
done shows aspiration
Thrombocytosis secondary to infection-Continue to monitor
Dysphagia likely related to recent CVA/possible esophagitis--History of GERD/hiatal hernia-Dysphagia likely related to CVA however given increased burping-He is being treated for presumed esophagitis with nystatin swish and swallow-Increase PPI to
Protonix 40 twice daily--await GI input, may require esophagram
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
-Cleared to have regular diet with thin liquids during last admission
Large right lower kidney pole mass likely renal cell carcinoma-Outpatient follow-up with urology
Paroxysmal atrial fibrillation-Continue Eliquis
CAD status post CABG
History of mitral valve repair
Moderate tricuspid regurgitation
Essential hypertension-Hold amlodipine, lisinopril
Hyperlipidemia-Continue statin
Peripheral edema-Hold Lasix
Normocytic anemia-Hemoglobin has been relatively stable
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
BPH-Continue finasteride
Anxiety/depression/insomnia-Continue trazodone
History of polio
DNR/DNI
DVT prophylaxis�Eliquis
Anticipated Discharge: 24 - 48 hours
Subjective/Interval History
-
Date of Service: June 24, 2023
pt returned from video swallow
Objective Data
-
Labs:
Laboratory Results
06/24/23
09:42
WBC 14.2 H
Hgb 9.4 L
Hct 28.4 L
Plt Count 372
Sodium 129 L
Potassium 4.2
Chloride 93 L
Carbon Dioxide 30
BUN 21 H
Creatinine 1.0
Glucose 121 H
Calcium 8.4
Total Bilirubin 0.9
AST 37
ALT 45
Alkaline Phosphatase 81
Vital Signs:
max temp for 24 hours
06/23/23
18:12
Temp 100.1 F
Vital Signs
Temp Pulse Resp BP Pulse Ox
97.3 F 70 18 125/59 93
06/24/23 12:10 06/24/23 12:10 06/24/23 12:10 06/24/23 12:10 06/24/23 12:10
I&O
06/23/23 06/24/23 06/25/23
06:59 06:59 06:59
Intake Total 240 / 240
Balance 240 / 240
Review of Systems
-
All other systems: Reviewed and negative
Physical Exam
-
General: Well Developed, Well Nourished and No Apparent Distress
HEENT: Normocephalic and Atraumatic
Respiratory: Clear to Auscultation; Negative Wheezes or Rhonchi
Cardiac: Regular Rhythm and S1/S2; Negative Murmur
GI: Soft, Nontender, Nondistended and Normal Bowel Sounds
Musculoskeletal: No Clubbing, No Cyanosis and No Edema
Neuro: Awake
[2023-06-24] MEDS: NSS IV (12:32)
--- NOTE | 2023-06-24 12:44 | W.PN.UPDATE ---
Update Note
Progress Note Update
For billing purposes only.
--- NOTE | 2023-06-24 12:45 | PTOTSP ---
SPEECH THERAPY VIDEOFLUOROSCOPIC SWALLOWING STUDY:
Patient exhibits WFL oral swallow function and mild pharyngeal dysphagia, likely chronic related to recent CVA, and acutely exacerbated by weakness related to current sepsis/pneumonia. Patient currently admitted with pneumonia, suspect
aspiration-related. Patient is at risk for aspiration given cognitive/language impairments and impulsivity. Patient at also at risk for post-prandial aspiration given noted retention in esophagus. VFSS revealed penetration with thin liquids (cup,
consecutive sips cup, straw) during the swallow that occurred without cough response. Given patient's tenuous pulmonary status, recommend temporary liquid modification to ensure swallow safety. Recommend Regular texture diet and Mildly-thick
liquids. Suspect liquid modification may not be indicated long-term given patient was previously tolerating Regular texture diet and thin liquids without aspiration related signs or symptoms. Recommend medications whole with Mildly-thick liquids or
in puree. Aspiration precautions including: Upright positioning; 100% supervision to ensure use of strategies and assistance as needed; Small single sips and bites; Slow rate of intake; Remain upright 30 minutes after eating/drinking; Oral care
3x/day to reduce risk for nosocomial infection; Dry swallows intermittently during meals; Intersperse liquids and alternate textures; Discontinue oral diet if signs of aspiration or a decline in mental or respiratory status. Speech therapy to
follow, assess diet tolerance and modify as appropriate, monitor CXR and labs, provide education regarding aspiration risks/precautions, and provide swallow rehabilitation as appropriate.
RECOMMEND:
1) Regular texture diet and Mildly-thick liquids
2) medications whole with Mildly-thick liquids or in puree
3) Aspiration precautions including: Upright positioning; 100% supervision to ensure use of strategies and assistance as needed; Small single sips and bites; Slow rate of intake; Remain upright 30 minutes after eating/drinking; Oral care 3x/day to
reduce risk for nosocomial infection; Dry swallows intermittently during meals; Intersperse liquids and alternate textures; Discontinue oral diet if signs of aspiration or a decline in mental or respiratory status
4) Speech therapy to follow, assess diet tolerance and modify as appropriate, monitor CXR and labs, provide education regarding aspiration risks/precautions, and provide swallow rehabilitation as appropriate
[2023-06-24] MEDS: TYLENOL 1000 MG PO (20:24)
[2023-06-24] MEDS: MELATONIN 10 MG PO (21:05)
[2023-06-24] MEDS: DESYREL 12.5 MG PO (21:06)
[2023-06-25 03:05] VITALS: BP 123/63
[2023-06-25] MEDS: MAXIPIME 1000 MG IV ×2 (05:17→16:39)
[2023-06-25] MEDS: STERILE WATER FOR INJECTION 10 ML IV ×2 (05:17→16:39)
[2023-06-25] MEDS: FLAGYL 500 MG 100 IV ×3 (05:19→21:19)
[2023-06-25 07:01] LABS: Hemoglobin 9.4 g/dL (13.0-18.0); Mean Corp Hgb Conc. 33.6 g/dL (33.0-37.0); Mean Corpuscular Volume 83.3 fL (80.0-94.0); Mean Platelet Volume 10.6 fL (7.4-10.4); Platelet Count 370 10^3/uL (130-400); Red Blood Cell Count 3.36 10^6/uL (4.70-6.10); Red Cell Dist. Width 13.8 % (11.5-14.5)
[2023-06-25 07:26] LABS: Blood Urea Nitrogen 19 mg/dl (9-20); Calcium 8.4 mg/dl (8.4-10.2); Carbon Dioxide 29 mmol/L (22-30); Chloride 95 mmol/L (98-107); Estimated Creatinine Clearance 57 ml/min; Glucose 109 mg/dl (70-99); Potassium 3.9 mmol/L (3.5-5.1); Sodium 130 mmol/L (135-145); eGFR > 60.00
[2023-06-25 07:30] VITALS: BP 143/65
--- NOTE | 2023-06-25 09:23 | W.PN.GI.CBS2 ---
Today's Communication / Plan
-
Please see assessment and plan for details.
Assessment / Plan
-
1. Dysphagia: He does have mild oropharyngeal dysphagia post CVA, though unclear about his esophageal symptoms. He likely has some component of aerophagia given his new oropharyngeal dysphagia adding to his belching. He could have some component
of esophagitis, whether pill or infectious adding to some of his symptoms though this seems less likely. At this point we will await barium esophagram, would hold on sedation and endoscopy unless needed given his recent CVA.
Subjective
Subjective
Date of Service: June 25, 2023
Patient feeling okay, no new complaints, tolerated diet without any significant difficulty.
Objective
Data Reviewed
Laboratory Data:
Laboratory Results
06/25/23 06:11
06/25/23 06:11
Laboratory Results
Magnesium 2.0 mg/dl (1.6-2.3) 06/25/23 06:11
Total Bilirubin 0.9 mg/dl (0.2-1.3) 06/24/23 09:42
AST 37 U/L (17-59) 06/24/23 09:42
ALT 45 U/L (0-50) 06/24/23 09:42
Alkaline Phosphatase 81 U/L (38-126) 06/24/23 09:42
Lipase 91 U/L (23-300) 06/23/23 11:39
Vital Signs and I&O:
Vital Signs
Temp Pulse Resp BP Pulse Ox
97.6 F 70 20 143/65 96
06/25/23 07:30 06/25/23 07:30 06/25/23 07:30 06/25/23 07:30 06/25/23 07:30
I&O
06/24/23 06/25/23 06/26/23
06:59 06:59 06:59
Intake Total 240 / 240 720 / 720
Balance 240 / 240 720 / 720
Physical Exam
Physical Exam
General: NAD
Abdomen: normal bowel sounds, soft, no tenderness, no masses or bruits, no ascites
[2023-06-25] MEDS: ELIQUIS 5 MG PO ×2 (09:33→20:01)
[2023-06-25] MEDS: PROSCAR 5 MG PO (09:33)
[2023-06-25] MEDS: VISBIOME 1 CAP PO (09:33)
[2023-06-25] MEDS: BACTROBAN 2% OINTMENT 1 APPLIC TOPICAL ×3 (09:33→21:22)
[2023-06-25] MEDS: PROTONIX 40 MG PO ×2 (09:33→20:01)
[2023-06-25] MEDS: MYCOSTATIN ORAL SUSPENSION 5 ML PO ×4 (09:33→21:23)
[2023-06-25] MEDS: THERAGRAN 1 TABLET PO (09:33)
[2023-06-25] MEDS: LIPITOR 40 MG PO (09:33)
[2023-06-25 11:10] VITALS: BP 139/64
--- NOTE | 2023-06-25 11:47 | W.PN.HOSP.TC ---
Today's Communication/Plan
-
waiting for esophagram
apprec GI
Assessment / Plan
Assessment / Plan
pt is an 83 year old male
Sepsis (fever, leukocytosis,) secondary to hospital-acquired pneumonia versus aspiration pneumonia (more likely)--urine legionella and strep negative--cont Vancomycin/cefepime/Flagyl--Hold blood pressure medications due to systolic blood pressure
90s--VSE done shows aspiration
Thrombocytosis secondary to infection--improved
Dysphagia likely related to recent CVA/possible esophagitis--History of GERD/hiatal hernia--Dysphagia likely related to CVA however given increased burping, being treated for presumed esophagitis with nystatin swish and swallow--Increase PPI to
Protonix 40 twice daily--apprec GI input, waiting for esophagram
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
Large right lower kidney pole mass likely renal cell carcinoma--Outpatient follow-up with urology
Paroxysmal atrial fibrillation-Continue Eliquis
CAD status post CABG
History of mitral valve repair
Moderate tricuspid regurgitation
Essential hypertension-Hold amlodipine, lisinopril
Hyperlipidemia-Continue statin
Peripheral edema-Hold Lasix
Normocytic anemia-Hemoglobin has been relatively stable
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
BPH-Continue finasteride
Anxiety/depression/insomnia-Continue trazodone
History of polio
DNR/DNI
DVT prophylaxis�Eliquis
Anticipated Discharge: > 48 hours
Subjective/Interval History
-
Date of Service: June 25, 2023
pt waiting for esophagram
Objective Data
-
Labs:
Laboratory Results
06/25/23
06:11
WBC 15.0 H
Hgb 9.4 L
Hct 28.0 L
Plt Count 370
Sodium 130 L
Potassium 3.9
Chloride 95 L
Carbon Dioxide 29
BUN 19
Creatinine 0.9
Glucose 109 H
Calcium 8.4
Vital Signs:
max temp for 24 hours
06/24/23
19:53
Temp 98.6 F
Vital Signs
Temp Pulse Resp BP Pulse Ox
97.9 F 72 20 139/64 95
06/25/23 11:10 06/25/23 11:10 06/25/23 11:10 06/25/23 11:10 06/25/23 11:10
I&O
06/24/23 06/25/23 06/26/23
06:59 06:59 06:59
Intake Total 240 / 240 720 / 720
Balance 240 / 240 720 / 720
Review of Systems
-
All other systems: Reviewed and negative
Physical Exam
-
General: Appears Chronically Ill
HEENT: Normocephalic and Atraumatic
Respiratory: Clear to Auscultation; Negative Wheezes or Rhonchi
Cardiac: Regular Rhythm and S1/S2; Negative Murmur
GI: Soft, Nontender, Nondistended and Normal Bowel Sounds
Musculoskeletal: No Clubbing, No Cyanosis and No Edema
Neuro: Awake and Alert
[2023-06-25] MEDS: COMPAZINE 5 MG PO (13:17)
[2023-06-25 15:20] VITALS: BP 156/70
[2023-06-25] MEDS: TYLENOL 1000 MG PO (16:49)
[2023-06-25 19:55] VITALS: BP 136/68
[2023-06-25] MEDS: MELATONIN 10 MG PO (21:22)
[2023-06-25] MEDS: DESYREL 12.5 MG PO (21:22)
[2023-06-25 23:55] VITALS: BP 125/62
[2023-06-26] VITALS (7 sets, daily range): BP systolic 130–144; BP diastolic 60–70
[2023-06-26] MEDS: STERILE WATER FOR INJECTION 10 ML IV ×2 (05:04→16:12)
[2023-06-26] MEDS: FLAGYL 500 MG 100 IV ×3 (05:04→20:56)
[2023-06-26] MEDS: MAXIPIME 1000 MG IV ×2 (05:04→16:13)
[2023-06-26 07:31] LABS: Hematocrit 28.7 % (39.0-52.0); Hemoglobin 9.6 g/dL (13.0-18.0); Mean Corp Hgb Conc. 33.4 g/dL (33.0-37.0); Mean Corpuscular Hgb 28.1 pg (27.0-31.0); Mean Corpuscular Volume 83.9 fL (80.0-94.0); Mean Platelet Volume 10.4 fL (7.4-10.4); Platelet Count 393 10^3/uL (130-400); Red Blood Cell Count 3.42 10^6/uL (4.70-6.10); Red Cell Dist. Width 13.7 % (11.5-14.5); White Blood Cell Count 15.4 10^3/uL (4.8-10.8)
[2023-06-26 08:11] LABS: Blood Urea Nitrogen 21 mg/dl (9-20); Calcium 8.4 mg/dl (8.4-10.2); Carbon Dioxide 26 mmol/L (22-30); Chloride 98 mmol/L (98-107); Estimated Creatinine Clearance 64 ml/min; Glucose 116 mg/dl (70-99); Potassium 4.1 mmol/L (3.5-5.1); Sodium 131 mmol/L (135-145); eGFR > 60.00
[2023-06-26] MEDS: PROSCAR 5 MG PO (08:34)
[2023-06-26] MEDS: THERAGRAN 1 TABLET PO (08:34)
[2023-06-26] MEDS: ELIQUIS 5 MG PO ×2 (08:34→19:41)
[2023-06-26] MEDS: LIPITOR 40 MG PO (08:34)
[2023-06-26] MEDS: PROTONIX 40 MG PO ×2 (08:34→19:41)
[2023-06-26] MEDS: VISBIOME PO ×2 (08:34→08:40)
[2023-06-26] MEDS: MYCOSTATIN ORAL SUSPENSION 5 ML PO ×4 (08:34→21:00)
[2023-06-26] MEDS: BACTROBAN 2% OINTMENT 1 APPLIC TOPICAL ×3 (08:35→20:59)
--- NOTE | 2023-06-26 08:49 | W.PN.GI.CBS2 ---
Today's Communication / Plan
-
See assessment and plan for details.
Assessment / Plan
-
1. Dysphagia: He does have mild oropharyngeal dysphagia post CVA, though unclear about his esophageal symptoms. He likely has some component of aerophagia given his new oropharyngeal dysphagia adding to his belching. He could have some component
of esophagitis, whether pill or infectious adding to some of his symptoms though this seems less likely. At this point we will await barium esophagram, would hold on sedation and endoscopy unless needed given his recent CVA.
Subjective
Subjective
Date of Service: June 26, 2023
Patient doing okay, no new issues overnight, tolerating diet without much difficulty.
Objective
Data Reviewed
Laboratory Data:
Laboratory Results
06/26/23 07:06
06/26/23 07:06
Laboratory Results
Magnesium 2.0 mg/dl (1.6-2.3) 06/26/23 07:06
Total Bilirubin 0.9 mg/dl (0.2-1.3) 06/24/23 09:42
AST 37 U/L (17-59) 06/24/23 09:42
ALT 45 U/L (0-50) 06/24/23 09:42
Alkaline Phosphatase 81 U/L (38-126) 06/24/23 09:42
Lipase 91 U/L (23-300) 06/23/23 11:39
Vital Signs and I&O:
Vital Signs
Temp Pulse Resp BP Pulse Ox
99.6 F 93 20 135/63 96
06/26/23 07:51 06/26/23 07:51 06/26/23 07:51 06/26/23 07:51 06/26/23 07:51
I&O
06/25/23 06/26/23 06/27/23
06:59 06:59 06:59
Intake Total 720 / 720 940 / 940
Output Total 300 / 300
Balance 720 / 720 640 / 640
Physical Exam
Physical Exam
General: NAD
Abdomen: normal bowel sounds, soft, no tenderness, no masses or bruits, no ascites
--- NOTE | 2023-06-26 12:35 | CM ---
Patient from [facility] with Hx recent CVA with Dx Sepsis secondary to hospital-acquired pneumonia versus aspiration pneumonia, dysphagia. Room air. Receiving IV cefepime, IV Flagyl. ST - VSE.
Met with patient and spoke with nephew Jose's Kina (cell [phone]);
the patient had been residing alone in a mobile home at [facility] until his stroke.
He was then hospitalized at and discharged to [facility].
The patient has no DME, prior VN or SNF.
PCP - Camacho Martinez
Pharmacy - [facility]
Kina says that they are hoping patient will return to [facility] to complete rehab. She is worried about them holding his bed- informed her will make a referral to [facility] after he is seen by PT/OT.
Kina says that Jose is asking to speak with MD about patient's code status---> message to Dr Venegas.
Request to Dr Venegas for PT/OT Evals.
Plan referral to [facility] when PT/OT Evals are completed.
--- NOTE | 2023-06-26 14:12 | W.PN.HOSP.TC ---
Today's Communication/Plan
-
PT/OT
waiting for esophagram
hopefully back to [facility]
Assessment / Plan
Assessment / Plan
pt is an 83 year old male
Sepsis (fever, leukocytosis,) secondary to hospital acquired pneumonia versus aspiration pneumonia (more likely)--urine legionella and strep negative--cont Vancomycin/cefepime/Flagyl--Hold blood pressure medications due to systolic blood pressure
90s--VSE done shows aspiration
Thrombocytosis secondary to infection--improved
Dysphagia likely related to recent CVA/possible esophagitis--History of GERD/hiatal hernia--Dysphagia likely related to CVA however given increased burping, being treated for presumed esophagitis with nystatin swish and swallow--Increase PPI to
Protonix 40 twice daily--apprec GI input, waiting for esophagram
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
Large right lower kidney pole mass likely renal cell carcinoma--Outpatient follow-up with urology
Paroxysmal atrial fibrillation-Continue Eliquis
CAD status post CABG
History of mitral valve repair
Moderate tricuspid regurgitation
Essential hypertension-Hold amlodipine, lisinopril
Hyperlipidemia-Continue statin
Peripheral edema-Hold Lasix
Normocytic anemia-Hemoglobin has been relatively stable
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
BPH-Continue finasteride
Anxiety/depression/insomnia-Continue trazodone
History of polio
DNR/DNI
DVT prophylaxis�Eliquis
Anticipated Discharge: 24 - 48 hours
Subjective/Interval History
-
Date of Service: June 26, 2023
pt waiting for esophagram
Objective Data
-
Labs:
Laboratory Results
06/26/23
07:06
WBC 15.4 H
Hgb 9.6 L
Hct 28.7 L
Plt Count 393
Sodium 131 L
Potassium 4.1
Chloride 98
Carbon Dioxide 26
BUN 21 H
Creatinine 0.8
Glucose 116 H
Calcium 8.4
Vital Signs:
max temp for 24 hours
06/25/23
19:55
Temp 98.3 F
Vital Signs
Temp Pulse Resp BP Pulse Ox
98.1 F 68 20 135/60 93
06/26/23 12:31 06/26/23 12:31 06/26/23 12:31 06/26/23 12:31 06/26/23 12:31
I&O
06/25/23 06/26/23 06/27/23
06:59 06:59 06:59
Intake Total 720 / 720 940 / 940 1360 / 1360
Output Total 300 / 300
Balance 720 / 720 640 / 640 1360 / 1360
Review of Systems
-
All other systems: Reviewed and negative
Physical Exam
-
General: Well Developed, Well Nourished and No Apparent Distress
HEENT: Normocephalic and Atraumatic
Respiratory: Clear to Auscultation; Negative Wheezes or Rhonchi
Cardiac: Regular Rhythm and S1/S2; Negative Murmur
GI: Soft, Nontender, Nondistended and Normal Bowel Sounds
Musculoskeletal: No Clubbing, No Cyanosis and No Edema
Neuro: Awake and Alert
Psych: Calm
[2023-06-26] MEDS: COMPAZINE 5 MG PO (16:12)
[2023-06-26] MEDS: MELATONIN 10 MG PO (20:58)
[2023-06-26] MEDS: DESYREL 12.5 MG PO (20:58)
[2023-06-27 03:37] VITALS: BP 144/69
[2023-06-27] MEDS: STERILE WATER FOR INJECTION 10 ML IV (05:00)
[2023-06-27] MEDS: MAXIPIME 1000 MG IV (05:00)
[2023-06-27] MEDS: FLAGYL 500 MG 100 IV ×2 (05:01→15:14)
[2023-06-27 05:31] LABS: Hematocrit 29.1 % (39.0-52.0); Hemoglobin 9.8 g/dL (13.0-18.0); Mean Corp Hgb Conc. 33.7 g/dL (33.0-37.0); Mean Corpuscular Hgb 28.2 pg (27.0-31.0); Mean Corpuscular Volume 83.9 fL (80.0-94.0); Mean Platelet Volume 10.1 fL (7.4-10.4); Platelet Count 393 10^3/uL (130-400); Red Blood Cell Count 3.47 10^6/uL (4.70-6.10); Red Cell Dist. Width 13.8 % (11.5-14.5); White Blood Cell Count 16.7 10^3/uL (4.8-10.8)
[2023-06-27] MEDS: MAALOX 30 ML PO (05:55)
[2023-06-27 05:57] LABS: Blood Urea Nitrogen 22 mg/dl (9-20); Calcium 8.6 mg/dl (8.4-10.2); Carbon Dioxide 27 mmol/L (22-30); Chloride 99 mmol/L (98-107); Estimated Creatinine Clearance 64 ml/min; Glucose 123 mg/dl (70-99); Magnesium 1.9 mg/dl (1.6-2.3); Sodium 132 mmol/L (135-145); eGFR > 60.00
--- NOTE | 2023-06-27 06:28 | W.PN.GI.CBS2 ---
Today's Communication / Plan
-
See assessment and plan for details.
Assessment / Plan
-
1. Dysphagia: He does have mild oropharyngeal dysphagia post CVA, though unclear about his esophageal symptoms. He likely has some component of aerophagia given his new oropharyngeal dysphagia adding to his belching. He could have some component
of esophagitis, whether pill or infectious adding to some of his symptoms though this seems less likely. At this point we will await barium esophagram, would hold on sedation and endoscopy unless needed given his recent CVA.
Subjective
Subjective
Date of Service: June 27, 2023
Patient feeling okay, no new events. Some mild dysphagia yesterday and decreased appetite though no vomiting, fever or chills.
Objective
Data Reviewed
Laboratory Data:
Laboratory Results
06/27/23 05:13
06/27/23 05:13
Laboratory Results
Magnesium 1.9 mg/dl (1.6-2.3) 06/27/23 05:13
Total Bilirubin 0.9 mg/dl (0.2-1.3) 06/24/23 09:42
AST 37 U/L (17-59) 06/24/23 09:42
ALT 45 U/L (0-50) 06/24/23 09:42
Alkaline Phosphatase 81 U/L (38-126) 06/24/23 09:42
Lipase 91 U/L (23-300) 06/23/23 11:39
Vital Signs and I&O:
Vital Signs
Temp Pulse Resp BP Pulse Ox
98.4 F 74 18 144/69 95
06/27/23 03:37 06/27/23 03:37 06/27/23 03:37 06/27/23 03:37 06/27/23 03:37
I&O
06/25/23 06/26/23 06/27/23
06:59 06:59 06:59
Intake Total 720 / 720 940 / 940 1939
Output Total 300 / 300
Balance 720 / 720 640 / 640 1939
Physical Exam
Physical Exam
General: NAD
Abdomen: normal bowel sounds, soft, no tenderness, no masses or bruits, no ascites
[2023-06-27 07:50] VITALS: BP 139/71
[2023-06-27] MEDS: BACTROBAN 2% OINTMENT 1 APPLIC TOPICAL (08:28)
--- NOTE | 2023-06-27 09:36 | CM ---
Addendum entered by Zulema Gimenez 06/27/23 10:06:
Per PM&R patient to go to SNF at discharge CM will discuss with family and patient.
Original Note:
Patient referral to [facility] sent for review by admissions with Sinan Ferrera. Await response.
[2023-06-27 11:05] VITALS: BP 153/65
[2023-06-27] MEDS: VISBIOME 1 CAP PO (11:07)
[2023-06-27] MEDS: LIPITOR 40 MG PO (11:07)
[2023-06-27] MEDS: THERAGRAN 1 TABLET PO (11:07)
[2023-06-27] MEDS: MYCOSTATIN ORAL SUSPENSION 5 ML PO ×2 (11:07→12:56)
[2023-06-27] MEDS: PROSCAR 5 MG PO (11:07)
[2023-06-27] MEDS: ELIQUIS 5 MG PO (11:07)
[2023-06-27] MEDS: PROTONIX 40 MG PO (11:07)
[2023-06-27 11:58] VITALS: BP 137/59; BP 155/64; PULSE 74
[2023-06-27 12:10] VITALS: BP 137/59; BP 155/64; PULSE 73; O2SAT 93
--- NOTE | 2023-06-27 13:31 | W.PN.HOSP.TC ---
Today's Communication/Plan
-
d/c planning--not back to [facility]
Assessment / Plan
Assessment / Plan
pt is an 83 year old male
Sepsis (fever, leukocytosis,) secondary to hospital acquired pneumonia versus aspiration pneumonia (more likely)--urine legionella and strep negative--cont Vancomycin/cefepime/Flagyl--Hold blood pressure medications due to systolic blood pressure
90--VSE done shows aspiration
Thrombocytosis secondary to infection--improved
Dysphagia likely related to recent CVA/possible esophagitis--History of GERD/hiatal hernia--Dysphagia likely related to CVA however given increased burping, being treated for presumed esophagitis with nystatin swish and swallow--Increase PPI to
Protonix 40 twice daily--apprec GI input, esophagram shows presbyesophagus (abnormal peristalsis)--small meals
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
Large right lower kidney pole mass likely renal cell carcinoma--Outpatient follow-up with urology
Paroxysmal atrial fibrillation-Continue Eliquis
CAD status post CABG
History of mitral valve repair
Moderate tricuspid regurgitation
Essential hypertension-Hold amlodipine, lisinopril
Hyperlipidemia-Continue statin
Peripheral edema-Hold Lasix
Normocytic anemia-Hemoglobin has been relatively stable
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
BPH-Continue finasteride
Anxiety/depression/insomnia-Continue trazodone
History of polio
DNR/DNI
DVT prophylaxis�Eliquis
Anticipated Discharge: 24 - 48 hours
Subjective/Interval History
-
Date of Service: June 27, 2023
pt says that his burping is improving
Objective Data
-
Labs:
Laboratory Results
06/27/23
05:13
WBC 16.7 H
Hgb 9.8 L
Hct 29.1 L
Plt Count 393
Sodium 132 L
Potassium 4.0
Chloride 99
Carbon Dioxide 27
BUN 22 H
Creatinine 0.8
Glucose 123 H
Calcium 8.6
Vital Signs:
max temp for 24 hours
06/27/23
07:50
Temp 98.7 F
Vital Signs
Temp Pulse Resp BP Pulse Ox
97.8 F 66 20 153/65 92
06/27/23 11:05 06/27/23 11:05 06/27/23 11:05 06/27/23 11:05 06/27/23 11:05
I&O
06/26/23 06/27/23 06/28/23
06:59 06:59 06:59
Intake Total 940 / 940 1939
Output Total 300 / 300
Balance 640 / 640 1939
Review of Systems
-
All other systems: Reviewed and negative
Physical Exam
-
General: Well Developed, Well Nourished and No Apparent Distress
HEENT: Normocephalic and Atraumatic
Respiratory: Clear to Auscultation; Negative Wheezes or Rhonchi
Cardiac: Regular Rhythm and S1/S2; Negative Murmur
GI: Soft, Nontender, Nondistended and Normal Bowel Sounds
Musculoskeletal: No Clubbing, No Cyanosis and No Edema
Neuro: Awake
--- NOTE | 2023-06-27 13:49 | CM ---
Addendum entered by Zulema Gimenez 06/27/23 15:26:
Patient nephew given phone number to call for acute care ambulance
Addendum entered by Zulema Gimenez 06/27/23 15:01:
CM spoke wtih patient and nephew, Patient completed IMM and signed form placed on chart. Patient and nephew are in agreement for SNF placement at [facility]. please call report [phone] and fax [phone]. Wheelchair van agreed to by patient
nephew and phone number given to Robin from transportation. transportation documentation given to the cracking unit operator
Addendum entered by Zulema Gimenez 06/27/23 13:57:
CM spoke with patient nephew who confirmed that patient would accept [facility] and await confirmation from Admissions at [facility] of available bed.
Original Note:
Patient seen at bedside with physician. Patient stated that CM should call to patient nephew and update him. CM left for Michael. Patient updated that KATELYNN was now recommending SNF level care at discharge. Patient indicated that he would accept
[facility] but wanted CM to discuss with nephew. CM will send referral continue to try to reach nephew. CM will continue to follow for discharge planning needs.
Plan; SNF
[2023-06-27 15:32] VITALS: BP 140/67
--- NOTE | 2023-06-27 15:50 | W.PN.UPDATE ---
Update Note
Progress Note Update
Barium esophagram was reviewed, showed presbyesophagus, though no obvious stricture or mass. Would continue dietary modifications. Is okay to DC from GI standpoint. Will sign off for now, please call back with any further questions.
--- NOTE | 2023-06-27 16:22 | W.DCSUMMARY ---
Discharge Summary
Discharge Data
Date of Admission: 06/23/23
Date of Discharge: 06/27/23
-
Pending Results: No
Hospital Course
Primary care physician : Camacho Martinez
Principal Discharge diagnosis : Sepsis by criteria secondary to aspiration pneumonia, dysphagia
Chronic Discharge diagnosis : Recent large left stroke with acute petechial hemorrhage and residual dysphagia, large right lower pole kidney mass concerning for renal cell carcinoma, paroxysmal atrial fibrillation, coronary artery disease status
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
secretion, benign prostatic hyperplasia, anxiety/depression/insomnia, history of polio
Hospital Course : Patient was an 83-year-old male recently admitted from June 07 through June 13 for change in mental status and was found to have a large left stroke. Patient was discharged to acute rehab at [facility]. Patient presented from [facility]
rehab with GI issues which include burping, difficulty swallowing, and not interested in eating. Patient was admitted.
Problem #1: Sepsis (by criteria) secondary to aspiration pneumonia. Patient was started on IV fluids and IV antibiotics, which included vancomycin/cefepime/Flagyl. Patient was seen in consultation by speech. Video swallow was done which showed
aspiration. Patient was converted over from IV medications to oral Keflex and doxycycline to complete his course. Unfortunately, if he continues to aspirate there is not much we will be able to do to prevent him from having ongoing pneumonias.
White count has remained elevated throughout his hospitalization.
Problem #2: Dysphagia. Patient was seen in consultation by GI and this was thought to be due to possible esophagitis with his history of reflux and hiatal hernia. He was treated presumptively with nystatin swish and swallow and an increased proton
pump inhibitor to twice daily. Neither of which seem to help much. Esophagram was ordered which showed presbyesophagus but no narrowing or strictures. Patient was instructed to have small frequent meals as opposed to large meals 3 times a day.
By the time of discharge happened, he was tolerating a diet and his burping/reflux was less.
Problem #3: All other medical issues. These include Recent large left stroke with acute petechial hemorrhage and residual dysphagia, large right lower pole kidney mass concerning for renal cell carcinoma, paroxysmal atrial fibrillation, coronary
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
antidiuretic hormone secretion, benign prostatic hyperplasia, anxiety/depression/insomnia, history of polio. These medical issues were stable during his hospitalization. Medications were continued as able. The mass on his kidney was noted the
last admission. He has been instructed to follow-up with urology as an outpatient if so desires.
Plans were to go back to [facility]. However, the physician in charge stated that the patient was not progressing and they were looking at the possibility of a halfway facility. Patient is agreeable to a halfway facility and is stable
for discharge there at this time. If there are any questions regarding this dictation or his hospital stay, please not hesitate to call. Our office number is [phone].
Time for discharge 32 minutes.
Important imaging findings :
ESOPHAGRAM IMPRESSION: Markedly limited exam due to patient condition.
1. 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
2. Mild gastroesophageal reflux.
CT SCAN ABDOMEN/PELVIS IMPRESSION: In the visualized lower lungs posteriorly, mild bronchial wall thickening. Areas of nodular and slightly more confluent parenchymal opacity, similar to examination of August 06, 2022, and probably representing chronic
parenchymal disease, perhaps associated with chronic bronchitis. Slightly enlarged lymph nodes are present in the visualized lower chest, likely reactive
There is a large mass arising from the lower pole of the right kidney, which corresponds to mass seen on recent ultrasound. On recent ultrasound, findings suggestive that this is a solid mass most likely renal cell carcinoma. However, this mass
should be evaluated with imaging prior to and following intravenous contrast administration, with CT scan or MRI.
Trabeculated bladder with multiple diverticula.
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
Discharge Plan
-
Patient Disposition: Senior Living/SNF
Discharge Diagnosis/Procedures: Sepsis due to aspiration pneumonia, thrombocytosis, dysphagia with presbyesophagus, recent large left stroke with acute petechial hemorrhage and residual dysphagia, large right lower pole kidney mass concerning for
renal cell carcinoma, paroxysmal atrial fibrillation, coronary artery disease status post bypass surgery, history of mitral valve repair, moderate tricuspid regurgitation, essential hypertension, hyperlipidemia, anemia of chronic disease, chronic
hyponatremia, benign prostatic hyperplasia, history of polio, anxiety/depression/insomnia
Condition: Fair
Diet: Low Cholesterol and Other diet
Additional Diets: Small frequent meals please avoid 3 large meals per day
Activity: As tolerated
Driving Restrictions: No driving
Bathing Restrictions: None
Referrals:
Camacho Martinez PA-C [Family Provider] - in less than 1 week
Prescriptions:
New
pantoprazole 40 mg Tablet,Delayed Release (Dr/Ec)
40 mg PO BID Qty: 0 0RF
cephalexin 500 mg capsule
500 mg PO Q12H Qty: 10 0RF
Rx Instructions:
take for 5 more days
doxycycline hyclate 100 mg capsule
100 mg PO BID Qty: 10 0RF
Rx Instructions:
take for 5 more days
Continued
Eliquis 5 mg tablet
5 mg PO BID Qty: 60 0RF
Hold Instructions: Resume on 06/16/23.
Rx Instructions:
Resume on 06/16/2023
atorvastatin 40 mg Tablet
40 mg PO DAILY
lisinopril 20 mg Tablet
20 mg PO DAILY
finasteride 5 mg Tablet
5 mg PO DAILY
nystatin 100,000 unit/mL Suspension
5 ml PO QID
acetaminophen 325 mg Tablet
650 mg PO Q6HPRN PRN (Reason: fever)
trazodone 50 mg Tablet
12.5 mg PO HS
prochlorperazine maleate [Compazine] 5 mg Tablet
5 mg PO Q6HPRN PRN (Reason: nausea)
therapeutic multivitamin Tablet
1 tab PO DAILY
amlodipine 5 mg Tablet
5 mg PO QPM
bisacodyl [Dulcolax (bisacodyl)] 10 mg Suppository
10 mg GA HSPRN PRN (Reason: if no bm with oral bisacodyl)
bisacodyl [Dulcolax (bisacodyl)] 5 mg Tablet,Delayed Release (Dr/Ec)
10 mg PO DAILYPRN PRN (Reason: constipation)
mupirocin 2 % Ointment
1 applic TOPICAL TID
Patient Comments:
06/23/2023: apply to right knee/leg area
alum-mag hydroxide-simeth 200-200-20 mg/5 mL Suspension
30 ml PO QIDPRN PRN (Reason: indigestion)
Visbiome 112.5 billion cell Capsule
1 cap PO DAILY
melatonin 10 mg Tablet
10 mg PO HS
furosemide [Lasix] 20 mg tablet
20 mg PO DAILY
Discontinued
omeprazole 20 mg Capsule,Delayed Release(Dr/Ec)
20 mg PO DAILY
acetaminophen 500 mg Tablet
1,000 mg PO Q8HPRN PRN (Reason: mild pain)
Discharge Orders:
Discharge Patient (As Directed); Ordered 06/27/23
Ordered By: Gemini Venegas
Discharge Date and Time
Discharge Date/Time: 06/27/23 16:21
Print Language: BELIZEAN
== END 2023-06-27 16:21 | DRG 871 ==
LOC: 4 EAST ACU 19:23
PROVIDERS: Emergency Medicine; Physician Assistant; ADMITTING PHYSICIAN Hospitalist; ATTENDING PHYSICIAN Internal Medicine; CONSULT PHYSICIAN Internal Medicine Gastroenterology; EMERGENCY PHYSICIAN Emergency Medicine; FAMILY PHYSICIAN Physician Assistant Medical
DX: A41.9 Sepsis, unspecified organism (principal); J69.0 Pneumonitis due to inhalation of food and vomit; I69.351 Hemiplegia and hemiparesis following cerebral infarction affecting right dominant side; E22.2 Syndrome of inappropriate secretion of antidiuretic hormone; C64.1 Malignant neoplasm of right kidney, except renal pelvis; I69.320 Aphasia following cerebral infarction; I48.0 Paroxysmal atrial fibrillation; I25.10 Atherosclerotic heart disease of native coronary artery without angina pectoris; D75.838 Other thrombocytosis; I11.0 Hypertensive heart disease with heart failure; I50.9 Heart failure, unspecified; E78.00 Pure hypercholesterolemia, unspecified; F41.9 Anxiety disorder, unspecified; F32.A Depression, unspecified; Z66 Do not resuscitate; Z95.1 Presence of aortocoronary bypass graft
CPT/HCPCS: 71046; 74177; 74221; 74230; 80048; 80053; 81003; 81015; 83690; 83735; 84484; 85025; 85027; 87040; 87070; 87449; 87899; 92526; 92610; 92611; 93005; 96374; 96375; 97163; 97167; 97535; 99285; Q9967

== ENCOUNTER 2023-10-11 13:40 | Emergency (ER) | payer MEDICARE, BC, SELFPAY ==
[2023-10-11 13:41] VITALS: BP 160/83
--- NOTE | 2023-10-11 15:02 | ED.GENMED ---
History of Present Illness
General
Chief Complaint: Dizziness
Source: patient
Exam Limitations: none
Time Seen by Provider: 10/11/23 14:34
History of Present Illness
History of Present Illness:
83-year-old male presents from home where he lives by himself with complaints of lightheadedness. He describes a foggy sensation. He denies a spinning sensation. He denies a headache chest pain abdominal pain or shortness of breath. He has been
eating and drinking well without urinary symptoms. This is not a new symptom, but has been going on since CVA in June. No unilateral deficit described. No fever. He is accompanied by his nephew who provides most of the history.
Past History
Past History
ED Past Medical History: CAD, GERD, HTN and Valvular disease
ED Past Surgical History: Cardiac (Valve repair. Cardiac bypass) and Other (Hiatal hernia)
Social History
Tobacco: Non-smoker
Employment: Retired
Phy Exam
Physical Exam
Physical Exam:
General: Well-appearing male no acute respiratory distress
HEENT: Normocephalic atraumatic heart: Regular rate and rhythm no murmurs
Lungs: Clear no wheeze or rales
Abdomen is soft nontender nondistended no guarding rebound normal bowel sounds
Extremities: No cyanosis or edema
Skin warm no rash or lesions
Neurologic: Alert oriented to person and place no facial asymmetry. Occasionally has trouble finding words. No drift on exam
Course
Orders/Labs/Results
Orders:
Orders
10/11/23 13:48
ECG [Electrocardiogram (*1)] Urgent
Reason for Study: Vertigo / Dizzy
EKG- Treatment ONCE
10/11/23 14:45
Complete Blood Count/With Diff Urgent
Comprehensive Metabolic Panel Urgent
10/11/23 14:57
Orthostatic VS- Treatment ONCE
Abnormal Lab Results
10/11/23
14:45
WBC 11.3 H 10^3/uL
(4.8-10.8)
RBC 4.35 L 10^6/uL
(4.70-6.10)
Hgb 12.2 L g/dL
(13.0-18.0)
Hct 35.7 L %
(39.0-52.0)
RDW 15.7 H %
(11.5-14.5)
MPV 11.3 H fL
(7.4-10.4)
Absolute Neuts (auto) 8.5 H 10^3/uL
(1.4-6.5)
Absolute Monos (auto) 1.0 H 10^3/uL
(0.1-0.6)
Neutrophils % 75.6 H %
(42.2-75.2)
Lymphocytes % 14.1 L %
(20.5-51.1)
Glucose 154 H mg/dl
(70-99)
10/11/23 14:45
10/11/23 14:45
Vital Signs
Initial and Last Documented VS:
Initial Vital Signs
Temp Pulse Resp BP Pulse Ox
98.2 F 86 18 160/83 95
10/11/23 13:41 10/11/23 13:41 10/11/23 13:41 10/11/23 13:41 10/11/23 13:41
Last Documented Vital Signs
Temp Pulse Resp BP Pulse Ox
98.2 F 63 16 160/83 95
10/11/23 13:41 10/11/23 14:50 10/11/23 14:50 10/11/23 13:41 10/11/23 13:41
MDM/Problems Addressed
Differential Diagnosis Includes:
Generalized weakness and lightheaded. He denies any vertiginous sensation. No unilateral deficit on exam. The symptoms are not new they have been present since his stroke in June. Check labs and orthostatics. EKG shows atrial fibrillation. He
is rate controlled.
*Critical Care Note
Total Time (30-74mins, 75-104mins- exclusive of procedures): Not Applicable
Update Note
Update Note:
Patient reevaluated still appears well nontoxic stable vital signs. Labs reviewed without significant finding. Symptoms have been ongoing since June. None of these are new symptoms. Recommend he follow-up with his rn recovery for further
evaluation.
Rate controlled a-fib on monitor
ED Attending Note
-
Portions of this chart may have been created with voice recognition software.� Occasional wrong word or��sound alike� substitutions may have occurred due to the inherent limitations of voice recognition software.
Discharge Plan
Departure
Patient Disposition: Home (Routine Discharge)
Date of Disposition: 10/11/23
Time of Disposition: 17:27
Patient with high blood pressure during this ER visit?: No
Discharge Problem:
Lightheadedness
Instructions: Dizziness
Prescriptions:
No Action
Eliquis 5 mg tablet
5 mg PO BID Qty: 60 0RF
Rx Instructions:
Resume on 06/16/2023
atorvastatin 40 mg Tablet
40 mg PO DAILY
lisinopril 20 mg Tablet
20 mg PO DAILY
finasteride 5 mg Tablet
5 mg PO DAILY
nystatin 100,000 unit/mL Suspension
5 ml PO QID
acetaminophen 325 mg Tablet
650 mg PO Q6HPRN PRN (Reason: fever)
trazodone 50 mg Tablet
12.5 mg PO HS
prochlorperazine maleate [Compazine] 5 mg Tablet
5 mg PO Q6HPRN PRN (Reason: nausea)
therapeutic multivitamin Tablet
1 tab PO DAILY
amlodipine 5 mg Tablet
5 mg PO QPM
bisacodyl [Dulcolax (bisacodyl)] 10 mg Suppository
10 mg [place] HSPRN PRN (Reason: if no bm with oral bisacodyl)
bisacodyl [Dulcolax (bisacodyl)] 5 mg Tablet,Delayed Release (Dr/Ec)
10 mg PO DAILYPRN PRN (Reason: constipation)
mupirocin 2 % Ointment
1 applic TOPICAL TID
Patient Comments:
06/23/2023: apply to right knee/leg area
alum-mag hydroxide-simeth 200-200-20 mg/5 mL Suspension
30 ml PO QIDPRN PRN (Reason: indigestion)
Visbiome 112.5 billion cell Capsule
1 cap PO DAILY
melatonin 10 mg Tablet
10 mg PO HS
furosemide [Lasix] 20 mg tablet
20 mg PO DAILY
pantoprazole 40 mg Tablet,Delayed Release (Dr/Ec)
40 mg PO BID Qty: 0 0RF
cephalexin 500 mg capsule
500 mg PO Q12H Qty: 10 0RF
Rx Instructions:
take for 5 more days
doxycycline hyclate 100 mg capsule
100 mg PO BID Qty: 10 0RF
Rx Instructions:
take for 5 more days
Referrals:
Camacho Martinez PA-C [Family Provider] -
Activity Restrictions/Additional Instructions:
Please follow up with cardiology for next available appointment. Return if needed otherwise.
Interventions
Interventions:
*Risk Screen - Suicide Last Done: 10/11/23 13:43
*General Assessment Last Done: 10/11/23 13:43
*Neglect/Abuse Screening Last Done: 10/11/23 13:43
ED- Neurological Assessment Last Done: 10/11/23 14:59
ED- Cardiac Assessment Last Done: 10/11/23 15:00
Discharge Date and Time
Print Language: TAJIK
[2023-10-11 15:18] VITALS: BP 149/78; BP 150/67; BP 175/80; PULSE 65; PULSE 80; PULSE 84
[2023-10-11 15:28] LABS: % Basophils 0.3 % (0-2); % Eosinophils 0.9 % (0-6); % Immature Granulocytes 0.2 % (0-0.5); % Lymphocytes 14.1 % (20.5-51.1); % Monocytes 8.9 % (1.7-9.3); % Neutrophils 75.6 % (42.2-75.2); Absolute Eosinophils 0.1 10^3/uL (0-0.7); Absolute Lymphocytes 1.6 10^3/uL (1.2-3.4); Absolute Neutrophils 8.5 10^3/uL (1.4-6.5); Hematocrit 35.7 % (39.0-52.0); Hemoglobin 12.2 g/dL (13.0-18.0); Mean Corp Hgb Conc. 34.2 g/dL (33.0-37.0); Mean Corpuscular Volume 82.1 fL (80.0-94.0); Mean Platelet Volume 11.3 fL (7.4-10.4); Nucleated Red Blood Cells % 0 % (-); Platelet Count 230 10^3/uL (130-400); Red Blood Cell Count 4.35 10^6/uL (4.70-6.10); Red Cell Dist. Width 15.7 % (11.5-14.5); White Blood Cell Count 11.3 10^3/uL (4.8-10.8)
[2023-10-11 15:57] LABS: ALT (SGPT) 15 U/L (0-50); AST (SGOT) 22 U/L (17-59); Albumin 4.2 g/dl (3.5-5.0); Alkaline Phosphatase 69 U/L (38-126); Blood Urea Nitrogen 10 mg/dl (9-20); Calcium 9.5 mg/dl (8.4-10.2); Carbon Dioxide 23 mmol/L (22-30); Chloride 103 mmol/L (98-107); Glucose 154 mg/dl (70-99); Potassium 3.6 mmol/L (3.5-5.1); Sodium 135 mmol/L (135-145); Total Bilirubin 0.7 mg/dl (0.2-1.3); Total Protein 6.8 g/dl (6.3-8.2); eGFR > 60.00
[2023-10-11 17:34] VITALS: BP 135/77
== END 2023-10-11 17:36 | disposition home or self-care (01) ==
LOC: EMR 13:40
PROVIDERS: Physician Assistant; EMERGENCY PHYSICIAN Emergency Medicine; FAMILY PHYSICIAN Physician Assistant Medical
DX: R42 Dizziness and giddiness (principal)
CPT/HCPCS: 99284; 80053; 85025; 93005

== ENCOUNTER 2025-01-06 22:05 | Emergency (ER) | payer MEDICARE, BC, SELFPAY ==
[2025-01-06 22:06] VITALS: BP 141/96
[2025-01-06 22:25] VITALS: BP 158/70
[2025-01-06 22:28] VITALS: BMI 26.7
[2025-01-06] MEDS: NSS 1000 IV (22:36)
[2025-01-06 22:47] LABS: Hematocrit 35.8 % (39.0-52.0); Hemoglobin 12.0 g/dL (13.0-18.0); Mean Corp Hgb Conc. 33.5 g/dL (33.0-37.0); Mean Corpuscular Volume 85.9 fL (80.0-94.0); Nucleated Red Blood Cells % 0 % (-); Platelet Count 161 10^3/uL (130-400); Red Cell Dist. Width 13.6 % (11.5-14.5)
[2025-01-06 23:00] VITALS: BP 139/68
--- NOTE | 2025-01-06 23:03 | ED.GENMED ---
History of Present Illness
General
Chief Complaint: Abdominal Symptoms
Source: patient
Exam Limitations: none
Time Seen by Provider: 01/06/25 23:01
Nursing documentation reviewed up to this point in time: agreed with
History of Present Illness
History of Present Illness:
Note:
CHIEF COMPLAINT(S)
Abdominal bloating and pain.
HISTORY OF PRESENT ILLNESS
The patient is an 84-year-old male with a past medical history significant for atrial fibrillation on anticoagulation therapy, CAD, GERD, prior CVA with expressive aphasia, HLP presents from home today with concerns of abdominal bloating and pain,
which began two days ago. He presents with his nephew.The pain is described as being all over the abdomen and has been constant, without alleviation or worsening since onset. The patient reports associating belching and a sensation of fullness but
denies nausea, vomiting, fever, chills, or indigestion. He reports regular bowel movements with the last one occurring today and denies any blood in his stool. He has not experienced pain radiating to the back or chest, nor any urinary symptoms. The
patient has a history of a hernia repair surgery performed several years ago. He attempted to eat on the day the symptoms began and once again today, and finished meals without any difficulty but is concerned eating worsens his symptoms. He does not
recall recent infection exposure; he lives alone and primarily interacts with family members. He denies any diarrhea.
PAST MEDICAL AND SURGICAL HISTORY
The patient has a history of atrial fibrillation and is currently on anticoagulant therapy. He has recently undergone hernia repair surgery. He denies any history of additional abdominal surgeries, including an appendectomy.
CHART REVIEW
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
Reviewed prior GI notes, patient does have hx of intermittent dysphagia from prior stroke and aerophagia which may contribute to the belching he experienced
MEDICATIONS
The patient reports taking medication for indigestion, as well as anticoagulant therapy (Eliquis) for atrial fibrillation.
REVIEW OF SYSTEMS
- Gastrointestinal: Bloating, abdominal pain, regular bowel movements without melena or hematochezia.
- Systemic: Denies fever, chills, nausea, vomiting.
PHYSICAL EXAM
General: Alert, no acute distress.
Skin: Warm, dry.
Head: Normocephalic, atraumatic.
Neck: Supple, trachea midline.
Eye, Ears, Nose, Mouth, and Throat: Oral mucosa moist.
Cardiovascular: Heart rate irregularly irregular. Normal peripheral perfusion, No edema.
Respiratory: Respirations are non-labored, sating 99% on RA, no wheezes, no crackles.
Gastrointestinal: Abdomen nondistended, minimal left sided tenderness to palpation noted no guarding, normoactive bowel sounds.
Neurological: Alert, oriented to person, place, time, and situation. No focal neurological deficit observed.
Psychiatric: Cooperative, appropriate mood & affect.
PROBLEM LIST
Acute: Abdominal bloating and pain.
PLAN
-Tylenol and zofran for pain and nausea
-CT scan of the abdomen and pelvis with IV contrast
-cbc, cmp, lipase, urinalysis
-screening ecg
DIFFERENTIAL DIAGNOSIS
The Differential Diagnosis includes, in no particular order and is not limited to:
1. Gastritis
2. Diverticulitis
3. Bowel obstruction
4. Recurrence of hernia
5. Gastroesophageal reflux disease
6. Peptic ulcer disease
7. Pancreatitis
8. Gastroenteritis
9. Colitis
10. Hepatobiliary disease
Disposition:
SUMMARY OF ENCOUNTER
84 male presented to the emergency department with abdominal pain over the past two days, accompanied by nausea but no vomiting, fever, or chills. Upon physical examination, he was well-appearing and in no acute distress. The patient was afebrile
with minimal abdominal tenderness observed upon palpation. A CT scan of the abdomen revealed no acute intra-abdominal pathology but identified a right renal mass which was noted on prior scan. In past consultations, patient has seen urology and the
patient had opted not to pursue treatment for the renal mass. On reassessment, patient is well appearing seen sleeping comfortably. Repeat abdominal exam shows no abdominal tenderness to palpation, and stated he felt well enough to go home. Patient
essentially asymptomatic at time of discharge. Laboratory results indicated hyponatremia with a sodium level of 128, previously noted and attributed to Syndrome of Inappropriate Antidiuretic Hormone Secretion (SIADH). Reviewed previous discharge
summaries, no clear instruction for fluid restriction. Discussed strict return precautions with patient and nephew such as chest pain, shortness of breath, abdominal pain, fever, etc.
DISPOSITION
Discharge
ASSESSMENT
Abdominal pain with associated nausea, history of renal mass, hyponatremia secondary to SIADH.
PLAN
- Continue furosemide (Lasix) as his medication regimen
- Repeat serum sodium in an outpatient setting in 48 hours.
- Consider follow-up with nephrology.
- Arrange for a repeat physical examination by the primary care provider within the week.
- Provided strict return precautions to the ER should symptoms worsen.
INDEPENDENT REVIEW OF LABS AND INTERPRETATION OF TESTS
My independent review of the CT scan shows no acute intra-abdominal pathology. Renal mass noted.
My independent review of laboratory results reveals hyponatremia with sodium level 128, consistent with chronic hyponatremia due to SIADH.
PATIENT EDUCATION AND COUNSELING
Education was provided on recognizing worsening symptoms of abdominal pain and instructions on returning to the ER if symptoms escalate.
FOLLOW-UP INSTRUCTIONS
Follow up with primary care provider for a repeat physical examination within the week. Repeat sodium levels in an outpatient setting in 48 hours. Consider a nephrology consultation.
MEDICATION RECONCILIATION
- Continue furosemide (Lasix) as part of the current treatment plan.
MEDICAL DECISION MAKING
- Number and Complexity of Problems Addressed: Chronic conditions affecting care: History of renal mass, hyponatremia due to SIADH.
- Data:
Category 1: My independent interpretation of the CT scan shows no acute intra-abdominal pathology with the incidental finding of a renal mass.
- Risk: Prescription medication management discussed with the continuation of current treatment.
DIAGNOSIS
1. Abdominal pain, unspecified (R10.9)
2. Nausea (R11.0)
3. Renal mass (N28.0, pending further clarification with urology)
4. 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
Past History
Past History
ED Past Medical History: CAD, GERD, HTN and Valvular disease
ED Past Surgical History: Cardiac (Valve repair. Cardiac bypass) and Other (Hiatal hernia)
Social History
Tobacco: Non-smoker
Employment: Retired
Review of Systems
Review of Systems
All Other Systems: ROS reviewed and negative except as documented in HPI and ROS
Phy Exam
Physical Exam
Physical Exam:
see hpi
Course
Orders/Labs/Results
Orders:
Orders
01/06/25 22:35
Complete Blood Count/With Diff Urgent
Comprehensive Metabolic Panel Urgent
Lipase Urgent
Serum Osmolality Urgent
Comment: ADDED
01/06/25 22:36
0.9% Sodium Chloride 1000 ml [Nss] 1,000 ml IV BOLUS
01/06/25 23:22
EKG- Treatment ONCE
Urinalysis Reflex To Culture Urgent
Date Specimen was Collected: 01/07/25
Time Specimen was Collected: 01:34
Acetaminophen [Tylenol] 500 mg PO NOW STA
Ondansetron Injectable [Zofran] 4 mg IV NOW STA
01/06/25 23:43
Osmolality, Random Urine Urgent
Date Specimen was Collected: 01/07/25
Time Specimen was Collected: 01:34
01/07/25 00:02
CT Abd/Pel (IV only)-DH only Urgent
Reason For Exam: diffuse abdominal pain, bloating
01/07/25 01:36
Urine Microscopic Reflex Cult Urgent
Abnormal Lab Results
01/06/25 01/07/25
22:35 01:36
RBC 4.17 L 10^6/uL
(4.70-6.10)
Hgb 12.0 L g/dL
(13.0-18.0)
Hct 35.8 L %
(39.0-52.0)
MPV 11.5 H fL
(7.4-10.4)
Absolute Lymphs (auto) 0.8 L 10^3/uL
(1.2-3.4)
Absolute Monos (auto) 1.2 H 10^3/uL
(0.1-0.6)
Neutrophils % 75.8 H %
(42.2-75.2)
Lymphocytes % 9.6 L %
(20.5-51.1)
Monocytes % 13.8 H %
(1.7-9.3)
Sodium 128 L mmol/L
(135-145)
Glucose 133 H mg/dl
(70-99)
Urine Ketones 2+ A
(Negative)
Ur Occult Blood Reflex 1+ A
(Negative)
Urine Bacteria (Reflex) Few A
(Negative)
Urine Albumin (Reflex) 1+ A
(Neg - Trace)
01/06/25 22:35
01/06/25 22:35
Vital Signs
Initial and Last Documented VS:
Initial Vital Signs
Temp Pulse Resp BP Pulse Ox
98.3 F 84 16 141/96 95
01/06/25 22:06 01/06/25 22:06 01/06/25 22:06 01/06/25 22:06 01/06/25 22:06
Last Documented Vital Signs
Temp Pulse Resp BP Pulse Ox
98.3 F 70 22 128/57 94
01/06/25 22:06 01/07/25 01:45 01/07/25 01:45 01/07/25 01:33 01/07/25 01:45
*Pulse Oximetry
SaO2: 95
Oxygen Mode of Delivery: Room air
Patient hypoxic: no
*Critical Care Note
Total Time (30-74mins, 75-104mins- exclusive of procedures): Not Applicable
ED Attending Note
-
Portions of this chart may have been created with voice recognition software.� Occasional wrong word or��sound alike� substitutions may have occurred due to the inherent limitations of voice recognition software.
Discharge Plan
Departure
Patient Disposition: Home (Routine Discharge)
Date of Disposition: 01/07/25
Time of Disposition: 03:02
Patient with high blood pressure during this ER visit?: Yes
Condition: Good
Discharge Problem:
Abdominal pain, Hyponatremia
Instructions: Hyponatremia, Abdominal Pain, BLOOD PRESSURE
Prescriptions:
No Action
Eliquis 5 mg tablet
5 mg PO BID Qty: 60 0RF
Rx Instructions:
Resume on 06/16/2023
atorvastatin 40 mg Tablet
40 mg PO DAILY
lisinopril 20 mg Tablet
20 mg PO DAILY
finasteride 5 mg Tablet
5 mg PO DAILY
nystatin 100,000 unit/mL Suspension
5 ml PO QID
acetaminophen 325 mg Tablet
650 mg PO Q6HPRN PRN (Reason: fever)
trazodone 50 mg Tablet
12.5 mg PO HS
prochlorperazine maleate [Compazine] 5 mg Tablet
5 mg PO Q6HPRN PRN (Reason: nausea)
therapeutic multivitamin Tablet
1 tab PO DAILY
amlodipine 5 mg Tablet
5 mg PO QPM
bisacodyl [Dulcolax (bisacodyl)] 10 mg Suppository
10 mg [place] HSPRN PRN (Reason: if no bm with oral bisacodyl)
bisacodyl [Dulcolax (bisacodyl)] 5 mg Tablet,Delayed Release (Dr/Ec)
10 mg PO DAILYPRN PRN (Reason: constipation)
mupirocin 2 % Ointment
1 applic TOPICAL TID
Patient Comments:
06/23/2023: apply to right knee/leg area
alum-mag hydroxide-simeth 200-200-20 mg/5 mL Suspension
30 ml PO QIDPRN PRN (Reason: indigestion)
Visbiome 112.5 billion cell Capsule
1 cap PO DAILY
melatonin 10 mg Tablet
10 mg PO HS
furosemide [Lasix] 20 mg tablet
20 mg PO DAILY
pantoprazole 40 mg Tablet,Delayed Release (Dr/Ec)
40 mg PO BID Qty: 0 0RF
cephalexin 500 mg capsule
500 mg PO Q12H Qty: 10 0RF
Rx Instructions:
take for 5 more days
doxycycline hyclate 100 mg capsule
100 mg PO BID Qty: 10 0RF
Rx Instructions:
take for 5 more days
Referrals:
Rodrick Easton DO [Active, Nephrology] - Call in 1-3 days for appt
Camacho Martinez PA-C [Family Provider, Family Practice]
Activity Restrictions/Additional Instructions:
You were given a lab slip, please have sodium repeated in 48-72 hours.
Please continue to monitor your symptoms.
PLEASE RETURN TO THE ER SHOULD YOU DEVELOP CHEST PAIN, INTRACTABLE NAUSEA OR VOMITING, FEVERS OR CHILLS, SHORTNESS OF BREATH, LIGHTHEADEDNESS, DIZZINESS, OR ANY OTHER SIGNS OR SYMPTOMS WORRISOME TO YOU.
Interventions
Interventions:
*Risk Screen - Suicide Last Done: 01/06/25 22:06
*General Assessment Last Done: 01/06/25 22:06
*Neglect/Abuse Screening Last Done: 01/06/25 22:06
*ED- Fall Risk Assessment Last Done: 01/06/25 22:06
*ED COVID-19 Vaccine History Last Done: 01/06/25 22:06
*ED Influenza Vaccine History Last Done: 01/06/25 22:06
*Nursing Disposition Last Done: 01/07/25 03:30
[id number] Assessment Last Done: 01/06/25 22:29
Discharge Date and Time
Discharge Date/Time: 01/07/25 03:30
Print Language: WELSH
[2025-01-06 23:25] LABS: ALT (SGPT) 16 U/L (0-50); AST (SGOT) 21 U/L (17-59); Albumin 4.0 g/dl (3.5-5.0); Alkaline Phosphatase 73 U/L (38-126); Blood Urea Nitrogen 17 mg/dl (9-20); Calcium 9.0 mg/dl (8.4-10.2); Carbon Dioxide 23 mmol/L (22-30); Chloride 98 mmol/L (98-107); Estimated Creatinine Clearance 63 ml/min; Glucose 133 mg/dl (70-99); Lipase 58 U/L (23-300); Potassium 4.2 mmol/L (3.5-5.1); Sodium 128 mmol/L (135-145); Total Protein 6.8 g/dl (6.3-8.2); eGFR > 60.00
[2025-01-06] MEDS: TYLENOL 500 MG PO (23:50)
[2025-01-06] MEDS: ZOFRAN 4 MG IV (23:51)
[2025-01-07 00:05] VITALS: BP 157/71
[2025-01-07 01:33] VITALS: BP 128/57
[2025-01-07 01:44] LABS: Urine Character Clear (Clear)
[2025-01-07 02:45] LABS: Urine Red Blood Cell 0-2 /HPF (0-2); Urine White Cell 0-2 /HPF (0-5)
== END 2025-01-07 03:30 | disposition home or self-care (01) ==
LOC: EMR 22:05
PROVIDERS: Emergency Medicine; Physician Assistant; EMERGENCY PHYSICIAN Student in an Organized Health Care Education/Training Program; FAMILY PHYSICIAN Physician Assistant Medical
DX: R10.9 Unspecified abdominal pain (principal); E22.2 Syndrome of inappropriate secretion of antidiuretic hormone; I10 Essential (primary) hypertension; I25.10 Atherosclerotic heart disease of native coronary artery without angina pectoris; I48.91 Unspecified atrial fibrillation; E78.00 Pure hypercholesterolemia, unspecified; I69.391 Dysphagia following cerebral infarction; Z79.01 Long term (current) use of anticoagulants; Z87.01 Personal history of pneumonia (recurrent)
CPT/HCPCS: 99284; 96374; 96361; 74177; 80053; 81003; 81015; 83690; 83930; 83935; 85025; Q9967

== ENCOUNTER 2025-01-08 22:34 | Inpatient (IN) | payer MEDICARE, BC, SELFPAY ==
[2025-01-08 13:37] VITALS: BP 129/60
--- NOTE | 2025-01-08 17:05 | ED.GENMED ---
History of Present Illness
<Edwin Whiting PA-C - Last Filed: 01/08/25 20:16>
General
Chief Complaint: Abdominal Symptoms
Source: patient
Exam Limitations: none
Time Seen by Provider: 01/08/25 16:45
History of Present Illness
History of Present Illness:
84-year-old male presents for reevaluation for increased abdominal discomfort and bloating. He notes he is belching significantly. He has a history of a renal mass. He has a history of SIADH. He is not certain when his last bowel movement was.
He had a hernia repair in the past but does not recall any other surgeries. He has been urinating. No fevers. No chest pain or shortness of breath. He was here 2 days ago for similar symptoms a CT scan was performed at that time which showed a
known renal mass but no other acute finding. Of note, his sodium was 128 2 days ago. His nephew who accompanies him states that he is very somewhat in a cognitive fog. He lives by himself. Seems to be worse than usual.
Past History
<Edwin Whiting PA-C - Last Filed: 01/08/25 20:16>
Past History
ED Past Medical History: CAD, GERD, HTN and Valvular disease
ED Past Surgical History: Cardiac (Valve repair. Cardiac bypass) and Other (Hiatal hernia)
Social History
Tobacco: Non-smoker
Employment: Retired
Phy Exam
<KUMAR Alcala Last Filed: 01/08/25 20:16>
Physical Exam
Physical Exam:
General: Well-appearing male no acute respiratory distress
HEENT normal cephalic atraumatic
Heart: Regular rate and rhythm
Lungs: Clear no wheeze
Abdomen is soft but distended and slightly tender to the touch
Extremities: No cyanosis
Course
<KUMAR Alcala Last Filed: 01/08/25 20:16>
Orders/Labs/Results
Orders:
Orders
01/08/25 17:02
CT Abd/pelvis W Iv Cont Urgent
Comment:
Reason For Exam: pain, distention
Bladder Scan- Treatment ONCE
01/08/25 17:07
Complete Blood Count/With Diff Urgent
Comprehensive Metabolic Panel Urgent
Abnormal Lab Results
01/08/25
17:07
RBC 4.30 L 10^6/uL
(4.70-6.10)
Hgb 12.2 L g/dL
(13.0-18.0)
Hct 37.6 L %
(39.0-52.0)
MCHC 32.4 L g/dL
(33.0-37.0)
MPV 11.1 H fL
(7.4-10.4)
Absolute Lymphs (auto) 0.9 L 10^3/uL
(1.2-3.4)
Absolute Monos (auto) 1.4 H 10^3/uL
(0.1-0.6)
Lymphocytes % 10.1 L %
(20.5-51.1)
Monocytes % 15.6 H %
(1.7-9.3)
Sodium 125 L mmol/L
(135-145)
Chloride 96 L mmol/L
(98-107)
Glucose 104 H mg/dl
(70-99)
01/08/25 17:07
01/08/25 17:07
Vital Signs
Initial and Last Documented VS:
Initial Vital Signs
Temp Pulse Resp BP Pulse Ox
98.5 F 76 16 129/60 96
01/08/25 13:37 01/08/25 13:37 01/08/25 13:37 01/08/25 13:37 01/08/25 13:37
Last Documented Vital Signs
Temp Pulse Resp BP Pulse Ox
98.5 F 76 16 129/60 96
01/08/25 13:37 01/08/25 13:37 01/08/25 13:37 01/08/25 13:37 01/08/25 17:07
<Celestino Blackburn Lobito, DO - Last Filed: 01/08/25 20:02>
Orders/Labs/Results
Orders:
Orders
01/08/25 17:02
CT Abd/pelvis W Iv Cont Urgent
Comment:
Reason For Exam: pain, distention
Bladder Scan- Treatment ONCE
01/08/25 17:07
Complete Blood Count/With Diff Urgent
Comprehensive Metabolic Panel Urgent
Abnormal Lab Results
01/08/25
17:07
RBC 4.30 L 10^6/uL
(4.70-6.10)
Hgb 12.2 L g/dL
(13.0-18.0)
Hct 37.6 L %
(39.0-52.0)
MCHC 32.4 L g/dL
(33.0-37.0)
MPV 11.1 H fL
(7.4-10.4)
Absolute Lymphs (auto) 0.9 L 10^3/uL
(1.2-3.4)
Absolute Monos (auto) 1.4 H 10^3/uL
(0.1-0.6)
Lymphocytes % 10.1 L %
(20.5-51.1)
Monocytes % 15.6 H %
(1.7-9.3)
Sodium 125 L mmol/L
(135-145)
Chloride 96 L mmol/L
(98-107)
Glucose 104 H mg/dl
(70-99)
01/08/25 17:07
10/21/25 17:07
Vital Signs
Initial and Last Documented VS:
Initial Vital Signs
Temp Pulse Resp BP Pulse Ox
98.5 F 76 16 129/60 96
01/08/25 13:37 01/08/25 13:37 01/08/25 13:37 01/08/25 13:37 01/08/25 13:37
Last Documented Vital Signs
Temp Pulse Resp BP Pulse Ox
98.5 F 76 16 129/60 96
01/08/25 13:37 01/08/25 13:37 01/08/25 13:37 01/08/25 13:37 01/08/25 17:07
<Edwin Whiting PA-C - Last Filed: 01/08/25 20:16>
MDM/Problems Addressed
Differential Diagnosis Includes:
Patient with more abdominal distention bloating and discomfort. Reviewed workup from 2 days ago which showed nonacute CT. Sodium was 128 2 days ago will recheck sodium today. Given the worsening symptoms we will redo another CAT scan today to
evaluate for bowel obstruction diverticulitis etc.
<Edwin Whiting PA-C - Last Filed: 01/08/25 20:16>
*Pulse Oximetry
SaO2: 96
Oxygen Mode of Delivery: Room air
Patient hypoxic: no
*Critical Care Note
Total Time (30-74mins, 75-104mins- exclusive of procedures): Not Applicable
<Edwin Whiting PA-C - Last Filed: 01/08/25 20:16>
Update Note
Update Note:
Sodium today is 125. Patient states he has not been under any type of fluid restriction. CT of the abdomen today shows no change from the last one 2 days ago. Known renal mass and metastasis to the lung. Long discussion had with patient and
nephew regarding options. Patient lives by himself and has not been himself. Question involvement of sodium. Will keep in hospital for further evaluation of hyponatremia
ED Attending Note
<Edwin Whiting PA-C - Last Filed: 01/08/25 20:16>
-
Portions of this chart may have been created with voice recognition software.� Occasional wrong word or��sound alike� substitutions may have occurred due to the inherent limitations of voice recognition software.
<Celestino Robin DO - Last Filed: 01/08/25 20:02>
ED Attending Note
Patient seen and examined by attending physician: Yes
I performed the substantive portion of visit, reviewed & personally made and approve the management plan that is documented in note by myself or NAHID.: Yes
ED Attending Note:
I evaluated patient bedside. The patient's sodium is down to 125. Although he was family here with abdominal discomfort/bloating, son at bedside is overall concerned. His sodium the other day was closer to normal at 128. I am concerned that if
he be discharged again the sodium could worsen. He is not aware of any fluid restriction.
Discharge Plan
Departure
Patient Disposition: Admit
Date of Disposition: 01/08/25
Time of Disposition: 20:12
Presentation/result/management discussed w/ accepting MD/DO: Hospitalist
Discharge Problem:
Acute hyponatremia
Prescriptions:
No Action
Eliquis 5 mg tablet
5 mg PO BID Qty: 60 0RF
Rx Instructions:
Resume on 06/16/2023
atorvastatin 40 mg Tablet
40 mg PO DAILY
lisinopril 20 mg Tablet
20 mg PO DAILY
finasteride 5 mg Tablet
5 mg PO DAILY
nystatin 100,000 unit/mL Suspension
5 ml PO QID
acetaminophen 325 mg Tablet
650 mg PO Q6HPRN PRN (Reason: fever)
trazodone 50 mg Tablet
12.5 mg PO HS
prochlorperazine maleate [Compazine] 5 mg Tablet
5 mg PO Q6HPRN PRN (Reason: nausea)
therapeutic multivitamin Tablet
1 tab PO DAILY
amlodipine 5 mg Tablet
5 mg PO QPM
bisacodyl [Dulcolax (bisacodyl)] 10 mg Suppository
10 mg WV HSPRN PRN (Reason: if no bm with oral bisacodyl)
bisacodyl [Dulcolax (bisacodyl)] 5 mg Tablet,Delayed Release (Dr/Ec)
10 mg PO DAILYPRN PRN (Reason: constipation)
mupirocin 2 % Ointment
1 applic TOPICAL TID
Patient Comments:
06/23/2023: apply to right knee/leg area
alum-mag hydroxide-simeth 200-200-20 mg/5 mL Suspension
30 ml PO QIDPRN PRN (Reason: indigestion)
Visbiome 112.5 billion cell Capsule
1 cap PO DAILY
melatonin 10 mg Tablet
10 mg PO HS
furosemide [Lasix] 20 mg tablet
20 mg PO DAILY
pantoprazole 40 mg Tablet,Delayed Release (Dr/Ec)
40 mg PO BID Qty: 0 0RF
cephalexin 500 mg capsule
500 mg PO Q12H Qty: 10 0RF
Rx Instructions:
take for 5 more days
doxycycline hyclate 100 mg capsule
100 mg PO BID Qty: 10 0RF
Rx Instructions:
take for 5 more days
Referrals:
Camacho Martinez PA-C [Family Provider, Family Practice]
Interventions
Interventions:
*Risk Screen - Suicide Last Done: 01/08/25 13:38
*General Assessment Last Done: 01/08/25 17:23
*Neglect/Abuse Screening Last Done: 01/08/25 13:38
*ED- Fall Risk Assessment Last Done: 01/08/25 16:25
*ED COVID-19 Vaccine History Last Done: 01/08/25 16:25
*ED Influenza Vaccine History Last Done: 01/08/25 16:25
BP-Xviqne-Gcpfsmfhzd Assessment Last Done: 01/08/25 16:25
Discharge Date and Time
Print Language: GERMAN
[2025-01-08 17:07] VITALS: BMI 30.1
[2025-01-08 17:29] LABS: Hematocrit 37.6 % (39.0-52.0); Hemoglobin 12.2 g/dL (13.0-18.0); Mean Corp Hgb Conc. 32.4 g/dL (33.0-37.0); Mean Corpuscular Volume 87.4 fL (80.0-94.0); Nucleated Red Blood Cells % 0 % (-); Platelet Count 171 10^3/uL (130-400); Red Cell Dist. Width 13.8 % (11.5-14.5)
[2025-01-08 17:44] LABS: ALT (SGPT) 19 U/L (0-50); AST (SGOT) 29 U/L (17-59); Albumin 3.6 g/dl (3.5-5.0); Alkaline Phosphatase 57 U/L (38-126); Blood Urea Nitrogen 18 mg/dl (9-20); Calcium 8.4 mg/dl (8.4-10.2); Carbon Dioxide 25 mmol/L (22-30); Chloride 96 mmol/L (98-107); Estimated Creatinine Clearance 63 ml/min; Glucose 104 mg/dl (70-99); Potassium 3.9 mmol/L (3.5-5.1); Sodium 125 mmol/L (135-145); Total Protein 6.4 g/dl (6.3-8.2); eGFR > 60.00
[2025-01-08] MEDS: PEPCID 20 MG IV (20:26)
--- NOTE | 2025-01-08 21:19 | HPS.HSE ---
Addendum entered and electronically signed by Venkatesh Bass DO 01/08/25 22:28:
Patient seen and examined independently. Agree with findings and plan as set forth by LAVERN Arevalo.
Patient is an 84y M with [facility] significant for renal cell carcinoma with pulmonary metastasis who presents to ED complaining of abdominal distention and generalized weakness. Patient states that he has not eaten in about 3 days due to abdominal
discomfort. He states that he has been moving his bowels / passing gas. He denies any N/V/D.
Patient is not receiving any treatment for his renal cell carcinoma and is not interested in any active treatment. He is amenable to Hospice evaluation.
Ass:
Abdominal Distention
Chronic Hyponatremia / SIADH
Metastatic Renal Cell Carcinoma
Benign Hypertension
Paroxysmal Atrial Fibrillation
GERD
ASCVD
BPH
Plan:
Admit for further evaluation and treatment.
Bowel regimen - monitor for any changes in abdominal symptoms.
Na levels are not significantly changed from his baseline.
SIADH due to underlying malignancy with pulmonary metastasis.
Fluid restrict and follow for changes.
Patient is amenable to Hospice evaluation given metastatic RCC with no desire for active treatment.
Continue usual med regimen pending Hospice consultation.
Original Note:
Family Physician
-
Family Physician: Camacho Martinez PA-C
Chief Complaint
-
fatigue and abdominal bloating
History of Present Illness
Patient is a [id number]-higs with past medical history significant for hypertension, hyperlipidemia, CAD, atrial fibrillation, hyponatremia, GERD and suspected metastatic renal cancer who presented to [facility] ED for evaluation of fatigue and abdominal
bloating. Patient is pleasantly confused with nephew/POA at bedside who assisted with HPI. Patient has c/o of bloating for the passt 2-3 days, he also has been more fatigued than usual. Denies any fever, chills, cough, chest pain, shortness of
breath, nausea, vomiting, constipation, diarrhea or urinary symptoms.
Medical History
Past Medical History
Past Medical History: Reports Other
Additional Past Medical History:
atrial fibrillation on Eliquis
mitral valve repair
CAD status post CABG
hypertension
hyperlipidemia
recent CVA
peripheral edema
anemia
hyponatremia
GERD
BPH
polio
right renal mass
anxiety/depression/insomnia
Past Surgical History: Reports Other
Additional Past Surgical History:
mitral valve repair
cardiac bypass surgery
bilateral cataract surgery
Social History
Tobacco: Non-smoker
Alcohol: None
Drug: None
Living: Alone
Family History
Family History: Not pertinent
Allergies / Home Medications
Allergies reflects when Allergies were last updated in [employer].
Home Medications with original date entered in [employer]
Allergy/Medication List:
Allergies
Allergy/AdvReac Type Severity Reaction Status Date / Time
No Known Allergies Allergy Verified 01/06/25 22:11
Home Medications
apixaban 5 mg tablet (Eliquis) 5 mg PO BID #60 tabs 07/21/22
atorvastatin 40 mg tablet 40 mg PO HS High Cholesterol 06/08/23
finasteride 5 mg tablet 5 mg PO DAILY Urinary Issue 06/08/23
lisinopril 20 mg tablet 20 mg PO DAILY Blood Pressure 06/08/23
amlodipine 5 mg tablet 5 mg PO DAILY Blood Pressure 06/23/23
melatonin 10 mg tablet 10 mg PO HS PRN Sleep 06/23/23
furosemide 20 mg tablet (Lasix) 20 mg PO DAILY Fluid Retention/Swelling 06/24/23
pantoprazole 40 mg tablet,delayed release 40 mg PO BID #0 tabs 06/27/23
Review of Systems
-
History Source: Patient
Constitutional: Reports Fatigue; Denies Fever or Chills
EENT: Denies Sore Throat
Respiratory: Denies Cough, Hemoptysis or Trouble Breathing
Cardiac: Denies Chest Pain, Diaphoresis, Palpitations or Syncope
Abdomen/GI: Reports Other (no appetite and abdominal bloating ); Denies Abdominal Pain, Nausea, Vomiting or Diarrhea
: Denies Dysuria, Frequency or Urgency
Musculoskeletal: Denies Joint Pain or Joint Swelling
Skin: Denies Rash
Neurological: Denies Dizzy, Headache, Weakness or Numbness
Endocrine: Denies Polyuria or Polydipsia
Hematologic/Lymphatic: Denies Bleeding
Physical Exam
Vital Signs
Vital Signs
Temp Pulse Resp BP Pulse Ox
98.5 F 76 16 129/60 96
01/08/25 13:37 01/08/25 13:37 01/08/25 13:37 01/08/25 13:37 01/08/25 17:07
Physical Exam
General: Well Developed, Well Nourished, No Apparent Distress, Comfortable, Conversant and Obese
HEENT: NormoCephalic, Moist mucous membranes, PERRLA, Nose Appears Normal and Ears Appear Normal
Respiratory: Clear, Non Labored Respirations and Decreased Breath Sounds; No Wheezes
Cardiac: S1/S2 and Regular Rhythm; No Murmur
GI: Soft, Non Tender, Normal Bowel Sounds and Distended (mildly distended )
Musculoskeletal: No No Clubbing, No Cyanosis or No Edema
Skin: No IV/Catheter Site
Neuro: Awake and Alert
Hematologic/Lymphatic: No Lymphadenopathy
Psych: Calm
Laboratory Results
-
01/08/25 17:07
01/08/25 17:07
Laboratory Results
Total Bilirubin 1.3 mg/dl (0.2-1.3) 01/08/25 17:07
AST 29 U/L (17-59) 01/08/25 17:07
ALT 19 U/L (0-50) 01/08/25 17:07
Alkaline Phosphatase 57 U/L (38-126) 01/08/25 17:07
Data Reviewed
-
CT Scan: Report Reviewed by me (Abd/Pel: 1. LARGE 7.3 cm RIGHT RENAL CELL CARCINOMA. 2. Moderate passive hepatic venous congestion in the liver. 3. Moderate gallbladder distention. 4. Mild intrahepatic biliary dilatation. 5. Previous
hiatal hernia repair. 6. 2.0 cm infrarenal abdominal aortic saccular aneurysm which ap)
Lab Data: Labs Reviewed by me (Na+ 125, serum osmo 271, )
Impression/Plan
-
IMPRESSION/PLAN:
#hyponatremia
Na+ 125, serum osmo 271
Abd/Pel CT: 1. LARGE 7.3 cm RIGHT RENAL CELL CARCINOMA.
2. Moderate passive hepatic venous congestion in the liver.
3. Moderate gallbladder distention.
4. Mild intrahepatic biliary dilatation.
5. Previous hiatal hernia repair.
6. 2.0 cm infrarenal abdominal aortic saccular aneurysm which appears unchanged.
7. Minimal ascites.
8. Severe diverticulosis in the sigmoid colon.
9. 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
10. Moderately enlarged prostate gland.
11. 8 mm RIGHT LOWER LOBE PULMONARY METASTASIS.
12. Mild cardiomegaly with suggestion of right heart failure.
13. Severe multilevel lumbar discogenic degenerative disease.
- Admit to telemetry
- fluid restriction
- monitor BMP
- hold furosemide
#suspected metastatic renal cancer
patient declines any further workup
Nephew/POA open to discussion with hospice team
- Consult hospice
#hypertension
- continue amlodipine and lisinopril
- Hold furosemide
#hyperlipidemia
- continue atorvastatin
#atrial fibrillation
- continue Eliquis
#GERD
- continue pantoprazole
Code status: DNR
DVT prophylaxis: Eliquis
[2025-01-08 22:15] VITALS: BP 124/64
[2025-01-08 22:28] LABS: Urine Character Clear (Clear)
[2025-01-08 22:48] LABS: Urine Red Blood Cell 0-2 /HPF (0-2); Urine Squamous Cell 0-2 /LPF (Few); Urine White Cell 0-2 /HPF (0-5)
[2025-01-08 23:00] VITALS: BP 117/62
[2025-01-08 23:50] VITALS: BP 112/83; BMI 26.9
[2025-01-09 00:32] VITALS: BMI 26.9
--- NOTE | 2025-01-09 02:36 | DOWNTIME ---
There was a [employer] Downtime on 01/09/2025 from 0100 to 01/09/2025 at 0215. Downtime documentation of patient's care, including medication administrations, has been reconciled in the electronic record per guidelines. Refer to the
patient's paper chart under the miscellaneous tab to see printed paper medication records and downtime forms.
--- NOTE | 2025-01-09 02:37 | PTCARENOTE ---
Patient received from ED via stretcher. Patient ambulated into room with assistance, unsteady gait noted. Bed alarm placed on bed. Patient confused at times. Fall precautions and room safety reviewed with patient. Patient denies any pain, vitals
WNL. Call ralph with in reach. Will continue to monitor.
[2025-01-09 03:00] VITALS: BP 95/38
[2025-01-09 06:03] VITALS: BMI 27.4
[2025-01-09 06:55] LABS: Blood Urea Nitrogen 16 mg/dl (9-20); Calcium 8.2 mg/dl (8.4-10.2); Carbon Dioxide 25 mmol/L (22-30); Chloride 102 mmol/L (98-107); Estimated Creatinine Clearance 63 ml/min; Glucose 99 mg/dl (70-99); Potassium 3.7 mmol/L (3.5-5.1); Sodium 131 mmol/L (135-145); eGFR > 60.00
--- NOTE | 2025-01-09 07:33 | W.PN.HOSP.TC ---
Addendum entered and electronically signed by Yamil Sun MD 01/09/25 16:40:
Seen and examined the patient. Agree with the plan set forth by the resident. See changes in my documentation.
84 y/o male with RCC with mets with abdominal pain. Poor po intake.
CT abdomen pelvis-large 7.3 cm right renal cell carcinoma. Moderate to passive hepatic venous congestion in the liver. Moderate gallbladder distention. Mild intrahepatic biliary dilatation.2.0 cm infrarenal abdominal aortic saccular aneurysm
which appears unchanged. Minimal ascites.Severe diverticulosis in the sigmoid colon. Chronic urinary bladder outlet obstruction with multiple diverticula.Moderately enlarged prostate gland.8 mm RIGHT LOWER LOBE PULMONARY METASTASIS.Mild cardiomegaly
with suggestion of right heart failure. Severe multilevel lumbar discogenic degenerative disease.
Pt says abdomen feels great
No pain.
CVS: S1-S2 normal, sm at apex and RHB
Chest: CTA B/L
Abdomen: Soft, NT / Bowel sounds present
Extremities: No edema
# Abdominal pain and distension-likely secondary to malignancy and hepatic congestion. Patient feels much better now
# Hyponatremia , SIADH physiology-fluid restriction. Sodium is better. Give 1 extra dose of Lasix
# Metastatic RCC-patient wants hospice
# Persistent atrial fibrillation-not on any rate controlling agents. On Eliquis
# Coronary artery disease-history of CABG at [facility] 2002-patient has been on Eliquis, statin,lisinopril
# Chronic HFpEF-additional dose of Lasix given hyponatremia. Continue Lasix
# History of mitral valve repair in 2002
# Moderate TR
# Hypertension-was on amlodipine, lisinopril as outpatient
# Hyperlipidemia-was on statin as outpatient
# Enlarged prostate-was on finasteride as outpatient
# History of CVA-continue Eliquis. May stop once patient goes on hospice
# GERD/HH-continue PPI
# Diverticulosis
# Severe multilevel lumbar discogenic degenerative changes
# 2.0 cm infrarenal AAA
# Ambulatory dysfunction/history of polio
# DVT prophylaxis-Eliquis
# DNR
Our team discussed with the patient's nephew. Once hospice
We discussed with hospice team
Plan is for the patient to go on hospice to home tomorrow
Time spent more than 50 minutes today
Part of this note was created using voice recognition system. Occasional wrong word or��sound alike� substitutions may have inadvertently occurred due to the inherent limitations of voice recognition software. If noted kindly bring it to my
attention for correction.
Original Note:
Today's Communication/Plan
-
Fluid restriction 48 oz
Lasix 40 mg IV once
Trend BMP
Call family to clarify plan of hospice
Assessment / Plan
Assessment / Plan
Assessment:
This is a 84-year-old male with a past medical history of renal cell carcinoma with pulmonary metastasis, atrial fibrillation, CAD s/p CABG, hypertension, hyperlipidemia and GERD who presented to the ED with abdominal bloating. Patient states that
he has had decreased appetite for 4 days due to abdominal discomfort and bloating. He also states he has been feeling progressively fatigued recently. He denies nausea, vomiting, diarrhea, fever, chills or any other symptoms. Patient is passing
flatus. Patient is not receiving any treatment for his cancer, and denies further workup for the same. Patient and family are open to hospice evaluation. Labs indicated hyponatremia at the time of ED arrival (Na 125).
CT abdomen 01/08/2025:
1. LARGE 7.3 cm RIGHT RENAL CELL CARCINOMA.
2. Moderate passive hepatic venous congestion in the liver.
3. Moderate gallbladder distention.
4. Mild intrahepatic biliary dilatation.
5. Previous hiatal hernia repair.
6. 2.0 cm infrarenal abdominal aortic saccular aneurysm which appears unchanged.
7. Minimal ascites.
8. Severe diverticulosis in the sigmoid colon.
9. 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
10. Moderately enlarged prostate gland.
11. 8 mm RIGHT LOWER LOBE PULMONARY METASTASIS.
12. Mild cardiomegaly with suggestion of right heart failure.
13. Severe multilevel lumbar discogenic degenerative disease.
Plan:
# Hyponatremia
- Na 131 01/09/2025, improved from 125 01/08/2025
- Serum osmolality 271, urine osmolality 656, urine Na 40-hypoosmolar hyponatremia with active ADH, likely SIADH
- Fluid restriction: 48 oz
- Lasix 40 mg IV today
- Continue to monitor, trend BMP
# Renal cell carcinoma with possible pulmonary metastasis
- CT abdomen as above
- Patient declining further workup; not on current treatment
- Family (nephew/POA) stated they are open to hospice discussion
- Hospice has been consulted. Patient denying hospice and stating he feels fine, and 'does not know what that is.' Will call Nephew to clarify plan.
# Hypertension
- Continue amlodipine 5 mg p.o. daily and lisinopril 20 mg p.o. daily
# Hyperlipidemia
- Continue atorvastatin 40 mg at bedtime
# Atrial fibrillation
- Continue Eliquis 5 mg BID
# GERD
- Continue pantoprazole
Anticipated Discharge: 24 - 48 hours
Subjective/Interval History
-
Date of Service: January 09, 2025
Patient evaluated at bedside. He states his abdominal bloating and discomfort have improved compared to when he arrived in the ED. He has been having progressive fatigue recently, but does not want any treatment for his renal cell cancer. No
other complaints.
Objective Data
-
Labs:
Laboratory Results
01/09/25
06:07
Sodium 131 L
Potassium 3.7
Chloride 102
Carbon Dioxide 25
BUN 16
Creatinine 0.8
Glucose 99
Calcium 8.2 L
Vital Signs:
Vital Signs
Temp Pulse Resp BP Pulse Ox
99.4 F 60 16 95/38 95
01/09/25 03:00 01/09/25 03:00 01/09/25 03:00 01/09/25 03:00 01/09/25 03:00
Review of Systems
-
History Source: Patient
All other systems: Reviewed and negative
Constitutional: Reports Fatigue
EENT: Reports No Symptoms Reported
Respiratory: Reports No Symptoms
Cardiac: Reports No Symptoms
Abdomen/GI: Reports No Symptoms
Breast: Reports No Symptoms
Genitourinary: Reports No Symptoms
Musculoskeletal: Reports No Symptoms
Skin: Reports No Symptoms
Neuro: Reports No Symptoms
Physical Exam
-
General: Well Developed, Well Nourished, No Apparent Distress, Comfortable and Conversant
HEENT: Normocephalic, Atraumatic and Moist Mucous Membranes
Respiratory: Clear to Auscultation
Cardiac: Regular Rhythm and S1/S2
GI: Soft, Nontender, Nondistended and Normal Bowel Sounds
Musculoskeletal: No Clubbing, No Cyanosis and No Edema
Skin: Warm
Neuro: Awake and AO x 3
Psych: Calm
Data Reviewed
-
CT Scan: Report Reviewed by me, Discussed with Physician and Discussed with Patient
Labs: Labs Reviewed by me and Discussed with Physician
Old Records: Reviewed
[2025-01-09 08:01] VITALS: BP 128/63
[2025-01-09] MEDS: MIRALAX 17 GRAMS PO (08:13)
[2025-01-09] MEDS: PROSCAR 5 MG PO (08:13)
[2025-01-09] MEDS: ZESTRIL 20 MG PO (08:13)
[2025-01-09] MEDS: ELIQUIS 5 MG PO ×2 (08:13→21:27)
[2025-01-09] MEDS: NORVASC 5 MG PO (08:13)
[2025-01-09] MEDS: PROTONIX 40 MG PO ×2 (08:13→21:27)
[2025-01-09 11:14] VITALS: BP 134/63
[2025-01-09] MEDS: LASIX 40 MG IV (11:50)
--- NOTE | 2025-01-09 13:17 | HOSPNOTE ---
Spoke with nephew at length about hospice and the philosophy. The plan is for patient to be discharged tomorrow to home at 11am tomorrow the nephew will drive patient home. Once patient is home we will admit onto hospice services. The nephew will be
hiring caregivers back from [facility] home care when needed. CM and Attending aware of plan.
--- NOTE | 2025-01-09 13:30 | CM ---
Patient seen at bedside
IA completed
dx: hyponatremia
PMH: renal cell carcinoma with pulmonary metastasis
Lives alone in 1 story home, [address]
PLOF: independent with cane/walker
DME: Walker, cane
denies vn/has been at [facility] in past
pcp: Camacho Martinez
Pharmacy: [facility]
CM consult completed-hospice consult
tt Aide Molina, referral entered in [facility]
Per Aide she states that patient will be picked up tomorrow at 11am by Nephew - home with hospice
PLAN: home with hospice tomorrow 01/10
nephew will transport at 11am
[2025-01-09 15:26] VITALS: BP 135/80
[2025-01-09 19:45] VITALS: BP 118/64
[2025-01-09] MEDS: LIPITOR 40 MG PO (21:26)
[2025-01-09] MEDS: SENOKOT 17.2 MG PO (21:27)
[2025-01-09 23:27] VITALS: BP 127/69
[2025-01-10 03:40] VITALS: BP 122/64
[2025-01-10 07:38] VITALS: BP 119/52
[2025-01-10] MEDS: ZESTRIL 20 MG PO (08:29)
[2025-01-10] MEDS: PROSCAR 5 MG PO (08:29)
[2025-01-10] MEDS: ELIQUIS 5 MG PO (08:29)
[2025-01-10] MEDS: NORVASC 5 MG PO (08:29)
[2025-01-10] MEDS: PROTONIX 40 MG PO (08:29)
[2025-01-10] MEDS: MIRALAX PO (08:31)
[2025-01-10 10:00] VITALS: BMI 25.5
--- NOTE | 2025-01-10 10:21 | HOSPNOTE ---
Spoke with nephew and the plan is case picker at 12noon, nephew will be driving. I discussed hospice and the philosophy and hiring private caregivers. Once patient goes home we will admit onto hospice services. All questions were answered. Attending and
CM aware of plan.
[2025-01-10 10:52] VITALS: BP 124/74
--- NOTE | 2025-01-10 12:23 | W.PN.HOSP.TC ---
Today's Communication/Plan
-
discharge on home hospice
Assessment / Plan
Assessment / Plan
84 y/o male with RCC with mets with abdominal pain. Poor po intake.
CT abdomen pelvis-large 7.3 cm right renal cell carcinoma. Moderate to passive hepatic venous congestion in the liver. Moderate gallbladder distention. Mild intrahepatic biliary dilatation.2.0 cm infrarenal abdominal aortic saccular aneurysm
which appears unchanged. Minimal ascites.Severe diverticulosis in the sigmoid colon. Chronic urinary bladder outlet obstruction with multiple diverticula.Moderately enlarged prostate gland.8 mm RIGHT LOWER LOBE PULMONARY METASTASIS.Mild cardiomegaly
with suggestion of right heart failure. Severe multilevel lumbar discogenic degenerative disease.
Pt says abdomen feels great
No pain.
CVS: S1-S2 normal, sm at apex and RHB
Chest: CTA B/L
Abdomen: Soft, NT / Bowel sounds present
Extremities: No edema
Denies any pain whatsoever. Stated that he also ate breakfast feeling good
# Abdominal pain and distension-likely secondary to malignancy and hepatic congestion. Patient feels much better now
# Hyponatremia , SIADH physiology-fluid restriction. Sodium is better. Got a dose of Lasix yesterday
# Metastatic RCC-patient wants hospice
# Persistent atrial fibrillation-not on any rate controlling agents. On Eliquis
# Coronary artery disease-history of CABG at [facility] 2002-patient has been on Eliquis, statin,lisinopril
# Chronic HFpEF-additional dose of Lasix given hyponatremia. Continue Lasix
# History of mitral valve repair in 2002
# Moderate TR
# Hypertension-was on amlodipine, lisinopril as outpatient
# Hyperlipidemia-was on statin as outpatient
# Enlarged prostate-was on finasteride as outpatient
# History of CVA-continue Eliquis. May stop once patient goes on hospice
# GERD/HH-continue PPI
# Diverticulosis
# Severe multilevel lumbar discogenic degenerative changes
# 2.0 cm infrarenal AAA
# Ambulatory dysfunction/history of polio
# DVT prophylaxis-Eliquis
# DNR
Discussed with hospice
Discussed with patient's nephew and at bedside
Plan is for discharge to hospice
More than 30 minutes spent in discharge including
Final examination of the patient
Summarizing hospital stay
Instructions for continuing care to all relevant caregivers
Preparation of discharge records, prescriptions, and referral forms
Part of this note was created using voice recognition system. Occasional wrong word or��sound alike� substitutions may have inadvertently occurred due to the inherent limitations of voice recognition software. If noted kindly bring it to my
attention for correction.
Anticipated Discharge: Today
Subjective/Interval History
-
Date of Service: January 10, 2025
Objective Data
-
Vital Signs:
Vital Signs
Temp Pulse Resp BP Pulse Ox
98.3 F 81 16 124/74 97
01/10/25 10:52 01/10/25 10:52 01/10/25 10:52 01/10/25 10:52 01/10/25 10:52
I&O
01/09/25 01/10/25 01/11/25
06:59 06:59 06:59
Intake Total 1200 / 1200
Balance 1200 / 1200
--- NOTE | 2025-01-10 12:38 | CM ---
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
IMM explained & signed. In chart
PLAN: PLAN: home with hospice today
nephew will transport at 12:00
[2025-01-10] MEDS: FLUZONE HIGH-DOSE 2025-26 0.5 ML IM (12:40)
--- NOTE | 2025-01-10 16:44 | W.DCSUMMARY ---
Discharge Summary
Discharge Data
Date of Admission: 01/08/25
Date of Discharge: 01/10/25
-
Pending Results: No
Hospital Course
Discharging Physician : Dr. Yamil Sun
Disposition : Home with hospice
Principal Discharge diagnosis :
Abdominal pain and distention, likely secondary to malignancy and hepatic congestion
Hyponatremia
Metastatic RCC
Persistent atrial fibrillation
Hypertension
Hyperlipidemia
GERD
Chronic HFpEF
Hospital Course :
A 84 year old male with a PMH for RCC with pulmonary metastasis, atrial fibrillation, coronary artery disease s/p CABG, HTN, hyperlipidemia, and GERD who presented to ED with progressive fatigue and abdominal bloating. He reported poor oral
intake for 3 days due to abdominal discomfort but no nausea, vomiting, diarrhea, fever, chills, chest pain, shortness of breath or urinary symptoms. CT abdomen revealed a large 7.3 cm renal cell carcinoma with moderate hepatic venous congestion and
8 mm right lower lobe pulmonary (possible) metastasis. The patient is not currently receiving treatment for his malignancy and has expressed no interest in the same..
The hospital course was notable for hyponatremia with Na improving from 125 to 131. Laboratory evaluation showed hypoosmolar hyponatremia with elevated urine osmolality and urine sodium- consistent with SIADH. The patient was placed on 48 oz fluid
restriction and received one dose of IV Lasix 40 mg. His BP was managed with continuation of amlodipine 5 mg and lisinopril 20 mg daily; hyperlipidemia with atorvastatin 40 mg nightly; atrial fibrillation on Eliquis 5 mg twice daily. GERD symptoms
remained controlled on pantoprazole. The patient tolerated oral intake and was clinically stable at the time of discharge. Given the patient�s decision to not receive additional oncological treatment, goals of care were reviewed with family and
ultimately getting discharged home with hospice.
Important imaging findings :
CT abdomen repeat 01/08/25:
1. LARGE 7.3 cm RIGHT RENAL CELL CARCINOMA.
2. Moderate passive hepatic venous congestion in the liver.
3. Moderate gallbladder distention.
4. Mild intrahepatic biliary dilatation.
5. Previous hiatal hernia repair.
6. 2.0 cm infrarenal abdominal aortic saccular aneurysm which appears unchanged.
7. Minimal ascites.
8. Severe diverticulosis in the sigmoid colon.
9. 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
10. Moderately enlarged prostate gland.
11. 8 mm RIGHT LOWER LOBE PULMONARY METASTASIS.
12. Mild cardiomegaly with suggestion of right heart failure.
13. Severe multilevel lumbar discogenic degenerative disease
Discharge Plan
-
Patient Disposition: Home with Hospice
Discharge Diagnosis/Procedures: Abdominal pain and distention, likely secondary to malignancy and hepatic congestion
Hyponatremia
Metastatic RCC
Persistent atrial fibrillation
Hypertension
Hyperlipidemia
GERD
Chronic HFpEF
Condition: Good
Diet: As tolerated
Activity: As tolerated
Driving Restrictions: As prior to admission
Other Services: Hospice
Referrals:
Camacho Martinez PA-C [Family Provider, Family Practice] - in less than 1 week
Prescriptions:
New
polyethylene glycol 3350 [Miralax] 17 gram powder in packet
17 g PO DAILY Qty: 30 0RF
senna 8.6 mg capsule
8.6 mg PO HS PRN (Reason: CONSTIPATION) Qty: 30 0RF
Continued
Eliquis 5 mg tablet
5 mg PO BID Qty: 60 0RF
Rx Instructions:
Resume on 06/16/2023
atorvastatin 40 mg Tablet
40 mg PO HS
lisinopril 20 mg Tablet
20 mg PO DAILY
finasteride 5 mg Tablet
5 mg PO DAILY
amlodipine 5 mg Tablet
5 mg PO DAILY
melatonin 10 mg Tablet
10 mg PO HS PRN (Reason: Sleep)
furosemide [Lasix] 20 mg tablet
20 mg PO DAILY
pantoprazole 40 mg Tablet,Delayed Release (Dr/Ec)
40 mg PO BID Qty: 0 0RF
Discharge Orders:
Discharge Patient (As Directed); Ordered 01/10/25
Ordered By: Yamil Sun
Discharge Date and Time
Discharge Date/Time: 01/10/25 13:08
Print Language: SYRIAC
== END 2025-01-10 13:08 | disposition hospice, home (50) | DRG 687 ==
LOC: 3 WEST ACU 22:34
PROVIDERS: Nurse Practitioner Family; Physician Assistant; ADMITTING PHYSICIAN Hospitalist; ATTENDING PHYSICIAN Hospitalist; EMERGENCY PHYSICIAN Emergency Medicine; FAMILY PHYSICIAN Physician Assistant Medical
PROC: 3E02340 Introduction of Influenza Vaccine into Muscle, Percutaneous Approach (ICD-10-PCS; 2025-01-10)
DX: C64.1 Malignant neoplasm of right kidney, except renal pelvis (principal); C78.00 Secondary malignant neoplasm of unspecified lung; E22.2 Syndrome of inappropriate secretion of antidiuretic hormone; I48.19 Other persistent atrial fibrillation; I50.32 Chronic diastolic (congestive) heart failure; K21.9 Gastro-esophageal reflux disease without esophagitis; I25.10 Atherosclerotic heart disease of native coronary artery without angina pectoris; Z95.1 Presence of aortocoronary bypass graft; E78.5 Hyperlipidemia, unspecified; N32.0 Bladder-neck obstruction; N40.0 Benign prostatic hyperplasia without lower urinary tract symptoms; K82.8 Other specified diseases of gallbladder; K76.1 Chronic passive congestion of liver; I11.0 Hypertensive heart disease with heart failure; Z79.01 Long term (current) use of anticoagulants; Z86.73 Personal history of transient ischemic attack (TIA), and cerebral infarction without residual deficits; D64.9 Anemia, unspecified; G47.00 Insomnia, unspecified; F32.A Depression, unspecified; F41.9 Anxiety disorder, unspecified; Z79.899 Other long term (current) drug therapy; Z66 Do not resuscitate; Z23 Encounter for immunization
CPT/HCPCS: 51798; 74177; 80048; 80053; 81003; 81015; 83690; 83930; 83935; 84300; 85025; 90662; 96374; 99285; G0008; Q9967